=== PATIENT | female | born 1935 ===

== ENCOUNTER 2016-11-03 19:54 | Inpatient (IN) | payer OTHER ==
[2016-11-03 19:55] VITALS: BMI 15.4
[2016-11-03] MEDS ORDERED: Ampicillin/Sulbactam 3 GM in Sodium Chloride 0.9% 100 ML IVPB STA (21:58)
[2016-11-03] MEDS ORDERED: Vancomycin 1gm in NS 250ml 1 GM/250 ML BAG IVPB STA (21:59)
--- NOTE | 2016-11-03 22:41 | ED PDOC ---
Arrival/HPI - General Chief Complaint: Lower Extremity Problem/Injury Time Seen by Provider: 11/03/16 21:52 Historian: Patient - History of Present Illness Narrative History of Present Illness (Text): 11/03/16 21:50 Saniya Valdez is an 81 year old female who presents to the Emergency department for right 3rd toe discoloration and ulcer. Patient recently returned today from a vacation to the [facility] for the last 2 months and notes while there she injured her right 3rd toe 1 month prior. Patient states she went to a doctor there and was given antibiotics, which she took for 1 week and finished yesterday but does not know the name of the medication. Patient came to the Emergency room today because her 3rd right toe is black in appearance and notes a shallow ulcer to the base of the tow. Patient denies any fever, chills, calf pain, chest pain, shortness of breath, headache, dizziness, or any other complaints. As per daughter, patient used to be followed by tariff inspector, Dr. Arevalo. PMD: Dr. Muir Symptom Onset: Gradual Symptom Course: Worsening Activities at Onset: Light Context: Home Past Medical History - Provider Review Nursing Documentation Reviewed: Yes - Travel History If Yes, travel location?: [facility] - Infectious Disease Hx of Infectious Diseases: None - Tetanus Immunization Tetanus Immunization: Unknown - Cardiac Hx Cardiac Disorders: Yes Hx Hypertension: Yes - Pulmonary Hx Respiratory Disorders: Yes Hx Asthma: Yes - Neurological Hx Neurological Disorder: Yes HX Cerebrovascular Accident: Yes (2008) - HEENT Hx HEENT Disorder: Yes Hx Blind: Yes (right eye sx) Hx Cataracts: Yes (left eye sx) - Renal Hx Renal Disorder: No - Endocrine/Metabolic Hx Endocrine Disorders: Yes Hx Diabetes Mellitus Type 2: Yes - Hematological/Oncological Hx Blood Disorders: Yes 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 - Integumentary Hx Cellulitis: Yes - Musculoskeletal/Rheumatological Hx Musculoskeletal Disorders: Yes Hx Falls: Yes - Gastrointestinal Hx Gastrointestinal Disorders: No - Genitourinary/Gynecological Hx Genitourinary Disorders: No - Psychiatric Hx Psychophysiologic Disorder: No Hx Depression: No Hx Emotional Abuse: No Hx Physical Abuse: No Hx Substance Use: No - Past Surgical History Past Surgical History: No Previous - Surgical History Other/Comment: ANGIOGRAM - Anesthesia Hx Anesthesia: Yes - Suicidal Assessment Feels Threatened In Home Enviroment: No Family/Social History - Physician Review Nursing Documentation Reviewed: Yes Family/Social History: Unknown Family HX Smoking Status: Never Smoked Hx Alcohol Use: No Hx Substance Use: No Hx Substance Use Treatment: No Allergies/Home Meds Allergies/Adverse Reactions: Allergies No Known Allergies Allergy (Verified 11/03/16 19:59) Home Medications: Home Meds Medication Instructions Recorded Confirmed Aspirin 81 mg PO DAILY 08/03/12 11/03/16 Glyburide [Micronase] 5 mg PO DAILY 09/03/12 11/03/16 Insulin Detemir [Levemir] 20 unit SC ACB 09/03/12 11/03/16 Carvedilol 6.25 mg PO BID 06/13/13 11/03/16 Sitagliptin Phosphate [Januvia] 50 mg PO DAILY 06/13/13 11/03/16 Lovastatin 20 mg PO DAILY 09/13/13 11/03/16 Vitamin D 50,000 iu PO QWK 09/13/13 11/03/16 Losartan/Hydrochlorothiazide 1 tab PO DAILY 01/25/14 11/03/16 [Losartan-Hctz 50-12.5 mg Tab] Montelukast [Singulair] 10 mg PO DAILY 01/25/14 11/03/16 Review of Systems - Physician Review All systems were reviewed & negative as marked: Yes - Review of Systems Constitutional: Normal. absent: Fevers Eyes: Normal ENT: Normal Respiratory: Normal. absent: SOB, Cough Cardiovascular: Normal. absent: Chest Pain Gastrointestinal: Normal. absent: Abdominal Pain, Diarrhea, Nausea, Vomiting Genitourinary Female: Normal. absent: Dysuria, Frequency, Hematuria, Urine Output Changes Musculoskeletal: Normal. absent: Back Pain, Neck Pain Skin: Ulcer (ulcer to base of right 3rd toe), Other (+black 3rd right toe). absent: Rash Neurological: Normal. absent: Headache, Dizziness Endocrine: Normal Hemo/Lymphatic: Normal Psychiatric: Normal Physical Exam Vital Signs Reviewed: Yes Vital Signs Temp Pulse Resp BP Pulse Ox 11/04/16 03:03 86 16 156/74 H 100 11/03/16 23:55 81 16 177/84 H 99 11/03/16 20:01 99.1 F 69 17 206/71 H 97 Temperature: Afebrile Blood Pressure: Hypertensive Pulse: Regular Respiratory Rate: Normal Appearance: Positive for: Well-Appearing, Non-Toxic, Comfortable Pain Distress: None Mental Status: Positive for: Alert and Oriented X 3 - Systems Exam Head: Present: Atraumatic, Normocephalic Pupils: Present: PERRL Extroacular Muscles: Present: EOMI Conjunctiva: Present: Normal Mouth: Present: Moist Mucous Membranes Neck: Present: Normal Range of Motion Respiratory/Chest: Present: Clear to Auscultation, Good Air Exchange. No: Respiratory Distress, Accessory Muscle Use Cardiovascular: Present: Regular Rate and Rhythm, Normal S1, S2. No: Murmurs Abdomen: Present: Normal Bowel Sounds. No: Tenderness, Distention, Peritoneal Signs Upper Extremity: Present: Normal Inspection. No: Cyanosis, Edema Lower Extremity: Present: NORMAL PULSES (Weak distal pulses in right foot), Normal ROM (Full ROM in all toes), Neurovascularly Intact (Sensation intact), Capillary Refill < 2 s, Other (Right 3rd toe is black in color. Shallow 3x3 cm ulcer to distal 3rd right metatarsal, no discharge, there is surrounding erythema, tender to touch). No: Edema, CALF TENDERNESS Neurological: Present: GCS=15, CN II-XII Intact, Speech Normal Skin: Present: Warm, Dry, Normal Color. No: Rashes Psychiatric: Present: Alert, Oriented x 3, Normal Insight, Normal Concentration Medical Decision Making ED Course and Treatment: 11/03/16 21:50 Impression: 81 year old female complaining of right mid-toe discoloration/pain and ulcer. Plan: -- EKG -- CXR -- Labs, VBG, blood cultures, wound cultures -- XR Right Foot -- Vanco IV -- Unasyn IV -- Reassess and disposition Progress Notes: EKG: NSR at 76 bpm, LVH, (-) acute ST changes, as read by BULMARO. CXR : CM, otherwise NAD, as read by PA XR R foot: no fracture, no dislocation, as read by PA Labs reviewed : wbc is wnl, glucose is 341, lactate 1.1 Patient given regular insulin 6 units SC. On re-evaluation, patient is resting in bed comfortably in no acute distress. Has no additional complaints at this time. Lab and XR findings d/w the patient and with family members. Notified of plan for admission for DM foot ulcer and infection, which the patient and family members agree to. As per family, patient used to follow up with Dr. Arevalo in the past for podiatry. VS: P 81 BP 177/84 99%RA. Case d/w hospitalist Dr. Shay Bartlett, agree with plan for admission. Consult placed for Dr. Arevalo. - Lab Interpretations Microbiology Results: Microbiology Results 11/03/16 22:15 Blood Blood Culture - Preliminary NO GROWTH AFTER 24 HOURS 11/03/16 22:36 Blood Blood Culture - Preliminary NO GROWTH AFTER 24 HOURS Lab Results: 11/03/16 22:36 11/03/16 22:36 Lab Results 11/03/16 22:36: pO2 36, VBG pH 7.34, VBG pCO2 54.0, VBG HCO3 29.1 H, VBG Total CO2 30.8 H, VBG O2 Sat (Calc) 75.4 H, VBG Base Excess 2.5 H, VBG Potassium 4.8, Sodium 135.0, Chloride 103.0, Glucose 339 H, Lactate 1.1, FiO2 21.0, Venous Blood Potassium 4.8 11/03/16 22:36: Sodium 135, Chloride 99, Potassium 5.0, Carbon Dioxide 28, Anion Gap 13, BUN 21, Creatinine 1.1, Est GFR ( Amer) 57, Est GFR (Non- Af Amer) 47, Random Glucose 341 H* D, Calcium 9.4, Total Bilirubin 0.5, AST 25, ALT 21, Alkaline Phosphatase 116, Total Protein 7.3, Albumin 3.6, Globulin 3.7, Albumin/Globulin Ratio 1.0 L 11/03/16 22:36: PT 10.7, INR 0.99, APTT 32.4 H 11/03/16 22:36: WBC 8.8, RBC 4.23, Hgb 11.0 L, Hct 34.0 L, MCV 80.4, MCH 26.0, MCHC 32.4, RDW 14.1, Plt Count 378, MPV 9.8, Gran % 71.9 H, Lymph % (Auto) 16.9 L, [place] % (Auto) 8.9 H, Eos % (Auto) 2.2, Baso % (Auto) 0.1, Gran # 6.32, Lymph # 1.5, [place] # 0.8 H, Eos # 0.2, Baso # 0.01 - RAD Interpretation Narrative RAD Interpretations (Text): 11/05/16 09:32 XR R FOOT: FINDINGS: BONES: No radiographic evidence of acute osteomyelitis. JOINTS: Normal. SOFT TISSUES: Plantar soft tissue swelling. OTHER FINDINGS: None. IMPRESSION: Soft tissue swelling without acute articular or osseous abnormality. There is no radiographic evidence for acute osteomyelitis. Radiology Orders: 11/03/16 21:52 CHEST PORTABLE [RAD] Stat 11/03/16 21:59 FOOT RIGHT 3 VIEWS ROUTINE [RAD] Stat - Medication Orders Current Medication Orders: Acetaminophen (Tylenol 325mg Tab) 650 mg PO Q6H PRN PRN Reason: Fever >100.4 F Last Admin: 11/04/16 20:52 Dose: 650 mg Re-Assess: LESLIE Pain/Vitals Document 11/04/16 21:52 BN (Rec: 11/04/16 22:38 BN [id number]) Vitals Temperature (97.6 F-99.6 F) 99.4 F Temperature Source Oral Aspirin (Aspirin Chewable) 81 mg PO DAILY [facility] Last Admin: 11/04/16 10:42 Dose: 81 mg Atorvastatin Calcium (Lipitor) 10 mg PO DIN [facility] Last Admin: 11/04/16 17:32 Dose: 10 mg Carvedilol (Coreg) 6.25 mg PO BID [facility] Last Admin: 11/04/16 17:32 Dose: 6.25 mg Docusate Sodium (Colace) 100 mg PO BID [facility] Last Admin: 11/04/16 17:32 Dose: 100 mg Ergocalciferol (Drisdol 50,000 Intl Units Cap) 1 cap PO Q7D [facility] Last Admin: 11/04/16 10:44 Dose: 1 cap Hydrochlorothiazide (Microzide) 12.5 mg PO DAILY [facility] Last Admin: 11/04/16 10:43 Dose: 12.5 mg Vancomycin HCl (Vancomycin 1gm) 1 gm in 250 mls @ 167 mls/hr IVPB Q12 VALERIE PRN Reason: Protocol Last Admin: 11/04/16 22:26 Dose: 167 mls/hr Cefepime HCl (Maxipime 1gm) 1 gm in 100 mls @ 100 mls/hr IVPB Q8 VALERIE PRN Reason: Protocol Stop: 11/11/16 14:01 Last Admin: 11/05/16 05:15 Dose: 100 mls/hr Insulin Detemir (Levemir) 20 unit SC DAILY [facility] Last Admin: 11/04/16 14:20 Dose: Insulin Human Regular (Humulin R Med) 0 units SC ACHS VALERIE PRN Reason: Protocol Last Admin: 11/04/16 21:53 Dose: Not Given Non-Admin Reason: Blood Sugar Parameter Losartan Potassium (Cozaar) 50 mg PO DAILY [facility] Last Admin: 11/04/16 10:42 Dose: 50 mg Montelukast Sodium (Singulair) 10 mg PO [facility] Last Admin: 11/04/16 21:14 Dose: 10 mg Oxycodone/Acetaminophen (Percocet 5/325 Mg Tab) 1 tab PO Q4H PRN PRN Reason: Pain, moderate (4-7) Stop: 11/07/16 04:19 Last Admin: 11/04/16 20:48 Dose: 1 tab Re-Assess: LESLIE Pain Assessment Document 11/04/16 21:48 BN (Rec: 11/04/16 22:44 BN [id number]) Pain Reassessment Is this a pain reassessment? Yes Sleep Is patient sleeping during reassessment? Yes Discontinued Medications Hydralazine HCl (Apresoline) 10 mg IVP STAT [facility] Stop: 11/04/16 01:46 Last Admin: 11/04/16 04:32 Dose: 10 mg Ampicillin Sodium/Sulbactam (Sodium 3 gm/ Sodium Chloride) 100 mls @ 100 mls/ hr IVPB STAT STA PRN Reason: Protocol Stop: 11/03/16 22:57 Last Admin: 11/04/16 00:10 Dose: 100 mls/hr Vancomycin HCl (Vancomycin 1gm) 1 gm in 250 mls @ 167 mls/hr IVPB STAT STA PRN Reason: Protocol Stop: 11/03/16 23:28 Last Admin: 11/03/16 22:33 Dose: 167 mls/hr Sodium Chloride (Sodium Chloride 0.9%) 500 mls @ 500 mls/hr IV .Q1H STA Stop: 11/04/16 01:16 Last Admin: 11/04/16 00:55 Dose: 500 mls/hr Insulin Human Regular (Humulin R) 6 units SC STAT ST[facility] Stop: 11/04/16 00:18 Last Admin: 11/04/16 01:08 Dose: 6 units - PA / PARI [employer] / Resident Statement / has reviewed & agrees with the documentation as recorded. Disposition/Present on Arrival - Present on Arrival Any Indicators Present on Arrival: Yes History of DVT/PE: No History of Uncontrolled Diabetes: Yes Urinary Catheter: No History of Decub. Ulcer: No History Surgical Site Infection Following: None - Disposition Have Diagnosis and Disposition been Completed?: Yes Diagnosis: DM foot ulcer Disposition: HOSPITALIZED Disposition Time: 00:00 Patient Plan: Admission Condition: STABLE
[2016-11-03 22:42] LABS: VENOUS BLOOD GAS BASE EXCESS 2.5 mmol/L (0.0-2.0); VENOUS BLOOD PH 7.34 (7.32-7.43)
[2016-11-03 22:47] LABS: BASO # 0.01 K/mm3 (0.0-2.0); BASO % 0.1 % (0.0-3.0); EOS # 0.2 (0.0-0.7); EOS % 2.2 % (1.5-5.0); GRAN # 6.32 (1.4-6.5); GRAN % 71.9 % (50.0-68.0); LYMPH # 1.5 (1.2-3.4); LYMPH % 16.9 % (22.0-35.0); MEAN CELL VOLUME 80.4 fl (80.0-105.0); MEAN CORPUSCULAR HGB CONC 32.4 g/dl (31.0-37.0); MEAN PLATELET VOLUME 9.8 fl (7.0-11.0); MONO # 0.8 (0.1-0.6); MONO % 8.9 % (1.0-6.0); RED CELL DISTRIBUTION WIDTH 14.1 % (11.5-14.5); WHITE BLOOD COUNT 8.8 10^3/ul (4.5-11.0)
[2016-11-03 22:56] LABS: INR 0.99 (0.93-1.08); PARTIAL THROMBOPLASTIN TIME 32.4 Seconds (23.7-30.8)
[2016-11-03 23:13] LABS: BILIRUBIN,TOTAL 0.5 mg/dL (0.2-1.3); CALCIUM 9.4 mg/dL (8.4-10.5); TOTAL PROTEIN 7.3 g/dL (5.8-8.3)
[2016-11-04] MEDS ORDERED: Sodium Chloride 0.9% 500 ML IV STA (00:17)
[2016-11-04] MEDS ORDERED: Insulin Regular 1 UNITS/0.01 ML ML SC STA (00:17)
--- NOTE | 2016-11-04 01:54 | CP.PCM.HP ---
<ROMELIARANI - Last Filed: 11/04/16 01:46> History of Present Illness - History of Present Illness History of Present Illness: Rani Dupont, PGY1, H&P for Dr. Bartlett: CC: R toe discoloration HPI: 81F with PMH IDDM, HTN, HLD, presents for right 3rd toes discoloration. Pt also has a shallow, right distal foot ulcer. It started when pt hit her right foot 1 month ago in [place], had an open wound, painful at times, with worsening about a week ago, with a bullae formation at the ulcer site, which was drained by a doctor in [place] days ago, and was given 4 days of unknown PO antibiotics (pt finished last dose today). Pt had worsening of the ulcer, sharp, painful, with swelling, erythema, warmth at the site, and noticed a "black" right 3rd toe 2 days ago, which made pt come to ED. Denies f/c, n/v, air /crepitations, worsening erythema, calf pain. In ED, pt T 99.1, hypertensive 206 /71, hyperglycemic 341, hgb 11 (baseline 10-11), ptt 32.4, lactate nrml 1.1, received 6 units of regular insulin, 500 ml NS bolus, 1 dose of IV Vanco and Unsayn in ED. Currently, pt denies pain, cp, sob, diaphoresis, abdominal pain, poor appetitie , anorexia, fatigue, urinary symptoms, leg swelling. Steel Hanger: Dr. Arevalo (was recently treated for a left foot ulcer 6 months ago ) PMD: [facility] Prev Hosp: 2014: dehydration and syncope at [facility] PMH: IDDM, HTN, CVA. HLD, Asthma PSH: Denies All : NKA FH: Mom, DM SH: Lives with family. Denies alcohol, drug or tobacco use. Came back to [place] from [facility] yesterday, for a 2 month vacation. Present on Admission - Present on Admission Any Indicators Present on Admission: No History of DVT/PE: No History of Uncontrolled Diabetes: Yes Urinary Catheter: No Decubitus Ulcer Present: No History Surgical Site Infection Following: None Review of Systems - Review of Systems All systems: reviewed and no additional remarkable complaints except Review of Systems: as per hpi Past Patient History - Infectious Disease Hx of Infectious Diseases: None - Tetanus Immunizations Tetanus Immunization: Unknown - Past Medical History & Family History Past Medical History?: Yes - Past Social History Smoking Status: Never Smoked - CARDIAC Hx Cardiac Disorders: Yes Hx Hypertension: Yes - PULMONARY Hx Respiratory Disorders: Yes Hx Asthma: Yes - NEUROLOGICAL Hx Neurological Disorder: Yes HX Cerebrovascular Accident: Yes (2008) - HEENT Hx HEENT Problems: Yes Hx Blind: Yes (right eye sx) Hx Cataracts: Yes (left eye sx) - RENAL Hx Chronic Kidney Disease: No - ENDOCRINE/METABOLIC Hx Endocrine Disorders: Yes Hx Diabetes Mellitus Type 2: Yes - HEMATOLOGICAL/ONCOLOGICAL Hx Blood Disorders: Yes 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 - INTEGUMENTARY Hx Cellulitis: Yes - MUSCULOSKELETAL/RHEUMATOLOGICAL Hx Musculoskeletal Disorders: Yes Hx Falls: Yes - GASTROINTESTINAL Hx Gastrointestinal Disorders: No - GENITOURINARY/GYNECOLOGICAL Hx Genitourinary Disorders: No - PSYCHIATRIC Hx Psychophysiologic Disorder: No Hx Depression: No Hx Emotional Abuse: No Hx Physical Abuse: No Hx Substance Use: No - SURGICAL HISTORY Other/Comment: ANGIOGRAM - ANESTHESIA Hx Anesthesia: Yes Meds Allergies/Adverse Reactions: Allergies Allergy/AdvReac Type Severity Reaction Status Date / Time No Known Allergies Allergy Verified 11/03/16 19:59 Physical Exam - Constitutional Appears: Non-toxic, Unkempt, Older Than Stated Age, Cachectic - Head Exam Head Exam: ATRAUMATIC, NORMOCEPHALIC - Eye Exam Eye Exam: EOMI, Normal appearance. 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 Negative for: Lymphadenopathy, Thyromegaly - Respiratory Exam Respiratory Exam: Clear to Auscultation Bilateral, NORMAL BREATHING PATTERN. absent: Accessory Muscle Use, Rales, Rhonchi, Wheezes - Cardiovascular Exam Cardiovascular Exam: RRR, +S1, +S2. absent: Bradycardia, Tachycardia, Systolic Murmur - GI/Abdominal Exam GI & Abdominal Exam: Normal Bowel Sounds, Soft. absent: Distended, Guarding, Rebound, Tenderness - Extremities Exam Extremities exam: Negative for: calf tenderness Additional comments: pedal pulses 1+ b/l. chronic venous stasis changes noted. R foot distal ulcer noted near R 3rd toe, 3 cmx3.7 cm, red/white in color, R 3rd toes black in color , no purulent discharge or abscess or eschar noted. No crepitations/bullae present. Line of demarcation up to mid foot. - Back Exam Back exam: absent: CVA tenderness (L), CVA tenderness (R), rash noted - Neurological Exam Neurological exam: Alert, Oriented x3 - Psychiatric Exam Psychiatric exam: Normal Mood - Skin Skin Exam: Dry, Warm Results - Vital Signs Recent Vital Signs: Last Vital Signs Temp 99.1 F 11/03/16 20:01 Pulse 81 11/03/16 23:55 Resp 16 11/03/16 23:55 BP 177/84 H 11/03/16 23:55 Pulse Ox 99 11/03/16 23:55 - Labs Result Diagrams: 11/03/16 22:36 11/03/16 22:36 Labs: Laboratory Results - last 24 hr 11/03/16 11/03/16 11/03/16 22:36 22:36 22:36 WBC 8.8 RBC 4.23 Hgb 11.0 L Hct 34.0 L MCV 80.4 MCH 26.0 MCHC 32.4 RDW 14.1 Plt Count 378 MPV 9.8 Gran % 71.9 H Lymph % (Auto) 16.9 L [place] % (Auto) 8.9 H Eos % (Auto) 2.2 Baso % (Auto) 0.1 Gran # 6.32 Lymph # 1.5 [place] # 0.8 H Eos # 0.2 Baso # 0.01 PT 10.7 INR 0.99 APTT 32.4 H pO2 VBG pH VBG pCO2 VBG HCO3 VBG Total CO2 VBG O2 Sat (Calc) VBG Base Excess VBG Potassium Sodium 135 Chloride 99 Glucose Lactate FiO2 Potassium 5.0 Carbon Dioxide 28 Anion Gap 13 BUN 21 Creatinine 1.1 Est GFR ( Amer) 57 Est GFR (Non-Af Amer) 47 Random Glucose 341 H* D Calcium 9.4 Total Bilirubin 0.5 AST 25 ALT 21 Alkaline Phosphatase 116 Total Protein 7.3 Albumin 3.6 Globulin 3.7 Albumin/Globulin Ratio 1.0 L Venous Blood Potassium 11/03/16 22:36 WBC RBC Hgb Hct MCV MCH MCHC RDW Plt Count MPV Gran % Lymph % (Auto) [place] % (Auto) Eos % (Auto) Baso % (Auto) Gran # Lymph # [place] # Eos # Baso # PT INR APTT pO2 36 VBG pH 7.34 VBG pCO2 54.0 VBG HCO3 29.1 H VBG Total CO2 30.8 H VBG O2 Sat (Calc) 75.4 H VBG Base Excess 2.5 H VBG Potassium 4.8 Sodium 135.0 Chloride 103.0 Glucose 339 H Lactate 1.1 FiO2 21.0 Potassium Carbon Dioxide Anion Gap BUN Creatinine Est GFR ( Amer) Est GFR (Non-Af Amer) Random Glucose Calcium Total Bilirubin AST ALT Alkaline Phosphatase Total Protein Albumin Globulin Albumin/Globulin Ratio Venous Blood Potassium 4.8 Assessment & Plan - Assessment and Plan (Free Text) Assessment: 81F with PMH IDDM, HTN, HLD, CVA, presents for right 3rd toe discoloration, right distal foot ulcer, uncontrolled HTN, hyperglycemia. Plan: Right distal foot ulcer near right 3rd toe/necrotic R 3rd toe: - likely cellulitis vs osteomyelitis vs less likely necrotizing fascitis vs necrosis of toe - T 99.1, received 4 days of PO outpatient antibiotic therapy (finished last dose today) - unknown antibiotic. - F/u blood and wound cultures - Received Vanco 1 gm IVx1, and Unasyn 3 gm IV x1, in ED - Will start on Vanco (for MRSA) and Ceftriaxone (for Gr neg coverage), since pt is diabetic - F.u Podiatry consult, recs. Consider MRI to r/o osteomyelitis. May do CT if concern nec fascitis. f/u CRP, ESR - maintain tight glycemic control Hypertension: - BP 206/71 in ED, will give hydralazine 10 mg iV - C/w home meds carvedilol and losartan/hctz IDDM: - BS 341 in ED, received 6 units of SQ regular insulin. - hold home oral antidiabetics - c.w home levemir and on ISS Hx of HLD: - f/u lipid panel - c/w lovastatin Hx of asthma: singulair DVT ppx: SCDs GI ppx: protonix Discussed with Dr Dhruv Dupont, PGY1 - Date & Time Date: 11/04/16 Time: 02:03 <Martir Bartlett - Last Filed: 11/12/16 06:54> Results - Vital Signs Recent Vital Signs: Last Vital Signs Temp 100.9 F H 11/12/16 05:48 Pulse 71 11/11/16 19:50 Resp 18 11/11/16 17:50 BP 161/84 H 11/11/16 19:50 Pulse Ox 100 11/11/16 17:50 - Labs Result Diagrams: 11/11/16 08:35 11/11/16 08:35 Labs: Laboratory Results - last 24 hr 11/11/16 11/11/16 11/11/16 08:35 08:35 11:26 WBC 10.7 RBC 3.07 L Hgb 8.0 L Hct 24.6 L MCV 80.1 MCH 26.1 MCHC 32.5 RDW 14.3 Plt Count 274 MPV 9.4 Gran % 68.1 H Lymph % (Auto) 13.8 L [place] % (Auto) 14.2 H Eos % (Auto) 3.7 Baso % (Auto) 0.2 Gran # 7.27 H Lymph # 1.5 [place] # 1.5 H Eos # 0.4 Baso # 0.02 Sodium 132 Potassium 4.1 Chloride 100 Carbon Dioxide 25 Anion Gap 11 BUN 25 H Creatinine 1.2 Est GFR ( Amer) 52 Est GFR (Non-Af Amer) 43 POC Glucose (mg/dL) 148 H Random Glucose 124 H Calcium 8.6 Total Bilirubin 0.5 AST 37 H ALT 45 Alkaline Phosphatase 87 Total Protein 5.7 L Albumin 2.6 L Globulin 3.2 Albumin/Globulin Ratio 0.8 L 11/11/16 11/11/16 15:59 16:01 WBC RBC Hgb Hct MCV MCH MCHC RDW Plt Count MPV Gran % Lymph % (Auto) [place] % (Auto) Eos % (Auto) Baso % (Auto) Gran # Lymph # [place] # Eos # Baso # Sodium Potassium Chloride Carbon Dioxide Anion Gap BUN Creatinine Est GFR ( Amer) Est GFR (Non-Af Amer) POC Glucose (mg/dL) 131 H 181 H Random Glucose Calcium Total Bilirubin AST ALT Alkaline Phosphatase Total Protein Albumin Globulin Albumin/Globulin Ratio
[2016-11-04] MEDS: Oxycodone/Acetaminophen 5/325 mg Tab PO PRN ×2 (04:32→20:48)
[2016-11-04 07:28] LABS: IRON 15 ug/dL (45-180)
[2016-11-04 07:32] LABS: CHOLESTEROL 136 mg/dL (130-200)
[2016-11-04] MEDS: Insulin Reg-MEDIUM-Coverage SC SCH ×4 (08:08→21:53)
--- NOTE | 2016-11-04 08:26 | RAD ---
HISTORY: for admission DM foot ulcer COMPARISON: 01/25/2014 FINDINGS: LUNGS: Retrocardiac haziness possibly left lower lobe atelectasis. PLEURA: No significant pleural effusion identified, no pneumothorax apparent. CARDIOVASCULAR: No radiographic findings to suggest acute or significant cardiovascular disease. OSSEOUS STRUCTURES: No significant abnormalities. VISUALIZED UPPER ABDOMEN: Normal. OTHER FINDINGS: None. IMPRESSION: Left lower lobe infiltrate/atelectasis. The left hemidiaphragm is obscured. These are new findings compared to the prior study.
[2016-11-04] MEDS ORDERED: Non Formulary Medication (Losartan/Hydrochlorothiazide [Losartan-Hctz 50-12.5 Mg Tab] 1 TA PO SCH (10:00)
[2016-11-04] MEDS ORDERED: Insulin Detemir 100 units/ml Vial (Levemir) SC SCH (10:00)
--- NOTE | 2016-11-04 10:30 | RAD ---
PROCEDURE: Right Foot Radiographs. HISTORY: DM foot ulcer COMPARISON: None. FINDINGS: BONES: No radiographic evidence of acute osteomyelitis. JOINTS: Normal. SOFT TISSUES: Plantar soft tissue swelling. OTHER FINDINGS: None. IMPRESSION: Soft tissue swelling without acute articular or osseous abnormality. There is no radiographic evidence for acute osteomyelitis.
[2016-11-04] MEDS: Vancomycin 1gm in NS 250ml 1 GM/250 ML BAG IVPB SCH ×2 (10:42→22:26)
[2016-11-04] MEDS: Ergocalciferol 50,000 Intl Units Cap PO SCH (10:44)
[2016-11-04 11:21] LABS: HEMATOCRIT 33.4 % (36.0-48.0); MEAN CELL VOLUME 80.7 fl (80.0-105.0); MEAN CORPUSCULAR HEMOGLOBIN 25.8 pg (25.0-35.0); MEAN PLATELET VOLUME 9.6 fl (7.0-11.0); RED CELL DISTRIBUTION WIDTH 14.1 % (11.5-14.5); WHITE BLOOD COUNT 15.9 10^3/ul (4.5-11.0)
[2016-11-04 11:35] LABS: BLOOD UREA NITROGEN 20 mg/dL (7-21); CALCIUM 9.3 mg/dL (8.4-10.5); CARBON DIOXIDE 27 mmol/L (21-33); CHLORIDE 102 mmol/L (98-107); GFR AFRICAN-AMERICAN > 60; GLUCOSE,RANDOM 251 mg/dL (70-110); SODIUM 137 mmol/L (132-148)
[2016-11-04 13:20] LABS: FOLATE 10.2 ng/mL
[2016-11-04] MEDS: Cefepime 1gm in NS 100ml 1 GM/100 ML BAG IVPB SCH ×2 (14:20→21:14)
--- NOTE | 2016-11-04 19:46 | CP.PCM.CON ---
History of Present Illness - History of Present Illness History of Present Illness: 81 year old female with PMH of HTN, dyslipidemia, DM, history of CVA, asthma, history of left foot ulcer and infection was brought in to [facility] because of worsening right foot ulcer which started about a month ago when she tripped on a rock while in the [facility] [place]. She also noted that the surrounding foot area got worse over the last 3 days and became warm, red and painful. She was apparently seen in the [facility] [place] by a physician and also noted her 3rd toe to have blackish discoloration. She denies fever or chills, no nausea or vomiting, no headache or dizziness, no chest pain, no SOB, no cough or colds, no abdominal pain, no diarrhea, no dysuria. She denies soaking her feet in water, denies specific animal contacts. Infectious Diseases consult is requested to further evaluate and manage. Review of Systems - Review of Systems All systems: reviewed and no additional remarkable complaints except (as per HPI ) Past Patient History - Infectious Disease Hx of Infectious Diseases: None - Tetanus Immunizations Tetanus Immunization: Unknown - Past Medical History & Family History Past Medical History?: Yes - Past Social History Smoking Status: Never Smoked - CARDIAC Hx Cardiac Disorders: Yes Hx Hypertension: Yes - PULMONARY Hx Respiratory Disorders: Yes Hx Asthma: Yes - NEUROLOGICAL Hx Neurological Disorder: Yes HX Cerebrovascular Accident: Yes (2008) - HEENT Hx HEENT Problems: Yes Hx Blind: Yes (right eye sx) Hx Cataracts: Yes (left eye sx) - RENAL Hx Chronic Kidney Disease: No - ENDOCRINE/METABOLIC Hx Endocrine Disorders: Yes Hx Diabetes Mellitus Type 2: Yes - HEMATOLOGICAL/ONCOLOGICAL Hx Blood Disorders: Yes 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 - INTEGUMENTARY Hx Cellulitis: Yes - MUSCULOSKELETAL/RHEUMATOLOGICAL Hx Musculoskeletal Disorders: Yes Hx Falls: Yes - GASTROINTESTINAL Hx Gastrointestinal Disorders: No - GENITOURINARY/GYNECOLOGICAL Hx Genitourinary Disorders: No - PSYCHIATRIC Hx Psychophysiologic Disorder: No Hx Depression: No Hx Emotional Abuse: No Hx Physical Abuse: No Hx Substance Use: No - SURGICAL HISTORY Other/Comment: ANGIOGRAM - ANESTHESIA Hx Anesthesia: Yes Meds Allergies/Adverse Reactions: Allergies Allergy/AdvReac Type Severity Reaction Status Date / Time No Known Allergies Allergy Verified 11/03/16 19:59 - Medications Medications: Current Medications Acetaminophen (Tylenol 325mg Tab) 650 mg PO Q6H PRN PRN Reason: Fever >100.4 F Aspirin (Aspirin Chewable) 81 mg PO DAILY [facility] Last Admin: 11/04/16 10:42 Dose: 81 mg Atorvastatin Calcium (Lipitor) 10 mg PO DIN [facility] Last Admin: 11/04/16 17:32 Dose: 10 mg Carvedilol (Coreg) 6.25 mg PO BID [facility] Last Admin: 11/04/16 17:32 Dose: 6.25 mg Docusate Sodium (Colace) 100 mg PO BID [facility] Last Admin: 11/04/16 17:32 Dose: 100 mg Ergocalciferol (Drisdol 50,000 Intl Units Cap) 1 cap PO Q7D [facility] Last Admin: 11/04/16 10:44 Dose: 1 cap Hydrochlorothiazide (Microzide) 12.5 mg PO DAILY [facility] Last Admin: 11/04/16 10:43 Dose: 12.5 mg Vancomycin HCl (Vancomycin 1gm) 1 gm in 250 mls @ 167 mls/hr IVPB Q12 [facility] PRN Reason: Protocol Last Admin: 11/04/16 10:42 Dose: 167 mls/hr Cefepime HCl (Maxipime 1gm) 1 gm in 100 mls @ 100 mls/hr IVPB Q8 [facility] PRN Reason: Protocol Stop: 11/11/16 14:01 Last Admin: 11/04/16 14:20 Dose: 100 mls/hr Insulin Detemir (Levemir) 20 unit SC DAILY [facility] Last Admin: 11/04/16 14:20 Dose: Not Given Insulin Human Regular (Humulin R Med) 0 units SC ACHS [facility] PRN Reason: Protocol Last Admin: 11/04/16 17:33 Dose: Not Given Losartan Potassium (Cozaar) 50 mg PO DAILY [facility] Last Admin: 11/04/16 10:42 Dose: 50 mg Montelukast Sodium (Singulair) 10 mg PO HS [facility] Oxycodone/Acetaminophen (Percocet 5/325 Mg Tab) 1 tab PO Q4H PRN PRN Reason: Pain, moderate (4-7) Stop: 11/07/16 04:19 Last Admin: 11/04/16 04:32 Dose: 1 tab Physical Exam - Constitutional Appears: Non-toxic, No Acute Distress - Head Exam Head Exam: NORMAL INSPECTION - ENT Exam ENT Exam: Mucous Membranes Moist - Neck Exam Neck exam: Negative for: Lymphadenopathy, Meningismus - Respiratory Exam Respiratory Exam: Decreased Breath Sounds - Cardiovascular Exam Cardiovascular Exam: +S1, +S2 - GI/Abdominal Exam GI & Abdominal Exam: Soft. absent: Tenderness - Extremities Exam Additional comments: right foot with dressings in place Results - Vital Signs Recent Vital Signs: Last Vital Signs Temp 99.7 F H 11/04/16 16:00 Pulse 80 11/04/16 17:32 Resp 20 11/04/16 16:00 BP 163/76 H 11/04/16 17:32 Pulse Ox 98 11/04/16 16:00 - Labs Result Diagrams: 11/04/16 11:00 11/04/16 11:00 Labs: Laboratory Results - last 24 hr 11/04/16 11/04/16 11/04/16 02:53 05:46 06:15 WBC RBC Hgb Hct MCV MCH MCHC RDW Plt Count MPV ESR Sodium Potassium Chloride Carbon Dioxide Anion Gap BUN Creatinine Est GFR ( Amer) Est GFR (Non-Af Amer) POC Glucose (mg/dL) 208 H Random Glucose Calcium Iron 15 L TIBC 251 L % Saturation 6 L Ferritin Total Creatine Kinase 62 C-React Prot High Sens Triglycerides Cholesterol LDL Cholesterol Direct HDL Cholesterol Vitamin B12 Folate Procalcitonin 11/04/16 11/04/16 11/04/16 06:15 06:15 06:15 WBC RBC Hgb Hct MCV MCH MCHC RDW Plt Count MPV ESR 70 H Sodium Potassium Chloride Carbon Dioxide Anion Gap BUN Creatinine Est GFR ( Amer) Est GFR (Non-Af Amer) POC Glucose (mg/dL) Random Glucose Calcium Iron TIBC % Saturation Ferritin 98.7 Total Creatine Kinase C-React Prot High Sens > 15.00 H Triglycerides 101 Cholesterol 136 LDL Cholesterol Direct 68 HDL Cholesterol 39 Vitamin B12 > 1000 H Folate 10.2 Procalcitonin 11/04/16 11/04/16 11/04/16 07:06 07:39 08:47 WBC RBC Hgb Hct MCV MCH MCHC RDW Plt Count MPV ESR Sodium Potassium Chloride Carbon Dioxide Anion Gap BUN Creatinine Est GFR ( Amer) Est GFR (Non-Af Amer) POC Glucose (mg/dL) 35 L* 68 176 H Random Glucose Calcium Iron TIBC % Saturation Ferritin Total Creatine Kinase C-React Prot High Sens Triglycerides Cholesterol LDL Cholesterol Direct HDL Cholesterol Vitamin B12 Folate Procalcitonin 11/04/16 11/04/16 11/04/16 10:58 11:00 11:00 WBC 15.9 H D RBC 4.14 Hgb 10.7 L Hct 33.4 L MCV 80.7 MCH 25.8 MCHC 32.0 RDW 14.1 Plt Count 399 MPV 9.6 ESR Sodium 137 Potassium 5.0 Chloride 102 Carbon Dioxide 27 Anion Gap 13 BUN 20 Creatinine 1.0 Est GFR ( Amer) > 60 Est GFR (Non-Af Amer) 53 POC Glucose (mg/dL) 283 H Random Glucose 251 H Calcium 9.3 Iron TIBC % Saturation Ferritin Total Creatine Kinase C-React Prot High Sens Triglycerides Cholesterol LDL Cholesterol Direct HDL Cholesterol Vitamin B12 Folate Procalcitonin 11/04/16 11/04/16 11:10 16:30 WBC RBC Hgb Hct MCV MCH MCHC RDW Plt Count MPV ESR Sodium Potassium Chloride Carbon Dioxide Anion Gap BUN Creatinine Est GFR ( Amer) Est GFR (Non-Af Amer) POC Glucose (mg/dL) 311 H Random Glucose Calcium Iron TIBC % Saturation Ferritin Total Creatine Kinase C-React Prot High Sens Triglycerides Cholesterol LDL Cholesterol Direct HDL Cholesterol Vitamin B12 Folate Procalcitonin 0.13 L Assessment & Plan - Assessment and Plan (Free Text) Plan: Assessment Consider infected right foot ulcer with cellulitis, R/O peripheral arterial disease R/O osteomyelitis HTN dyslipidemia DM history of CVA asthma history of left foot ulcer and infection Plan Started patient on Vancomycin and Cefepime pending blood and wound cx; ESR and CRP are both elevated foot xray does not show osteomyelitis - may need MRI but will wait for Podiatry evaluation will also get doppler U/S to rule out peripheral vascular disease
--- NOTE | 2016-11-04 20:57 | CARD ---
APPROVED REPORT EKG Measurement Heart [id number] <Conclusion> Normal sinus rhythm Possible Left atrial enlargement Left ventricular hypertrophy Cannot rule out Septal infarct, age undetermined Abnormal ECG
[2016-11-05] MEDS: Cefepime 1gm in NS 100ml 1 GM/100 ML BAG IVPB SCH ×3 (05:15→21:17)
[2016-11-05 06:57] LABS: HEMATOCRIT 24.6 % (36.0-48.0); MEAN CELL VOLUME 80.1 fl (80.0-105.0); MEAN CORPUSCULAR HEMOGLOBIN 26.1 pg (25.0-35.0); MEAN CORPUSCULAR HGB CONC 32.5 g/dl (31.0-37.0); MEAN PLATELET VOLUME 9.3 fl (7.0-11.0); RED CELL DISTRIBUTION WIDTH 14.4 % (11.5-14.5); WHITE BLOOD COUNT 7.7 10^3/ul (4.5-11.0)
[2016-11-05 07:20] LABS: ALB/GLOB RATIO 0.8 (1.1-1.8); ALKALINE PHOSPHATASE 72 U/L (38-126); ALT/SGPT 25 U/L (7-56); AST/SGOT 23 U/L (14-36); BILIRUBIN,TOTAL 0.5 mg/dL (0.2-1.3); BLOOD UREA NITROGEN 22 mg/dL (7-21); CALCIUM 8.3 mg/dL (8.4-10.5); CARBON DIOXIDE 26 mmol/L (21-33); CHLORIDE 103 mmol/L (98-107); GFR AFRICAN-AMERICAN > 60; GLUCOSE,RANDOM 215 mg/dL (70-110); POTASSIUM 4.3 mmol/L (3.6-5.0); SODIUM 133 mmol/L (132-148); TOTAL PROTEIN 5.4 g/dL (5.8-8.3)
[2016-11-05 09:30] LABS: HEMATOCRIT 26.8 % (36.0-48.0)
[2016-11-05] MEDS: Insulin Reg-MEDIUM-Coverage SC SCH ×4 (09:59→22:11)
[2016-11-05] MEDS: Vancomycin 1gm in NS 250ml 1 GM/250 ML BAG IVPB SCH ×2 (10:01→22:30)
--- NOTE | 2016-11-05 10:49 | US ---
HISTORY: Leg pain and swelling. Evaluate for DVT PHYSICIAN(S): Cj Martinez MD. TECHNIQUE: Duplex sonography and color-flow Doppler with graded compression were used to evaluate the deep venous systems of both lower extremities. FINDINGS: The visualized deep venous systems of both lower extremities are sonographically normal and compressible. Normal wave forms and augmentation are seen. There is no sonographic evidence for deep venous thrombosis in the visualized segments of both lower extremities. IMPRESSION: No sonographic evidence for deep venous thrombosis in the visualized segments of both lower extremities.
--- NOTE | 2016-11-05 10:56 | CP.PCM.PN ---
<Adalid Lew - Last Filed: 11/05/16 11:06> Subjective - Date & Time of Evaluation Date of Evaluation: 11/05/16 Time of Evaluation: 09:15 - Subjective Subjective: Patient was seen and examined at bedside. Patient continues to report pain in her right foot. The patient denies any chest pain, shortness of breath, nausea , vomiting, lightheadedness, dizziness, changes in vision, changes in appetite or any other complaints. Objective - Vital Signs/Intake and Output Vital Signs (last 24 hours): Temp Pulse Resp BP Pulse Ox 98.4 F 61 20 124/60 96 11/05/16 07:33 11/05/16 07:33 11/05/16 07:33 11/05/16 09:58 11/05/16 07:33 Intake and Output: 11/05/16 11/05/16 06:59 18:59 Intake Total 480 Balance 480 - Medications Medications: Current Medications Acetaminophen (Tylenol 325mg Tab) 650 mg PO Q6H PRN PRN Reason: Fever >100.4 F Last Admin: 11/04/16 20:52 Dose: 650 mg Aspirin (Aspirin Chewable) 81 mg PO DAILY [facility] Last Admin: 11/05/16 09:58 Dose: 81 mg Atorvastatin Calcium (Lipitor) 10 mg PO DIN [facility] Last Admin: 11/04/16 17:32 Dose: 10 mg Carvedilol (Coreg) 6.25 mg PO BID [facility] Last Admin: 11/05/16 09:58 Dose: 6.25 mg Docusate Sodium (Colace) 100 mg PO BID [facility] Last Admin: 11/05/16 09:58 Dose: 100 mg Ergocalciferol (Drisdol 50,000 Intl Units Cap) 1 cap PO Q7D [facility] Last Admin: 11/04/16 10:44 Dose: 1 cap Hydrochlorothiazide (Microzide) 12.5 mg PO DAILY [facility] Last Admin: 11/05/16 09:59 Dose: 12.5 mg Vancomycin HCl (Vancomycin 1gm) 1 gm in 250 mls @ 167 mls/hr IVPB Q12 [facility] PRN Reason: Protocol Last Admin: 11/05/16 10:01 Dose: 167 mls/hr Cefepime HCl (Maxipime 1gm) 1 gm in 100 mls @ 100 mls/hr IVPB Q8 [facility] PRN Reason: Protocol Stop: 11/11/16 14:01 Last Admin: 11/05/16 05:15 Dose: 100 mls/hr Insulin Detemir (Levemir) 10 unit SC DAILY [facility] Insulin Human Regular (Humulin R Med) 0 units SC ACHS [facility] PRN Reason: Protocol Last Admin: 11/05/16 09:59 Dose: 5 units Losartan Potassium (Cozaar) 50 mg PO DAILY [facility] Last Admin: 11/05/16 09:57 Dose: 50 mg Montelukast Sodium (Singulair) 10 mg PO HS [facility] Last Admin: 11/04/16 21:14 Dose: 10 mg Oxycodone/Acetaminophen (Percocet 5/325 Mg Tab) 1 tab PO Q4H PRN PRN Reason: Pain, moderate (4-7) Stop: 11/07/16 04:19 Last Admin: 11/04/16 20:48 Dose: 1 tab - Labs Labs: 11/05/16 09:24 11/05/16 06:30 PT 10.7 Seconds (9.9-11.8) 11/03/16 22:36 INR 0.99 (0.93-1.08) 11/03/16 22:36 APTT 32.4 Seconds (23.7-30.8) H 11/03/16 22:36 - Head Exam Head Exam: ATRAUMATIC, NORMAL INSPECTION, NORMOCEPHALIC - Eye Exam Eye Exam: EOMI, Normal appearance, PERRL Pupil Exam: NORMAL ACCOMODATION, PERRL. absent: Irregular - ENT Exam ENT Exam: Mucous Membranes Moist, Normal Exam - Neck Exam Neck Exam: Normal Inspection. absent: Thyromegaly - Respiratory Exam Respiratory Exam: Clear to Ausculation Bilateral, NORMAL BREATHING PATTERN. absent: Rales, Rhonchi - Cardiovascular Exam Cardiovascular Exam: REGULAR RHYTHM, RRR, +S1, +S2. absent: Bradycardia, Tachycardia, Diastolic murmur, Rubs - GI/Abdominal Exam GI & Abdominal Exam: Soft, Normal Bowel Sounds - Extremities Exam Additional comments: Right foot ulcer noted. Blackening of third toe appreciated. - Back Exam Back Exam: NORMAL INSPECTION. absent: paraspinal tenderness - Psychiatric Exam Psychiatric exam: Normal Affect, Normal Mood - Skin Skin Exam: Dry Assessment and Plan - Assessment and Plan (Free Text) Assessment: 81F with PMH IDDM, HTN, HLD, CVA, presents for right 3rd toe discoloration, right distal foot ulcer, uncontrolled HTN, hyperglycemia. Plan: Right distal foot ulcer near right 3rd toe/necrotic R 3rd toe: -Foot Xray: Showed soft tissue swelling w/o acute articular/osseous abnormality , and no signs of osteomyelitis. - Podiatry recs appreciated. - Blood and wound cultures final results pending. - Received Vanco 1 gm IVx1, and Unasyn 3 gm IV x1, in ED - Continue Vacomycin and Cefepime -Consider MRI to r/o osteomyelitis. May do CT if concern nec fascitis. f/u CRP, ESR - Patient had an episode of hypoglycemia after receiving her insulin. Administered 10 Units this morning. Will continue to monitor glucose levels. Hypertension: - C/w home meds carvedilol and losartan/hctz IDDM: - Patient had an episode of hypoglycemia after receiving her insulin. Administered 10 Units this morning. Will continue to monitor glucose levels. - BS 341 in ED, received 6 units of SQ regular insulin. - hold home oral antidiabetics - c.w home levemir and on ISS. Hx of HLD: - c/w lovastatin Hx of asthma: -singulair DVT ppx: SCDs GI ppx: protonix <Yara CAMACHO,[employer] - Last Filed: 11/07/16 18:18> Objective - Vital Signs/Intake and Output Vital Signs (last 24 hours): Temp Pulse Resp BP Pulse Ox 98.1 F 60 18 143/70 94 L 11/07/16 16:00 11/07/16 17:32 11/07/16 16:00 11/07/16 17:32 11/07/16 16:00 Intake and Output: 11/07/16 11/07/16 06:59 18:59 Intake Total 660 420 Output Total 200 Balance 460 420 - Medications Medications: Current Medications Acetaminophen (Tylenol 325mg Tab) 650 mg PO Q6H PRN PRN Reason: Fever >100.4 F Last Admin: 11/07/16 07:04 Dose: 650 mg Aspirin (Aspirin Chewable) 81 mg PO DAILY [facility] Last Admin: 11/07/16 10:44 Dose: 81 mg Atorvastatin Calcium (Lipitor) 10 mg PO DIN [facility] Last Admin: 11/07/16 17:31 Dose: 10 mg Carvedilol (Coreg) 6.25 mg PO BID [facility] Last Admin: 11/07/16 17:32 Dose: 6.25 mg Docusate Sodium (Colace) 100 mg PO BID [facility] Last Admin: 11/07/16 17:32 Dose: 100 mg Ergocalciferol (Drisdol 50,000 Intl Units Cap) 1 cap PO Q7D [facility] Last Admin: 11/04/16 10:44 Dose: 1 cap Hydrochlorothiazide (Microzide) 12.5 mg PO DAILY [facility] Last Admin: 11/07/16 10:46 Dose: 12.5 mg Cefepime HCl (Maxipime 2gm) 2 gm in 100 mls @ 100 mls/hr IVPB Q8 [facility] PRN Reason: Protocol Stop: 11/12/16 14:01 Last Admin: 11/07/16 13:38 Dose: 100 mls/hr Insulin Detemir (Levemir) 10 unit SC DAILY [facility] Last Admin: 11/07/16 11:00 Dose: Not Given Insulin Human Regular (Humulin R Med) 0 units SC ACHS [facility] PRN Reason: Protocol Last Admin: 11/07/16 16:40 Dose: Not Given Losartan Potassium (Cozaar) 50 mg PO DAILY [facility] Last Admin: 11/07/16 10:44 Dose: 50 mg Montelukast Sodium (Singulair) 10 mg PO HS [facility] Last Admin: 11/06/16 22:54 Dose: 10 mg Oxycodone/Acetaminophen (Percocet 5/325 Mg Tab) 1 tab PO Q4H PRN PRN Reason: Pain, severe (8-10) Stop: 11/10/16 09:02 Last Admin: 11/07/16 09:37 Dose: 1 tab Pantoprazole Sodium (Protonix Ec Tab) 40 mg PO 0600 [facility] - Labs Labs: 11/07/16 06:15 11/07/16 06:15 PT 10.7 Seconds (9.9-11.8) 11/03/16 22:36 INR 0.99 (0.93-1.08) 11/03/16 22:36 APTT 32.4 Seconds (23.7-30.8) H 11/03/16 22:36 Attending/Attestation - Attestation I have personally seen and examined this patient.: Yes I have fully participated in the care of the patient.: Yes I have reviewed all pertinent clinical information, including history, physical exam and plan: Yes Notes (Text): 11/07/16 18:17 Patient was seen and examined with manager medical device. Agreed with resident assessment and plan. Management plan was discussed in detail with patient Education was provided.
[2016-11-05] MEDS: Insulin Detemir 100 units/ml Vial (Levemir) SC SCH (12:35)
--- NOTE | 2016-11-05 12:48 | CON ---
DATE: HISTORY OF PRESENT ILLNESS: An 81-year-old female seen at bedside for consultation, evaluation and management of diabetic ulceration on the right foot with gangrene of the right third toe. The patient states she injured herself while in the [place] approximately 1 month ago and developed a blister formation, which became an infection. The [facility] doctor drained the blister and put her on p.o. antibiotics; however, she did not get better and she returned home for medical treatment. 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 PAST SURGICAL HISTORY: The patient denies any past surgical history. ALLERGIES: THE PATIENT HAS NO KNOWN DRUG ALLERGIES. SOCIAL HISTORY: The patient never smoked. Denies illicit drug use. Denies tobacco use. She lives with family. FAMILY HISTORY: Remarkable for diabetes on the mother side. MEDICATIONS: All medications are noted in MAR. OBJECTIVE: EXTREMITIES: Nonpalpable pedal pulses noted bilaterally. The patient is unable to detect 5.07 g monofilament wire testing bilaterally. Capillary filling time is delayed x9 and nonexistent on right third digit at this point. There is a full thickness ulceration on the dorsal aspect of the right foot at the third metatarsophalangeal joint region. Ulceration measures approximately 2.5 x 3.5 x 0.2 cm. The base of the ulcer is a mixture of primarily fibrotic with some granulation tissue. There is noted to be no active bleeding. There is no purulence to suggest underlying abscess formation. There is no problem to bone. The right third digit presents with gangrenous changes with impending gangrene present. There is pain upon palpation. VITAL SIGNS: Presented temperature of 98.4, pulse rate of 61, blood pressure 124/60, and respiratory rate of 20. LABORATORY DATA: Findings reveal white count of 7.7, down from 15.9 yesterday. Hemoglobin 8, hematocrit 24.6, platelet count of 266. ESR is elevated at 70. Most recent culture taken on the right foot ulceration which was yesterday reveals gram negative rods and no polymorphonuclear white blood cells. X-ray findings reveal no radiographic evidence of osteomyelitis at the right third digit. 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 X-rays have been inconclusive for osteomyelitis. PLAN: The patient was examined. The patient is in need of vascular consult to ascertain lower extremity perfusion. We will order arterial and venous Dopplers for Dr. Martinez to evaluate on Monday. We will order MRI to rule out osteomyelitis of the right third digit. The wound was cleansed with normal sterile saline. We will place Silvadene and a dry sterile dressing. I spoke with patient's certified nurse aide and told her that we will need the order vascular studies before any amputation can be performed and she was informed that in all likelihood the right third toe will have to be amputated as it is nonviable at this point. She was told that it is important to have vascular evaluation as vascular intervention may be needed, pending arterial studies. Dr. Carlos's note was read and appreciated. We will continue with vancomycin and cefepime IV. She will be seen in follow up daily with plans for amputation sometimes early next week pending vascular clearance. Marquez Garrido DPM
[2016-11-05] MEDS: Oxycodone/Acetaminophen 5/325 mg Tab PO PRN ×2 (13:58→21:22)
--- NOTE | 2016-11-05 18:13 | CP.PCM.PN ---
Subjective - Date & Time of Evaluation Date of Evaluation: 11/05/16 Time of Evaluation: 12:25 - Subjective Subjective: Comfortable in bed, not in distress, afebrile, less pain in the foot. Objective - Vital Signs/Intake and Output Vital Signs (last 24 hours): Temp Pulse Resp BP Pulse Ox 99.7 F H 80 20 163/76 H 98 11/04/16 16:00 11/04/16 17:32 11/04/16 16:00 11/04/16 17:32 11/04/16 16:00 Intake and Output: 11/04/16 11/05/16 18:59 06:59 Intake Total 480 Balance 480 - Medications Medications: Current Medications Acetaminophen (Tylenol 325mg Tab) 650 mg PO Q6H PRN PRN Reason: Fever >100.4 F Aspirin (Aspirin Chewable) 81 mg PO DAILY [facility] Last Admin: 11/04/16 10:42 Dose: 81 mg Atorvastatin Calcium (Lipitor) 10 mg PO DIN [facility] Last Admin: 11/04/16 17:32 Dose: 10 mg Carvedilol (Coreg) 6.25 mg PO BID [facility] Last Admin: 11/04/16 17:32 Dose: 6.25 mg Docusate Sodium (Colace) 100 mg PO BID [facility] Last Admin: 11/04/16 17:32 Dose: 100 mg Ergocalciferol (Drisdol 50,000 Intl Units Cap) 1 cap PO Q7D [facility] Last Admin: 11/04/16 10:44 Dose: 1 cap Hydrochlorothiazide (Microzide) 12.5 mg PO DAILY [facility] Last Admin: 11/04/16 10:43 Dose: 12.5 mg Vancomycin HCl (Vancomycin 1gm) 1 gm in 250 mls @ 167 mls/hr IVPB Q12 [facility] PRN Reason: Protocol Last Admin: 11/04/16 10:42 Dose: 167 mls/hr Cefepime HCl (Maxipime 1gm) 1 gm in 100 mls @ 100 mls/hr IVPB Q8 [facility] PRN Reason: Protocol Stop: 11/11/16 14:01 Last Admin: 11/04/16 14:20 Dose: 100 mls/hr Insulin Detemir (Levemir) 20 unit SC DAILY [facility] Last Admin: 11/04/16 14:20 Dose: Not Given Insulin Human Regular (Humulin R Med) 0 units SC [facility] PRN Reason: Protocol Last Admin: 11/04/16 17:33 Dose: Not Given Losartan Potassium (Cozaar) 50 mg PO DAILY [facility] Last Admin: 11/04/16 10:42 Dose: 50 mg Montelukast Sodium (Singulair) 10 mg PO HS [facility] Oxycodone/Acetaminophen (Percocet 5/325 Mg Tab) 1 tab PO Q4H [facility]N PRN Reason: Pain, moderate (4-7) Stop: 11/07/16 04:19 Last Admin: 11/04/16 04:32 Dose: 1 tab - Labs Labs: 11/04/16 11:00 11/04/16 11:00 PT 10.7 Seconds (9.9-11.8) 11/03/16 22:36 INR 0.99 (0.93-1.08) 11/03/16 22:36 APTT 32.4 Seconds (23.7-30.8) H 11/03/16 22:36 - Constitutional Appears: Non-toxic, No Acute Distress - Head Exam Head Exam: NORMAL INSPECTION - Neck Exam Neck Exam: absent: Meningismus - Respiratory Exam Respiratory Exam: Decreased Breath Sounds - Cardiovascular Exam Cardiovascular Exam: +S1, +S2 - GI/Abdominal Exam GI & Abdominal Exam: Soft. absent: Tenderness - Extremities Exam Additional comments: right foot with dressings in place Assessment and Plan - Assessment and Plan (Free Text) Plan: Assessment Consider infected right foot ulcer with cellulitis with gram negative bacilli, R /O peripheral arterial disease R/O osteomyelitis HTN dyslipidemia DM history of CVA asthma history of left foot ulcer and infection Plan continue Vancomycin and Cefepime day 2 pending identification and sensitivities of the gram negative bacilli in the wound cx; ESR and CRP are both elevated foot xray does not show osteomyelitis - follow up MRI results follow up doppler U/S to rule out peripheral vascular disease
[2016-11-06] MEDS: Cefepime 1gm in NS 100ml 1 GM/100 ML BAG IVPB SCH ×3 (06:14→22:54)
[2016-11-06 07:00] LABS: HEMATOCRIT 29.6 % (36.0-48.0); MEAN CELL VOLUME 81.5 fl (80.0-105.0); MEAN CORPUSCULAR HEMOGLOBIN 25.9 pg (25.0-35.0); MEAN CORPUSCULAR HGB CONC 31.8 g/dl (31.0-37.0); MEAN PLATELET VOLUME 9.6 fl (7.0-11.0); RED CELL DISTRIBUTION WIDTH 14.1 % (11.5-14.5); WHITE BLOOD COUNT 8.7 10^3/ul (4.5-11.0)
[2016-11-06 07:05] LABS: ALB/GLOB RATIO 0.9 (1.1-1.8); ALKALINE PHOSPHATASE 87 U/L (38-126); ALT/SGPT 29 U/L (7-56); AST/SGOT 27 U/L (14-36); BILIRUBIN,TOTAL 0.4 mg/dL (0.2-1.3); BLOOD UREA NITROGEN 23 mg/dL (7-21); CALCIUM 9.2 mg/dL (8.4-10.5); CARBON DIOXIDE 26 mmol/L (21-33); CHLORIDE 105 mmol/L (98-107); GFR AFRICAN-AMERICAN > 60; GLUCOSE,RANDOM 68 mg/dL (70-110); POTASSIUM 3.7 mmol/L (3.6-5.0); SODIUM 139 mmol/L (132-148); TOTAL PROTEIN 6.5 g/dL (5.8-8.3)
[2016-11-06] MEDS: Insulin Reg-MEDIUM-Coverage SC SCH ×4 (08:13→23:39)
[2016-11-06] MEDS: Insulin Detemir 100 units/ml Vial (Levemir) SC SCH (09:27)
[2016-11-06] MEDS: Vancomycin 1gm in NS 250ml 1 GM/250 ML BAG IVPB SCH (09:30)
--- NOTE | 2016-11-06 12:54 | MRI ---
PROCEDURE: MRI of the right foot without contrast HISTORY: diabetic foot ucler with gangrene of 3rd toe COMPARISON: TECHNIQUE: The study was extremely limited due to inability of the patient to cooperate. Only sagittal fat-suppressed T2 images were obtained. There is motion artifact. FINDINGS: There is increased signal intensity in the bone marrow of the toes which is probably artifactual. There is no metatarsal marrow edema. IMPRESSION: Nondiagnostic study
--- NOTE | 2016-11-06 13:07 | CP.PCM.PN ---
<Kimberly Patterson - Last Filed: 11/06/16 13:00> Subjective - Date & Time of Evaluation Date of Evaluation: 11/06/16 Time of Evaluation: 13:00 - Subjective Subjective: Podiatry Progress note for Dr. Arevalo 81 y/o female seen at bedside with her son-in law for 3rd gangrenous digit and a dailey grade 1 ulcer on the dorsum of the right foot. Patient is AAOx3 and is in NAD. Patient denies of any acute overnight events. Patient denies of any pain in her right foot. Patient denies of any F/N/V/C/SOB/CP today. Patient denies of any other pedal complains at this time. Objective - Vital Signs/Intake and Output Vital Signs (last 24 hours): Temp Pulse Resp BP Pulse Ox 97.9 F 71 20 160/85 H 100 11/06/16 07:35 11/06/16 09:29 11/06/16 07:35 11/06/16 09:29 11/06/16 07:35 Intake and Output: 11/06/16 11/06/16 06:59 18:59 Intake Total 480 Balance 480 - Medications Medications: Current Medications Acetaminophen (Tylenol 325mg Tab) 650 mg PO Q6H PRN PRN Reason: Fever >100.4 F Last Admin: 11/04/16 20:52 Dose: 650 mg Aspirin (Aspirin Chewable) 81 mg PO DAILY [facility] Last Admin: 11/06/16 09:29 Dose: 81 mg Atorvastatin Calcium (Lipitor) 10 mg PO DIN [facility] Last Admin: 11/05/16 17:54 Dose: 10 mg Carvedilol (Coreg) 6.25 mg PO BID [facility] Last Admin: 11/06/16 09:29 Dose: 6.25 mg Docusate Sodium (Colace) 100 mg PO BID [facility] Last Admin: 11/06/16 09:27 Dose: 100 mg Ergocalciferol (Drisdol 50,000 Intl Units Cap) 1 cap PO Q7D [facility] Last Admin: 11/04/16 10:44 Dose: 1 cap Hydrochlorothiazide (Microzide) 12.5 mg PO DAILY [facility] Last Admin: 11/06/16 09:30 Dose: 12.5 mg Vancomycin HCl (Vancomycin 1gm) 1 gm in 250 mls @ 167 mls/hr IVPB Q12 [facility] PRN Reason: Protocol Last Admin: 11/06/16 09:30 Dose: 167 mls/hr Cefepime HCl (Maxipime 1gm) 1 gm in 100 mls @ 100 mls/hr IVPB Q8 [facility] PRN Reason: Protocol Stop: 11/11/16 14:01 Last Admin: 11/06/16 06:14 Dose: 100 mls/hr Insulin Detemir (Levemir) 10 unit SC DAILY [facility] Last Admin: 11/06/16 09:27 Dose: Not Given Insulin Human Regular (Humulin R Med) 0 units SC ACHS [facility] PRN Reason: Protocol Last Admin: 11/06/16 12:00 Dose: 7 units Losartan Potassium (Cozaar) 50 mg PO DAILY [facility] Last Admin: 11/06/16 09:29 Dose: 50 mg Montelukast Sodium (Singulair) 10 mg PO HS [facility] Last Admin: 11/05/16 21:17 Dose: 10 mg Oxycodone/Acetaminophen (Percocet 5/325 Mg Tab) 1 tab PO Q4H PRN PRN Reason: Pain, moderate (4-7) Stop: 11/07/16 04:19 Last Admin: 11/05/16 21:22 Dose: 1 tab - Labs Labs: 11/06/16 06:40 11/06/16 06:40 PT 10.7 Seconds (9.9-11.8) 11/03/16 22:36 INR 0.99 (0.93-1.08) 11/03/16 22:36 APTT 32.4 Seconds (23.7-30.8) H 11/03/16 22:36 - Constitutional Appears: Well, Non-toxic, No Acute Distress - Extremities Exam Additional comments: Bilateral LE exam: VASC: DP/PT pulses are non-palpable bilaterally, [employer]: > 3 sec to all digits, Temp gradient: cool to cool from proximal to distal, no pitting or non-pitting edema noted bilaterally DERM: hyperpigmented and necrotic 3rd digit with dorsum of the right forefoot wound, wound bed appears to have approximately 75% fibrosis and 25% granular base, no periwound erythema, no purulent drainage or active bleeding, no probe to bone, no ascending cellulitis, no undermining or tunneling, no clinical suspicion of active infection NEURO: Protective sensation grossly diminished ORTHO: no pain on palpation of the 3rd digit on the right foot - Neurological Exam Neurological Exam: Alert, Awake, Oriented x3 - Psychiatric Exam Psychiatric exam: Normal Affect, Normal Mood Assessment and Plan - Assessment and Plan (Free Text) Assessment: 81 y/o female seen at bedside for 1). gangrenous 3rd digit on the right foot 2) . open wound dailey grade 1 Plan: Patient evaluated and charts reviewed Labs and vitals reviewed (afebrile; WBC @ 8.7 today) Dressing changed using tefla, DSD Vascular consult placed by Dr. Garrido MRI ordered by Dr. Garrido Patient to remain on IV abx Podiatry to follow patient while patient is in house <Clementine Arevalo - Last Filed: 11/11/16 16:24> Objective - Vital Signs/Intake and Output Vital Signs (last 24 hours): Temp Pulse Resp BP Pulse Ox 97.1 F L 66 18 117/86 100 11/11/16 07:00 11/11/16 11:08 11/11/16 07:00 11/11/16 11:08 11/11/16 07:00 Intake and Output: 11/11/16 11/11/16 06:59 18:59 Intake Total 240 Output Total 600 Balance -360 - Medications Medications: Current Medications Acetaminophen (Tylenol 325mg Tab) 650 mg PO Q6H PRN PRN Reason: Fever >100.4 F Last Admin: 11/11/16 07:05 Dose: 650 mg Aspirin (Aspirin Chewable) 81 mg PO DAILY [facility] Last Admin: 11/11/16 11:07 Dose: 81 mg Atorvastatin Calcium (Lipitor) 10 mg PO DIN [facility] Last Admin: 11/10/16 17:01 Dose: Not Given Carvedilol (Coreg) 6.25 mg PO BID [facility] Last Admin: 11/11/16 11:08 Dose: 6.25 mg Docusate Sodium (Colace) 100 mg PO BID [facility] Last Admin: 11/11/16 11:07 Dose: 100 mg Ergocalciferol (Drisdol 50,000 Intl Units Cap) 1 cap PO Q7D [facility] Last Admin: 11/11/16 11:10 Dose: 1 cap Hydrochlorothiazide (Microzide) 12.5 mg PO DAILY [facility] Last Admin: 11/11/16 11:08 Dose: 12.5 mg Cefepime HCl (Maxipime 2gm) 2 gm in 100 mls @ 100 mls/hr IVPB Q8 [facility] PRN Reason: Protocol Stop: 11/12/16 14:01 Last Admin: 11/11/16 13:03 Dose: 100 mls/hr Insulin Detemir (Levemir) 10 unit SC DAILY [facility] Last Admin: 11/11/16 11:11 Dose: Not Given Insulin Human Regular (Humulin R Med) 0 units SC ACHS [facility] PRN Reason: Protocol Last Admin: 11/11/16 12:03 Dose: Not Given Losartan Potassium (Cozaar) 50 mg PO DAILY [facility] Last Admin: 11/11/16 11:07 Dose: 50 mg Montelukast Sodium (Singulair) 10 mg PO HS [facility] Last Admin: 11/10/16 22:12 Dose: 10 mg Pantoprazole Sodium (Protonix Ec Tab) 40 mg PO 0600 [facility] Last Admin: 11/11/16 06:57 Dose: 40 mg - Labs Labs: 11/11/16 08:35 11/11/16 08:35 PT 10.7 Seconds (9.9-11.8) 11/03/16 22:36 INR 0.99 (0.93-1.08) 11/03/16 22:36 APTT 32.4 Seconds (23.7-30.8) H 11/03/16 22:36 Attending/Attestation - Attestation I have personally seen and examined this patient.: Yes I have fully participated in the care of the patient.: Yes I have reviewed all pertinent clinical information, including history, physical exam and plan: Yes
--- NOTE | 2016-11-06 13:47 | CP.PCM.PN ---
<Adalid Lew - Last Filed: 11/06/16 13:59> Subjective - Date & Time of Evaluation Date of Evaluation: 11/06/16 Time of Evaluation: 11:11 - Subjective Subjective: Patient was seen and examined at bedside. No acute events occurred overnight. The patient reports feeling better with less foot pain. The patient denies any chest pain, shortness of breath, nausea, vomiting, lightheadedness, dizziness, dysuria, or any other complaints. Objective - Vital Signs/Intake and Output Vital Signs (last 24 hours): Temp Pulse Resp BP Pulse Ox 97.9 F 71 20 160/85 H 100 11/06/16 07:35 11/06/16 09:29 11/06/16 07:35 11/06/16 09:29 11/06/16 07:35 Intake and Output: 11/06/16 11/06/16 06:59 18:59 Intake Total 480 Balance 480 - Medications Medications: Current Medications Acetaminophen (Tylenol 325mg Tab) 650 mg PO Q6H PRN PRN Reason: Fever >100.4 F Last Admin: 11/04/16 20:52 Dose: 650 mg Aspirin (Aspirin Chewable) 81 mg PO DAILY [facility] Last Admin: 11/06/16 09:29 Dose: 81 mg Atorvastatin Calcium (Lipitor) 10 mg PO DIN [facility] Last Admin: 11/05/16 17:54 Dose: 10 mg Carvedilol (Coreg) 6.25 mg PO BID [facility] Last Admin: 11/06/16 09:29 Dose: 6.25 mg Docusate Sodium (Colace) 100 mg PO BID [facility] Last Admin: 11/06/16 09:27 Dose: 100 mg Ergocalciferol (Drisdol 50,000 Intl Units Cap) 1 cap PO Q7D [facility] Last Admin: 11/04/16 10:44 Dose: 1 cap Hydrochlorothiazide (Microzide) 12.5 mg PO DAILY [facility] Last Admin: 11/06/16 09:30 Dose: 12.5 mg Vancomycin HCl (Vancomycin 1gm) 1 gm in 250 mls @ 167 mls/hr IVPB Q12 [facility] PRN Reason: Protocol Last Admin: 11/06/16 09:30 Dose: 167 mls/hr Cefepime HCl (Maxipime 1gm) 1 gm in 100 mls @ 100 mls/hr IVPB Q8 [facility] PRN Reason: Protocol Stop: 11/11/16 14:01 Last Admin: 11/06/16 13:39 Dose: 100 mls/hr Insulin Detemir (Levemir) 10 unit SC DAILY [facility] Last Admin: 11/06/16 09:27 Dose: Not Given Insulin Human Regular (Humulin R Med) 0 units SC ACHS [facility] PRN Reason: Protocol Last Admin: 11/06/16 12:00 Dose: 7 units Losartan Potassium (Cozaar) 50 mg PO DAILY [facility] Last Admin: 11/06/16 09:29 Dose: 50 mg Montelukast Sodium (Singulair) 10 mg PO HS [facility] Last Admin: 11/05/16 21:17 Dose: 10 mg Oxycodone/Acetaminophen (Percocet 5/325 Mg Tab) 1 tab PO Q4H PRN PRN Reason: Pain, moderate (4-7) Stop: 11/07/16 04:19 Last Admin: 11/05/16 21:22 Dose: 1 tab - Labs Labs: 11/06/16 06:40 11/06/16 06:40 PT 10.7 Seconds (9.9-11.8) 11/03/16 22:36 INR 0.99 (0.93-1.08) 11/03/16 22:36 APTT 32.4 Seconds (23.7-30.8) H 11/03/16 22:36 - Head Exam Head Exam: ATRAUMATIC, NORMAL INSPECTION, NORMOCEPHALIC - Eye Exam Eye Exam: EOMI, Normal appearance, PERRL Pupil Exam: NORMAL ACCOMODATION, PERRL. absent: Irregular, Miosis - ENT Exam ENT Exam: Mucous Membranes Moist - Neck Exam Neck Exam: Full ROM, Normal Inspection - Respiratory Exam Respiratory Exam: Clear to Ausculation Bilateral, NORMAL BREATHING PATTERN. absent: Decreased Breath Sounds, Rales, Rhonchi - Cardiovascular Exam Cardiovascular Exam: REGULAR RHYTHM, RRR, +S1, +S2. absent: Gallop, Rubs - GI/Abdominal Exam GI & Abdominal Exam: Soft, Normal Bowel Sounds. absent: Rigid, Tenderness - Extremities Exam Additional comments: right dosrum foot ulcer and 3rd toe that is gangrenous - Back Exam Back Exam: NORMAL INSPECTION. absent: paraspinal tenderness - Neurological Exam Neurological Exam: Alert, Awake, CN II-XII Intact, Oriented x3 - Psychiatric Exam Psychiatric exam: Normal Affect, Normal Mood - Skin Skin Exam: Dry Additional comments: Ulcers on the feet Assessment and Plan - Assessment and Plan (Free Text) Assessment: 81F with PMH IDDM, HTN, HLD, CVA, presents for right 3rd toe discoloration, right distal foot ulcer, uncontrolled HTN, hyperglycemia. Plan: Right distal foot ulcer near right 3rd toe/necrotic R 3rd toe: -Foot Xray: Showed soft tissue swelling w/o acute articular/osseous abnormality , and no signs of osteomyelitis. - Received Vanco 1 gm IVx1, and Unasyn 3 gm IV x1, in ED -Vacular consult ordered (Dr. Garrido) - Podiatry recs appreciated. - MRI ordered and pending. - Blood final results pending. Wound culture grew gram negative Bacilli. - Continue Vacomycin and Cefepime Hypertension: - C/w home meds carvedilol and losartan/hctz IDDM: - BS 341 in ED, received 6 units of SQ regular insulin. - hold home oral antidiabetics -Blood sugar 346 today. - c.w home levemir and on ISS. Hx of HLD: - c/w lovastatin Hx of asthma: -c/w singulair DVT ppx: SCDs GI ppx: protonix <Rangasamy,Ajantha - Last Filed: 11/07/16 15:08> Objective - Vital Signs/Intake and Output Vital Signs (last 24 hours): Temp Pulse Resp BP Pulse Ox 98.5 F 68 18 153/67 H 97 11/07/16 07:30 11/07/16 10:45 11/07/16 07:30 11/07/16 10:45 11/07/16 07:30 Intake and Output: 11/07/16 11/07/16 06:59 18:59 Intake Total 660 420 Output Total 200 Balance 460 420 - Medications Medications: Current Medications Acetaminophen (Tylenol 325mg Tab) 650 mg PO Q6H PRN PRN Reason: Fever >100.4 F Last Admin: 11/07/16 07:04 Dose: 650 mg Aspirin (Aspirin Chewable) 81 mg PO DAILY [facility] Last Admin: 11/07/16 10:44 Dose: 81 mg Atorvastatin Calcium (Lipitor) 10 mg PO DIN [facility] Last Admin: 11/06/16 16:55 Dose: 10 mg Carvedilol (Coreg) 6.25 mg PO BID [facility] Last Admin: 11/07/16 10:45 Dose: 6.25 mg Docusate Sodium (Colace) 100 mg PO BID [facility] Last Admin: 11/07/16 10:46 Dose: 100 mg Ergocalciferol (Drisdol 50,000 Intl Units Cap) 1 cap PO Q7D [facility] Last Admin: 11/04/16 10:44 Dose: 1 cap Hydrochlorothiazide (Microzide) 12.5 mg PO DAILY [facility] Last Admin: 11/07/16 10:46 Dose: 12.5 mg Cefepime HCl (Maxipime 2gm) 2 gm in 100 mls @ 100 mls/hr IVPB Q8 [facility] PRN Reason: Protocol Stop: 11/12/16 14:01 Last Admin: 11/07/16 13:38 Dose: 100 mls/hr Insulin Detemir (Levemir) 10 unit SC DAILY [facility] Last Admin: 11/07/16 11:00 Dose: Not Given Insulin Human Regular (Humulin R Med) 0 units SC ACHS [facility] PRN Reason: Protocol Last Admin: 11/07/16 11:45 Dose: Not Given Losartan Potassium (Cozaar) 50 mg PO DAILY [facility] Last Admin: 11/07/16 10:44 Dose: 50 mg Montelukast Sodium (Singulair) 10 mg PO HS [facility] Last Admin: 11/06/16 22:54 Dose: 10 mg Oxycodone/Acetaminophen (Percocet 5/325 Mg Tab) 1 tab PO Q4H PRN PRN Reason: Pain, severe (8-10) Stop: 11/10/16 09:02 Last Admin: 11/07/16 09:37 Dose: 1 tab - Labs Labs: 11/07/16 06:15 11/07/16 06:15 PT 10.7 Seconds (9.9-11.8) 11/03/16 22:36 INR 0.99 (0.93-1.08) 11/03/16 22:36 APTT 32.4 Seconds (23.7-30.8) H 11/03/16 22:36 Attending/Attestation - Attestation I have personally seen and examined this patient.: Yes I have fully participated in the care of the patient.: Yes I have reviewed all pertinent clinical information, including history, physical exam and plan: Yes Notes (Text): 11/07/16 14:58 Attending note; Patient seen and examined with resident. Patient is a 81 year old Female with PMH; IDDM, HTN, HLD, CVA, presents for right 3rd toe discoloration, right distal foot ulcer, uncontrolled HTN, hyperglycemia. Continue local wound care by podiatry. Venous Doppler is negative for DVT. Arterial Doppler done. Results pending. We will get vascular surgery evaluation. Wound culture is positive for Pseudomonas .Continue IV cefepime. ID evaluation requested. Lower extremity MRI was inconclusive. Will discuss with podiatry. Anemia; chronic. Monitor hemoglobin. Diabetes; continue Levemir. Hypertension; continue Coreg and Cozaar. Upon discharge the patient will follow-up with PMD Dr. Rossi.
[2016-11-06] MEDS: Oxycodone/Acetaminophen 5/325 mg Tab PO PRN (19:03)
[2016-11-06] MEDS ORDERED: Dextrose 50% SYRINGE Inj (50 ml) IVP ONE (20:21)
[2016-11-07] MEDS: Vancomycin 1gm in NS 250ml 1 GM/250 ML BAG IVPB SCH ×2 (00:02→10:37)
[2016-11-07] MEDS ORDERED: Albuterol-Ipratrop 3 mg / 0.5 (3 ml) UD IH ONE (00:20)
[2016-11-07] MEDS: Cefepime 1gm in NS 100ml 1 GM/100 ML BAG IVPB SCH (05:38)
[2016-11-07 07:08] LABS: HEMATOCRIT 26.1 % (36.0-48.0); MEAN CELL VOLUME 81.1 fl (80.0-105.0); MEAN CORPUSCULAR HEMOGLOBIN 25.8 pg (25.0-35.0); MEAN CORPUSCULAR HGB CONC 31.8 g/dl (31.0-37.0); MEAN PLATELET VOLUME 9.6 fl (7.0-11.0); WHITE BLOOD COUNT 8.7 10^3/ul (4.5-11.0)
[2016-11-07 07:25] LABS: ALB/GLOB RATIO 0.8 (1.1-1.8); BILIRUBIN,TOTAL 0.3 mg/dL (0.2-1.3); CALCIUM 8.6 mg/dL (8.4-10.5); POTASSIUM 4.8 mmol/L (3.6-5.0); TOTAL PROTEIN 5.7 g/dL (5.8-8.3)
[2016-11-07] MEDS: Insulin Reg-MEDIUM-Coverage SC SCH ×5 (08:10→22:23)
[2016-11-07] MEDS: Oxycodone/Acetaminophen 5/325 mg Tab PO PRN (09:37)
--- NOTE | 2016-11-07 09:56 | US ---
PROCEDURE: Lower extremity JUNG exam HISTORY: Peripheral vascular disease with pain and claudication. Diabetes PHYSICIAN(S): Cj Martinez MD. FINDINGS: The right resting ABIs severely abnormal, 0.47. Eft resting JUNG is borderline normal, 0.91 The brachial systolic pressures are symmetric. The high thigh pressures are noncompressible. The right high thigh PVR waveform is moderately blunted. The left high thigh PVR waveform is normal. This likely represents right iliac occlusive disease. The left calf PVR waveform is normal and augments normally. The right calf PVR waveform does not augment. This could represent subtle right SFA occlusive disease. The ankle and metatarsal waveforms are moderately to severely blunted on the right. The left ankle PVR waveform is mildly blunted. IMPRESSION: 1. Severely abnormal right JUNG at rest. 2. Right iliac occlusive disease. 3. Bilateral tibial disease. 4. If clinically indicated, further evaluation can be obtained with a CTA runoff, MRA runoff, or conventional arteriogram.
[2016-11-07] MEDS: Insulin Detemir 100 units/ml Vial (Levemir) SC SCH (11:00)
[2016-11-07] MEDS: Cefepime IV 2 gm in NS 2 GM/100 ML BAG IVPB SCH ×2 (13:38→21:41)
--- NOTE | 2016-11-07 14:09 | CP.PCM.PN ---
Subjective - Date & Time of Evaluation Date of Evaluation: 11/07/16 Time of Evaluation: 12:05 - Subjective Subjective: Comfortable, not in distress, afebrile, occasional pain in the right foot. Objective - Vital Signs/Intake and Output Vital Signs (last 24 hours): Temp Pulse Resp BP Pulse Ox 98.5 F 68 18 153/67 H 97 11/07/16 07:30 11/07/16 10:45 11/07/16 07:30 11/07/16 10:45 11/07/16 07:30 Intake and Output: 11/07/16 11/07/16 06:59 18:59 Intake Total 660 180 Output Total 200 Balance 460 180 - Medications Medications: Current Medications Acetaminophen (Tylenol 325mg Tab) 650 mg PO Q6H PRN PRN Reason: Fever >100.4 F Last Admin: 11/07/16 07:04 Dose: 650 mg Aspirin (Aspirin Chewable) 81 mg PO DAILY [facility] Last Admin: 11/07/16 10:44 Dose: 81 mg Atorvastatin Calcium (Lipitor) 10 mg PO DIN [facility] Last Admin: 11/06/16 16:55 Dose: 10 mg Carvedilol (Coreg) 6.25 mg PO BID [facility] Last Admin: 11/07/16 10:45 Dose: 6.25 mg Docusate Sodium (Colace) 100 mg PO BID [facility] Last Admin: 11/07/16 10:46 Dose: 100 mg Ergocalciferol (Drisdol 50,000 Intl Units Cap) 1 cap PO Q7D [facility] Last Admin: 11/04/16 10:44 Dose: 1 cap Hydrochlorothiazide (Microzide) 12.5 mg PO DAILY [facility] Last Admin: 11/07/16 10:46 Dose: 12.5 mg Cefepime HCl (Maxipime 2gm) 2 gm in 100 mls @ 100 mls/hr IVPB Q8 [facility] PRN Reason: Protocol Stop: 11/12/16 14:01 Insulin Detemir (Levemir) 10 unit SC DAILY [facility] Last Admin: 11/06/16 09:27 Dose: Not Given Insulin Human Regular (Humulin R Med) 0 units SC ACHS [facility] PRN Reason: Protocol Last Admin: 11/07/16 08:20 Dose: Not Given Losartan Potassium (Cozaar) 50 mg PO DAILY [facility] Last Admin: 11/07/16 10:44 Dose: 50 mg Montelukast Sodium (Singulair) 10 mg PO HS [facility] Last Admin: 11/06/16 22:54 Dose: 10 mg Oxycodone/Acetaminophen (Percocet 5/325 Mg Tab) 1 tab PO Q4H PRN PRN Reason: Pain, severe (8-10) Stop: 11/10/16 09:02 Last Admin: 11/07/16 09:37 Dose: 1 tab - Labs Labs: 11/07/16 06:15 11/07/16 06:15 PT 10.7 Seconds (9.9-11.8) 11/03/16 22:36 INR 0.99 (0.93-1.08) 11/03/16 22:36 APTT 32.4 Seconds (23.7-30.8) H 11/03/16 22:36 - Constitutional Appears: Non-toxic, No Acute Distress - Head Exam Head Exam: NORMAL INSPECTION - ENT Exam ENT Exam: Mucous Membranes Moist - Neck Exam Neck Exam: absent: Lymphadenopathy, Meningismus - Respiratory Exam Respiratory Exam: Decreased Breath Sounds - Cardiovascular Exam Cardiovascular Exam: +S1, +S2 - GI/Abdominal Exam GI & Abdominal Exam: Soft. absent: Tenderness - Extremities Exam Additional comments: right foot with dressings in place Assessment and Plan - Assessment and Plan (Free Text) Plan: Assessment infected right foot ulcer with cellulitis with Pseudomonas with severe peripheral arterial disease; osteomyelitis could not be ruled out with MRI since patient was moving HTN dyslipidemia DM history of CVA asthma history of left foot ulcer and infection Plan continue Cefepime day 4; ESR and CRP are both elevated since MRI was not very helpful, should consider bone scan discussed with Dr. Asif - will call Dr. Martinez to see if revascularization can be done for the right leg
--- NOTE | 2016-11-07 16:28 | CP.PCM.PN ---
<Aldair Krishnamurthy - Last Filed: 11/08/16 10:01> Subjective - Date & Time of Evaluation Date of Evaluation: 11/07/16 Time of Evaluation: 15:00 - Subjective Subjective: Podiatry Progress Note - Dr. Arevalo 81 y/o female seen at bedside with attending Dr. Arevalo for 3rd gangrenous digit and a dailey grade 1 ulcer on the dorsum of the right foot. Patient is AAOx3 and is in NAD. Patient denies of any acute overnight events. Patient denies of any pain in her right foot. Patient denies of any F/N/V/C/SOB/CP today. No other pedal complaints at this time. Objective - Vital Signs/Intake and Output Vital Signs (last 24 hours): Temp Pulse Resp BP Pulse Ox 98.5 F 68 18 153/67 H 97 11/07/16 07:30 11/07/16 10:45 11/07/16 07:30 11/07/16 10:45 11/07/16 07:30 Intake and Output: 11/07/16 11/07/16 06:59 18:59 Intake Total 660 420 Output Total 200 Balance 460 420 - Medications Medications: Current Medications Acetaminophen (Tylenol 325mg Tab) 650 mg PO Q6H PRN PRN Reason: Fever >100.4 F Last Admin: 11/07/16 07:04 Dose: 650 mg Aspirin (Aspirin Chewable) [address] [facility] Last Admin: 11/07/16 10:44 Dose: 81 mg Atorvastatin Calcium (Lipitor) [address] [facility] Last Admin: 11/06/16 16:55 Dose: 10 mg Carvedilol (Coreg) 6.[address] [facility] Last Admin: 11/07/16 10:45 Dose: 6.25 mg Docusate Sodium (Colace) [address] [facility] Last Admin: 11/07/16 10:46 Dose: 100 mg Ergocalciferol (Drisdol 50,000 Intl Units Cap) [address] [facility] Last Admin: 11/04/16 10:44 Dose: 1 cap Hydrochlorothiazide (Microzide) 12.[address] [facility] Last Admin: 11/07/16 10:46 Dose: 12.5 mg Cefepime HCl (Maxipime 2gm) 2 gm in 100 mls @ 100 mls/hr IVPB Q8 [facility] PRN Reason: Protocol Stop: 11/12/16 14:01 Last Admin: 11/07/16 13:38 Dose: 100 mls/hr Iron Sucrose 200 mg/ Sodium (Chloride) 110 mls @ 110 mls/hr IVPB ONCE ONE Stop: 11/07/16 16:46 Insulin Detemir (Levemir) [address] [facility] Last Admin: 11/07/16 11:00 Dose: Not Given Insulin Human Regular (Humulin R Med) [address] [facility] PRN Reason: Protocol Last Admin: 11/07/16 11:45 Dose: Not Given Losartan Potassium (Cozaar) [address] [facility] Last Admin: 11/07/16 10:44 Dose: 50 mg Montelukast Sodium (Singulair) [address] [facility] Last Admin: 11/06/16 22:54 Dose: 10 mg Oxycodone/Acetaminophen (Percocet 5/325 Mg Tab) 1 tab PO Q4H PRN PRN Reason: Pain, severe (8-10) Stop: 11/10/16 09:02 Last Admin: 11/07/16 09:37 Dose: 1 tab Pantoprazole Sodium (Protonix Ec Tab) [address] [facility] - Labs Labs: 11/07/16 06:15 11/07/16 06:15 PT 10.7 Seconds (9.9-11.8) 11/03/16 22:36 INR 0.99 (0.93-1.08) 11/03/16 22:36 APTT 32.4 Seconds (23.7-30.8) H 11/03/16 22:36 - Constitutional Appears: Well, Non-toxic, No Acute Distress - Extremities Exam Additional comments: VASC: DP/PT pulses are non-palpable bilaterally, [employer]: > 3 sec to all digits, Temp gradient: cool to cool from proximal to distal, no pitting or non-pitting edema noted bilaterally DERM: hyperpigmented and necrotic 3rd digit with dorsum of the right forefoot wound, wound bed appears to have approximately 75% fibrosis and 25% granular base, no periwound erythema, minimal serosanguinous drainage, no active bleeding , no probe to bone, no ascending cellulitis, no undermining or tunneling, no clinical suspicion of active infection NEURO: Protective sensation grossly diminished ORTHO: no pain on palpation of the 3rd digit on the right foot - Neurological Exam Neurological Exam: Alert, Awake, Oriented x3 - Psychiatric Exam Psychiatric exam: Normal Affect, Normal Mood Assessment and Plan - Assessment and Plan (Free Text) Assessment: 81 y/o female seen at bedside for 1). gangrenous 3rd digit on the right foot 2) . open wound dailey grade 1 Plan: Patient seen and evaluated with attending, Dr. Arevalo Labs and vitals reviewed Dressing changed using tefla, DSD f/u Vascular consult f/u MRI results Patient to remain on IV abx Podiatry to follow patient while patient is in house <Clementine Arevalo - Last Filed: 11/11/16 16:28> Objective - Vital Signs/Intake and Output Vital Signs (last 24 hours): Temp Pulse Resp BP Pulse Ox 97.1 F L 66 18 117/86 100 11/11/16 07:00 11/11/16 11:08 11/11/16 07:00 11/11/16 11:08 11/11/16 07:00 Intake and Output: 11/11/16 11/11/16 06:59 18:59 Intake Total 240 Output Total 600 Balance -360 - Medications Medications: Current Medications Acetaminophen (Tylenol 325mg Tab) 650 mg PO Q6H PRN PRN Reason: Fever >100.4 F Last Admin: 11/11/16 07:05 Dose: 650 mg Aspirin (Aspirin Chewable) [address] [facility] Last Admin: 11/11/16 11:07 Dose: 81 mg Atorvastatin Calcium (Lipitor) [address] [facility] Last Admin: 11/10/16 17:01 Dose: Not Given Carvedilol (Coreg) 6.[address] [facility] Last Admin: 11/11/16 11:08 Dose: 6.25 mg Docusate Sodium (Colace) [address] [facility] Last Admin: 11/11/16 11:07 Dose: 100 mg Ergocalciferol (Drisdol 50,000 Intl Units Cap) [address] [facility] Last Admin: 11/11/16 11:10 Dose: 1 cap Hydrochlorothiazide (Microzide) 12.[address] [facility] Last Admin: 11/11/16 11:08 Dose: 12.5 mg Cefepime HCl (Maxipime 2gm) 2 gm in 100 mls @ 100 mls/hr IVPB Q8 [facility] PRN Reason: Protocol Stop: 11/12/16 14:01 Last Admin: 11/11/16 13:03 Dose: 100 mls/hr Insulin Detemir (Levemir) [address] [facility] Last Admin: 11/11/16 11:11 Dose: Not Given Insulin Human Regular (Humulin R Med) 0 units SC ACHS [facility] PRN Reason: Protocol Last Admin: 11/11/16 12:03 Dose: Not Given Losartan Potassium (Cozaar) [address] [facility] Last Admin: 11/11/16 11:07 Dose: 50 mg Montelukast Sodium (Singulair) [address] [facility] Last Admin: 11/10/16 22:12 Dose: 10 mg Pantoprazole Sodium (Protonix Ec Tab) [address] [facility] Last Admin: 11/11/16 06:57 Dose: 40 mg - Labs Labs: 11/11/16 08:35 11/11/16 08:35 PT 10.7 Seconds (9.9-11.8) 11/03/16 22:36 INR 0.99 (0.93-1.08) 11/03/16 22:36 APTT 32.4 Seconds (23.7-30.8) H 11/03/16 22:36 Attending/Attestation - Attestation I have personally seen and examined this patient.: Yes I have fully participated in the care of the patient.: Yes I have reviewed all pertinent clinical information, including history, physical exam and plan: Yes
--- NOTE | 2016-11-07 20:18 | CON ---
DATE: 11/07/2016 CHIEF COMPLAINT/HISTORY OF PRESENT ILLNESS: This is an 81-year-old female, who presents with gangrene of her right third digit. This began approximately one month ago with minor trauma and has become an open wound with pain and pete gangrene of the right third toe. She was treated briefly with oral antibiotics without improvement. I know Ms. Valdez from an arteriogram and intervention on the left lower extremity in 2013. She is a diabetic with hypertension and dyslipidemia. Her arteriogram in 2013 demonstrated significant tibial and infrainguinal disease. Her iliac arteries were patent at that time. Her current JUNG/PVR exam suggests right iliac disease. Certainly, there is also SFA and tibial disease on the right. I will obtain an MR angiogram to assess the right iliac system. We will tentatively schedule her for an arteriogram with an intervention on the right lower extremity if possible on . I discussed the situation to a industrial tech instructor with the patient and she understands. Cj Martinez MD MTDD
--- NOTE | 2016-11-07 21:34 | CP.PCM.PN ---
Addendum entered and electronically signed by Goyo Lepe DO 11/07/16 21:55: Plan: Iron Def. Anemia -Iron studies ordered Showed low Iron, TIBC, % Sat, and normal Ferritin Original Note: <Goyo Lepe - Last Filed: 11/07/16 21:43> Subjective - Date & Time of Evaluation Date of Evaluation: 11/07/16 Time of Evaluation: 08:00 - Subjective Subjective: Patient was seen and examined at bedside. No reported events overnight. The patient reports that her pain is manageable. Patient denies any chest pain, shortness of breath, nausea, vomiting, lightheadedness, dizziness, or any urinary symptoms. Objective - Vital Signs/Intake and Output Vital Signs (last 24 hours): Temp Pulse Resp BP Pulse Ox 98.1 F 60 18 143/70 94 L 11/07/16 16:00 11/07/16 17:32 11/07/16 16:00 11/07/16 17:32 11/07/16 16:00 Intake and Output: 11/07/16 11/08/16 18:59 06:59 Intake Total 420 Balance 420 - Medications Medications: Current Medications Acetaminophen (Tylenol 325mg Tab) 650 mg PO Q6H PRN PRN Reason: Fever >100.4 F Last Admin: 11/07/16 07:04 Dose: 650 mg Aspirin (Aspirin Chewable) 81 mg PO DAILY [facility] Last Admin: 11/07/16 10:44 Dose: 81 mg Atorvastatin Calcium (Lipitor) 10 mg PO DIN [facility] Last Admin: 11/07/16 17:31 Dose: 10 mg Carvedilol (Coreg) 6.25 mg PO BID [facility] Last Admin: 11/07/16 17:32 Dose: 6.25 mg Docusate Sodium (Colace) 100 mg PO BID [facility] Last Admin: 11/07/16 17:32 Dose: 100 mg Ergocalciferol (Drisdol 50,000 Intl Units Cap) 1 cap PO Q7D [facility] Last Admin: 11/04/16 10:44 Dose: 1 cap Hydrochlorothiazide (Microzide) 12.5 mg PO DAILY [facility] Last Admin: 11/07/16 10:46 Dose: 12.5 mg Cefepime HCl (Maxipime 2gm) 2 gm in 100 mls @ 100 mls/hr IVPB Q8 [facility] PRN Reason: Protocol Stop: 11/12/16 14:01 Last Admin: 11/07/16 13:38 Dose: 100 mls/hr Sodium Chloride (Sodium Chloride 0.45%) 1,000 mls @ 80 mls/hr IV .[id number] [facility] Stop: 11/11/16 12:00 Insulin Detemir (Levemir) 10 unit SC DAILY [facility] Last Admin: 11/07/16 11:00 Dose: Not Given Insulin Human Regular (Humulin R Med) 0 units SC ACHS [facility] PRN Reason: Protocol Last Admin: 11/07/16 16:40 Dose: Not Given Losartan Potassium (Cozaar) 50 mg PO DAILY [facility] Last Admin: 11/07/16 10:44 Dose: 50 mg Montelukast Sodium (Singulair) 10 mg PO HS [facility] Last Admin: 11/06/16 22:54 Dose: 10 mg Oxycodone/Acetaminophen (Percocet 5/325 Mg Tab) 1 tab PO Q4H PRN PRN Reason: Pain, severe (8-10) Stop: 11/10/16 09:02 Last Admin: 11/07/16 09:37 Dose: 1 tab Pantoprazole Sodium (Protonix Ec Tab) 40 mg PO 0600 [facility] - Labs Labs: 11/07/16 06:15 11/07/16 06:15 PT 10.7 Seconds (9.9-11.8) 11/03/16 22:36 INR 0.99 (0.93-1.08) 11/03/16 22:36 APTT 32.4 Seconds (23.7-30.8) H 11/03/16 22:36 - Constitutional Appears: Well, Non-toxic, No Acute Distress - Head Exam Head Exam: ATRAUMATIC, NORMAL INSPECTION, NORMOCEPHALIC - Eye Exam Eye Exam: Normal appearance - ENT Exam ENT Exam: Mucous Membranes Moist - Respiratory Exam Respiratory Exam: Clear to Ausculation Bilateral, NORMAL BREATHING PATTERN. absent: Rales, Rhonchi, Wheezes, Stridor - Cardiovascular Exam Cardiovascular Exam: RRR, +S1, +S2 - GI/Abdominal Exam GI & Abdominal Exam: Soft. absent: Tenderness - Extremities Exam Additional comments: Right distal foot ulcer proximal to right 3rd toe/necrotic R 3rd toe: - Neurological Exam Neurological Exam: Alert, Awake, Oriented x3 - Psychiatric Exam Psychiatric exam: Normal Affect, Normal Mood Assessment and Plan - Assessment and Plan (Free Text) Assessment: 81F with PMH IDDM, HTN, HLD, CVA, presents for right 3rd toe discoloration, right distal foot ulcer, uncontrolled HTN, hyperglycemia Plan: Right distal foot ulcer near right 3rd toe/necrotic R 3rd toe: -Foot Xray: Showed soft tissue swelling w/o acute articular/osseous abnormality , and no signs of osteomyelitis. - Received Vanco 1 gm IVx1, and Unasyn 3 gm IV x1, in ED -Vacular consult ordered - recs appreciated. - Podiatry recs appreciated. - MRI shows increased signal density in Bone marrow but likely artifact - Consider Bone Scan - Per Vascular (Dr. Martinez) MRA, tentative schedule for arteriogram w/ intervention on . -Blood culture shows no growth after 48 hours. Wound cultures show Pseudomonas A. - Continue Cefepime. Vanco Stopped. Hypertension: - C/w home meds carvedilol and losartan/hctz IDDM: - hold home oral antidiabetics - c.w home levemir and on ISS. -hold insulin for sugars > 400 Hx of HLD: - c/w lovastatin Hx of asthma: -c/w singulair DVT ppx: SCDs GI ppx: protonix Patient seen, reviewed, and discussed with Attending Goyo Lepe - PGY-1 <Hazel Asif - Last Filed: 11/08/16 14:23> Objective - Vital Signs/Intake and Output Vital Signs (last 24 hours): Temp Pulse Resp BP Pulse Ox 97.3 F L 66 18 159/67 H 96 11/08/16 07:17 11/08/16 09:37 11/08/16 07:17 11/08/16 09:37 11/08/16 07:17 Intake and Output: 11/08/16 11/08/16 06:59 18:59 Intake Total 580 440 Output Total 300 Balance 280 440 - Medications Medications: Current Medications Acetaminophen (Tylenol 325mg Tab) 650 mg PO Q6H PRN PRN Reason: Fever >100.4 F Last Admin: 11/07/16 07:04 Dose: 650 mg Aspirin (Aspirin Chewable) 81 mg PO DAILY [facility] Last Admin: 11/08/16 09:37 Dose: 81 mg Atorvastatin Calcium (Lipitor) 10 mg PO DIN [facility] Last Admin: 11/07/16 17:31 Dose: 10 mg Carvedilol (Coreg) 6.25 mg PO BID [facility] Last Admin: 11/08/16 09:37 Dose: 6.25 mg Docusate Sodium (Colace) 100 mg PO BID [facility] Last Admin: 11/08/16 09:36 Dose: 100 mg Ergocalciferol (Drisdol 50,000 Intl Units Cap) 1 cap PO Q7D [facility] Last Admin: 11/04/16 10:44 Dose: 1 cap Hydrochlorothiazide (Microzide) 12.5 mg PO DAILY [facility] Last Admin: 11/08/16 09:37 Dose: 12.5 mg Cefepime HCl (Maxipime 2gm) 2 gm in 100 mls @ 100 mls/hr IVPB Q8 [facility] PRN Reason: Protocol Stop: 11/12/16 14:01 Last Admin: 11/08/16 05:49 Dose: 100 mls/hr Sodium Chloride (Sodium Chloride 0.45%) 1,000 mls @ 80 mls/hr IV .[id number] [facility] Stop: 11/11/16 12:00 Iron Sucrose 200 mg/ Sodium (Chloride) 110 mls @ 110 mls/hr IVPB ONCE ONE Stop: 11/08/16 15:20 Insulin Detemir (Levemir) 10 unit SC DAILY [facility] Last Admin: 11/08/16 11:30 Dose: Not Given Insulin Human Regular (Humulin R Med) 0 units SC ACHS [facility] PRN Reason: Protocol Last Admin: 11/08/16 11:38 Dose: Not Given Losartan Potassium (Cozaar) 50 mg PO DAILY [facility] Last Admin: 11/08/16 09:35 Dose: 50 mg Montelukast Sodium (Singulair) 10 mg PO HS [facility] Last Admin: 11/07/16 22:23 Dose: 10 mg Oxycodone/Acetaminophen (Percocet 5/325 Mg Tab) 1 tab PO Q4H PRN PRN Reason: Pain, severe (8-10) Stop: 11/10/16 09:02 Last Admin: 11/08/16 00:02 Dose: 1 tab Pantoprazole Sodium (Protonix Ec Tab) 40 mg PO 0600 [facility] Last Admin: 11/08/16 05:49 Dose: 40 mg - Labs Labs: 11/07/16 06:15 11/07/16 06:15 PT 10.7 Seconds (9.9-11.8) 11/03/16 22:36 INR 0.99 (0.93-1.08) 11/03/16 22:36 APTT 32.4 Seconds (23.7-30.8) H 11/03/16 22:36 Attending/Attestation - Attestation I have personally seen and examined this patient.: Yes I have fully participated in the care of the patient.: Yes I have reviewed all pertinent clinical information, including history, physical exam and plan: Yes Notes (Text): 11/08/16 14:21 Attending note; Patient seen and examined with resident. Patient is a 81 year old Female with PMH; IDDM, HTN, HLD, CVA, presents for right 3rd toe discoloration, right distal foot ulcer, uncontrolled HTN, hyperglycemia. Continue local wound care by podiatry. Venous Doppler is negative for DVT. Arterial Doppler showed significant right iliac disease. Case discussed with vascular surgery Dr. Cj Martinez in detail. Wound culture is positive for Pseudomonas .Continue IV cefepime. ID evaluation Appreciated. Lower extremity MRI was inconclusive. bone scan ordered, Anemia; chronic. Monitor hemoglobin. iron deficiency anemia. Started on IV iron. stool for occult blood ordered. Diabetes; adjust Levemir. Hypertension; continue Coreg and Cozaar. Upon discharge the patient will follow-up with PMD Dr. Rossi. Will discuss with podiatry and vascular surgery for further plan.
[2016-11-08] MEDS: Oxycodone/Acetaminophen 5/325 mg Tab PO PRN ×2 (00:02→17:44)
[2016-11-08] MEDS: Pantoprazole 40 mg EC Tab PO SCH (05:49)
[2016-11-08] MEDS: Cefepime IV 2 gm in NS 2 GM/100 ML BAG IVPB SCH ×3 (05:49→22:52)
[2016-11-08] MEDS: Insulin Reg-MEDIUM-Coverage SC SCH ×4 (08:03→22:50)
[2016-11-08] MEDS: Insulin Detemir 100 units/ml Vial (Levemir) SC SCH (11:30)
[2016-11-08] MEDS ORDERED: Sodium Chloride 0.45% 1,000 ML IV SCH (12:00)
[2016-11-08] MEDS ORDERED: Gadodiamide 287 MG/ML VIAL (20ML) IV ONE (13:25)
--- NOTE | 2016-11-08 14:05 | CP.PCM.PN ---
<Goyo Lepe - Last Filed: 11/08/16 20:44> Subjective - Date & Time of Evaluation Date of Evaluation: 11/08/16 Time of Evaluation: 14:02 - Subjective Subjective: Patient has been seen and examined. No events reported overnight. She denies any CP, SOB, Palpitations, Fever, Chills, Abdominal pain, N/V/D, constipation. Objective - Vital Signs/Intake and Output Vital Signs (last 24 hours): Temp Pulse Resp BP Pulse Ox 97.3 F L 66 18 159/67 H 96 11/08/16 07:17 11/08/16 09:37 11/08/16 07:17 11/08/16 09:37 11/08/16 07:17 Intake and Output: 11/08/16 11/08/16 06:59 18:59 Intake Total 580 440 Output Total 300 Balance 280 440 - Medications Medications: Current Medications Acetaminophen (Tylenol 325mg Tab) 650 mg PO Q6H PRN PRN Reason: Fever >100.4 F Last Admin: 11/07/16 07:04 Dose: 650 mg Aspirin (Aspirin Chewable) 81 mg PO DAILY [facility] Last Admin: 11/08/16 09:37 Dose: 81 mg Atorvastatin Calcium (Lipitor) 10 mg PO DIN [facility] Last Admin: 11/07/16 17:31 Dose: 10 mg Carvedilol (Coreg) 6.25 mg PO BID [facility] Last Admin: 11/08/16 09:37 Dose: 6.25 mg Docusate Sodium (Colace) 100 mg PO BID [facility] Last Admin: 11/08/16 09:36 Dose: 100 mg Ergocalciferol (Drisdol 50,000 Intl Units Cap) 1 cap PO Q7D [facility] Last Admin: 11/04/16 10:44 Dose: 1 cap Hydrochlorothiazide (Microzide) 12.5 mg PO DAILY [facility] Last Admin: 11/08/16 09:37 Dose: 12.5 mg Cefepime HCl (Maxipime 2gm) 2 gm in 100 mls @ 100 mls/hr IVPB Q8 [facility] PRN Reason: Protocol Stop: 11/12/16 14:01 Last Admin: 11/08/16 05:49 Dose: 100 mls/hr Sodium Chloride (Sodium Chloride 0.45%) 1,000 mls @ 80 mls/hr IV .[id number] [facility] Stop: 11/11/16 12:00 Insulin Detemir (Levemir) 10 unit SC DAILY [facility] Last Admin: 11/08/16 11:30 Dose: Not Given Insulin Human Regular (Humulin R Med) 0 units SC ACHS [facility] PRN Reason: Protocol Last Admin: 11/08/16 11:38 Dose: Not Given Losartan Potassium (Cozaar) 50 mg PO DAILY [facility] Last Admin: 11/08/16 09:35 Dose: 50 mg Montelukast Sodium (Singulair) 10 mg PO HS [facility] Last Admin: 11/07/16 22:23 Dose: 10 mg Oxycodone/Acetaminophen (Percocet 5/325 Mg Tab) 1 tab PO Q4H PRN PRN Reason: Pain, severe (8-10) Stop: 11/10/16 09:02 Last Admin: 11/08/16 00:02 Dose: 1 tab Pantoprazole Sodium (Protonix Ec Tab) 40 mg PO 0600 [facility] Last Admin: 11/08/16 05:49 Dose: 40 mg - Labs Labs: 11/07/16 06:15 11/07/16 06:15 PT 10.7 Seconds (9.9-11.8) 11/03/16 22:36 INR 0.99 (0.93-1.08) 11/03/16 22:36 APTT 32.4 Seconds (23.7-30.8) H 11/03/16 22:36 - Constitutional Appears: Well, Non-toxic, No Acute Distress - Head Exam Head Exam: ATRAUMATIC, NORMAL INSPECTION, NORMOCEPHALIC - Eye Exam Eye Exam: Normal appearance - Respiratory Exam Respiratory Exam: Clear to Ausculation Bilateral, Wheezes. absent: Rales, Rhonchi - Cardiovascular Exam Cardiovascular Exam: +S1, +S2. absent: Murmur - GI/Abdominal Exam GI & Abdominal Exam: Soft, Tenderness, Normal Bowel Sounds - Psychiatric Exam Psychiatric exam: Normal Affect, Normal Mood - Skin Additional comments: Hyperpigmented and necrotic 3rd digit with dorsum of the right forefoot wounded. Assessment and Plan - Assessment and Plan (Free Text) Assessment: 81F with PMH IDDM, HTN, HLD, CVA, presents for right 3rd toe discoloration, right distal foot ulcer, uncontrolled HTN, hyperglycemia Plan: Right distal foot ulcer near right 3rd toe/necrotic R 3rd toe: -Foot Xray: Showed soft tissue swelling w/o acute articular/osseous abnormality , and no signs of osteomyelitis. -Vacular consult ordered (Dr. Martinez) - recs appreciated. - Podiatry recs appreciated. - MRI shows increased signal density in Bone marrow but likely artifact - Bone scan reads positive three way bone scan - MRA read No evidence of iliac stenosis or occlusion. Focal stenosis in right proximal and distal SFA. Occluded anterior tibial. Single vessel runoff to left ankle via the peroneal. Anterior and posterior tibial arteries are occluded -tentative schedule for arteriogram w/ intervention on . -Blood culture shows no growth after 4 days. Wound cultures show Pseudomonas A. - Continue Cefepime. Anemia of Chronic Disease -Consider Iron Supplementation -Monitor HgB. Transfuse if Hgb < 7 Hypertension: - C/w home meds carvedilol and losartan/hctz IDDM: - hold home oral antidiabetics - c.w home levemir and on ISS. -hold insulin for sugars > 400 Hx of HLD: - c/w lovastatin Hx of asthma: -c/w singulair DVT ppx: SCDs GI ppx: protonix Patient seen, reviewed, and discussed with attending Goyo Lepe - PGY-1 <Hazel Asif - Last Filed: 11/09/16 18:07> Objective - Vital Signs/Intake and Output Vital Signs (last 24 hours): Temp Pulse Resp BP Pulse Ox 98.3 F 72 20 203/87 H 95 11/09/16 07:30 11/09/16 17:25 11/09/16 07:30 11/09/16 17:25 11/09/16 07:30 Intake and Output: 11/09/16 11/09/16 06:59 18:59 Intake Total 120 240 Balance 120 240 - Medications Medications: Current Medications Acetaminophen (Tylenol 325mg Tab) 650 mg PO Q6H PRN PRN Reason: Fever >100.4 F Last Admin: 11/07/16 07:04 Dose: 650 mg Aspirin (Aspirin Chewable) 81 mg PO DAILY [facility] Last Admin: 11/09/16 10:56 Dose: 81 mg Atorvastatin Calcium (Lipitor) 10 mg PO DIN [facility] Last Admin: 09/13/17 17:25 Dose: 10 mg Carvedilol (Coreg) 6.25 mg PO BID [facility] Last Admin: 11/09/16 17:25 Dose: 6.25 mg Docusate Sodium (Colace) 100 mg PO BID [facility] Last Admin: 11/09/16 17:25 Dose: 100 mg Ergocalciferol (Drisdol 50,000 Intl Units Cap) 1 cap PO Q7D [facility] Last Admin: 11/04/16 10:44 Dose: 1 cap Hydrochlorothiazide (Microzide) 12.5 mg PO DAILY [facility] Last Admin: 11/09/16 10:56 Dose: 12.5 mg Cefepime HCl (Maxipime 2gm) 2 gm in 100 mls @ 100 mls/hr IVPB Q8 [facility] PRN Reason: Protocol Stop: 11/12/16 14:01 Last Admin: 11/09/16 14:06 Dose: 100 mls/hr Sodium Chloride (Sodium Chloride 0.45%) 1,000 mls @ 80 mls/hr IV .[id number] [facility] Stop: 11/11/16 12:00 Last Admin: 11/09/16 13:54 Dose: 80 mls/hr Insulin Detemir (Levemir) 10 unit SC DAILY [facility] Last Admin: 11/09/16 10:58 Dose: Not Given Insulin Human Regular (Humulin R Med) 0 units SC ACHS [facility] PRN Reason: Protocol Last Admin: 11/09/16 17:28 Dose: Not Given Losartan Potassium (Cozaar) 50 mg PO DAILY [facility] Last Admin: 11/09/16 10:54 Dose: 50 mg Montelukast Sodium (Singulair) 10 mg PO HS [facility] Last Admin: 11/08/16 22:53 Dose: 10 mg Oxycodone/Acetaminophen (Percocet 5/325 Mg Tab) 1 tab PO Q4H PRN PRN Reason: Pain, severe (8-10) Stop: 11/10/16 09:02 Last Admin: 11/09/16 06:28 Dose: 1 tab Pantoprazole Sodium (Protonix Ec Tab) 40 mg PO 0600 [facility] Last Admin: 11/09/16 06:06 Dose: 40 mg - Labs Labs: 11/09/16 07:00 11/09/16 07:00 PT 10.7 Seconds (9.9-11.8) 11/03/16 22:36 INR 0.99 (0.93-1.08) 11/03/16 22:36 APTT 32.4 Seconds (23.7-30.8) H 11/03/16 22:36 Attending/Attestation - Attestation I have personally seen and examined this patient.: Yes I have fully participated in the care of the patient.: Yes I have reviewed all pertinent clinical information, including history, physical exam and plan: Yes Notes (Text): 11/09/16 18:01 Attending note; Patient seen and examined with resident. Patient is a 81 year old Female with PMH; IDDM, HTN, HLD, CVA, presents for right 3rd toe discoloration, right distal foot ulcer, uncontrolled HTN, hyperglycemia. R foot ulcer; Continue local wound care by podiatry. Venous Doppler is negative for DVT. MRA ordered .case discussed with vascular surgery Dr. Cj Martinez in detail. Wound culture is positive for Pseudomonas .Continue IV cefepime. ID evaluation appreciated. Lower extremity MRI was inconclusive for osteomyelitis. Bone scan is positive for distal third metatarsal. Case discussed with podiatry in detail. Anemia; chronic. Monitor hemoglobin. Diabetes; continue Levemir. Hypertension; continue Coreg and Cozaar. The diagnosis and treatment plan discussed with patient's daughter and son in law in detail. Upon discharge the patient will follow-up with PMD Dr. Rossi.
--- NOTE | 2016-11-08 14:55 | PN ---
DATE: 11/08/2016 SUBJECTIVE: The patient is seen early this morning in room #560, bed 1. No fevers or chills. No chest pain on exam. PHYSICAL EXAMINATION VITAL SIGNS: Temperature 97, blood pressure is 140/60, respiratory rate of 18, heart rate of 64. HEENT: Unremarkable. NECK: Supple. LUNGS: Decreased breath sounds. HEART: Normal S1 and S2. ABDOMEN: Soft. LABORATORY EXAMINATION: Reveals a white count of 8.7, hemoglobin of 8, platelets of 301. Chemistries are noted. Cultures are pseudomonas from the right foot with Cefepime sensitive, pseudomonas and meropenem sensitive. Blood cultures in no growth. ASSESSMENT AND PLAN: An 81-year-old female with a right foot ulcer and cellulitis with pseudomonas with severe peripheral artery disease and currently with hypertension, dyslipidemia, diabetes and on day #5 of Cefepime, most probably underlying osteomyelitis. Bone scan is ordered, awaiting for that to help us differentiate underlying osteomyelitis. Tre Boss MD
--- NOTE | 2016-11-08 15:01 | MRI ---
PROCEDURE: MR angiography of the abdominal aorta and lower extremities with and without contrast HISTORY: PVD. Gangrene rt 3rd toe. ? rt iliac disease COMPARISON: TECHNIQUE: MR angiography was performed with and without IV contrast. 20 cc of Omniscan were injected. FINDINGS: There is no significant stenosis in the aorta. The celiac SMA and renal arteries are patent. Common, internal and external iliac arteries are widely patent. There is a focal short segment stenosis in the proximal right SFA. Several short segment stenoses are seen in the distal right SFA and popliteal. The left SFA is patent with no focal stenosis. Below the knee on the right side the tibioperoneal trunk is patent. The peroneal and posterior tibial extent to the ankle. On the left side there is single vessel runoff to the ankle via the peroneal. IMPRESSION: No evidence of iliac stenosis or occlusion. Focal stenoses in the right proximal and distal SFA. Occluded anterior tibial. Single vessel runoff to left ankle via the peroneal. Anterior and posterior tibial arteries are occluded
--- NOTE | 2016-11-08 15:36 | CP.PCM.PN ---
<Debo Alonso - Last Filed: 11/08/16 15:31> Subjective - Date & Time of Evaluation Date of Evaluation: 11/08/16 Time of Evaluation: 15:31 - Subjective Subjective: Podiatry Progress Note - Dr. Garrido 81 y/o female seen at bedside with attending Dr. Garrido for 3rd gangrenous digit and a dailey grade 1 ulcer on the dorsum of the right foot. Patient is accompanied by her family and just had an MRA performed. Patient is AAOx3 and is in NAD. Patient denies of any acute overnight events. Patient denies of any pain in her right foot. Patient denies of any F/N/V/C/SOB/CP today. No other pedal complaints at this time. Objective - Vital Signs/Intake and Output Vital Signs (last 24 hours): Temp Pulse Resp BP Pulse Ox 97.3 F L 66 18 159/67 H 96 11/08/16 07:17 11/08/16 09:37 11/08/16 07:17 11/08/16 09:37 11/08/16 07:17 Intake and Output: 11/08/16 11/08/16 06:59 18:59 Intake Total 580 440 Output Total 300 Balance 280 440 - Medications Medications: Current Medications Acetaminophen (Tylenol 325mg Tab) 650 mg PO Q6H PRN PRN Reason: Fever >100.4 F Last Admin: 11/07/16 07:04 Dose: 650 mg Aspirin (Aspirin Chewable) 81 mg PO DAILY [facility] Last Admin: 11/08/16 09:37 Dose: 81 mg Atorvastatin Calcium (Lipitor) 10 mg PO DIN [facility] Last Admin: 11/07/16 17:31 Dose: 10 mg Carvedilol (Coreg) 6.25 mg PO BID [facility] Last Admin: 11/08/16 09:37 Dose: 6.25 mg Docusate Sodium (Colace) 100 mg PO BID [facility] Last Admin: 11/08/16 09:36 Dose: 100 mg Ergocalciferol (Drisdol 50,000 Intl Units Cap) 1 cap PO Q7D [facility] Last Admin: 11/04/16 10:44 Dose: 1 cap Hydrochlorothiazide (Microzide) 12.5 mg PO DAILY [facility] Last Admin: 11/08/16 09:37 Dose: 12.5 mg Cefepime HCl (Maxipime 2gm) 2 gm in 100 mls @ 100 mls/hr IVPB Q8 [facility] PRN Reason: Protocol Stop: 11/12/16 14:01 Last Admin: 11/08/16 05:49 Dose: 100 mls/hr Sodium Chloride (Sodium Chloride 0.45%) 1,000 mls @ 80 mls/hr IV .[id number] [facility] Stop: 11/11/16 12:00 Insulin Detemir (Levemir) 10 unit SC DAILY [facility] Last Admin: 11/08/16 11:30 Dose: Not Given Insulin Human Regular (Humulin R Med) 0 units SC ACHS [facility] PRN Reason: Protocol Last Admin: 11/08/16 11:38 Dose: Not Given Losartan Potassium (Cozaar) 50 mg PO DAILY [facility] Last Admin: 11/08/16 09:35 Dose: 50 mg Montelukast Sodium (Singulair) 10 mg PO HS [facility] Last Admin: 11/07/16 22:23 Dose: 10 mg Oxycodone/Acetaminophen (Percocet 5/325 Mg Tab) 1 tab PO Q4H PRN PRN Reason: Pain, severe (8-10) Stop: 11/10/16 09:02 Last Admin: 11/08/16 00:02 Dose: 1 tab Pantoprazole Sodium (Protonix Ec Tab) 40 mg PO 0600 [facility] Last Admin: 11/08/16 05:49 Dose: 40 mg - Labs Labs: 11/07/16 06:15 11/07/16 06:15 PT 10.7 Seconds (9.9-11.8) 11/03/16 22:36 INR 0.99 (0.93-1.08) 11/03/16 22:36 APTT 32.4 Seconds (23.7-30.8) H 11/03/16 22:36 - Constitutional Appears: Well, Non-toxic, No Acute Distress - Extremities Exam Additional comments: VASC: DP/PT pulses are non-palpable bilaterally, [employer]: > 3 sec to all digits, Temp gradient: cool to cool from proximal to distal, no pitting or non-pitting edema noted bilaterally DERM: hyperpigmented and necrotic 3rd digit with dorsum of the right forefoot wound, wound bed appears to have approximately 75% fibrosis and 25% granular base, no periwound erythema, minimal serosanguinous drainage, no active bleeding , no probe to bone, no ascending cellulitis, no undermining or tunneling, no clinical suspicion of active infection NEURO: Protective sensation grossly diminished ORTHO: no pain on palpation of the 3rd digit on the right foot - Neurological Exam Neurological Exam: Alert, Awake, Oriented x3 Assessment and Plan - Assessment and Plan (Free Text) Assessment: 81 y/o female seen at bedside for 1). gangrenous 3rd digit on the right foot 2) . open wound dailey grade 1 Plan: Patient seen and evaluated with attending, Dr. Garrido Labs and vitals reviewed ; afebrile Dressing changed using tefla, DSD to right foot MRA shows right leg anterior tibial occlusion, SFA stenosis MRI exam inconclusive - shows artifacts Patient to go for tentative arteriogram w/ vascular surgeon Dr. Martinez on discussed possible surgical options with family if there is sufficient blood flow after revasc. Patient to remain on IV abx Podiatry to follow patient while patient is in house <Marquez Garrido - Last Filed: 11/11/16 10:26> Objective - Vital Signs/Intake and Output Vital Signs (last 24 hours): Temp Pulse Resp BP Pulse Ox 97.1 F L 61 18 169/75 H 100 11/11/16 07:00 11/11/16 07:00 11/11/16 07:00 11/11/16 07:00 11/11/16 07:00 - Medications Medications: Current Medications Acetaminophen (Tylenol 325mg Tab) 650 mg PO Q6H PRN PRN Reason: Fever >100.4 F Last Admin: 11/11/16 07:05 Dose: 650 mg Aspirin (Aspirin Chewable) 81 mg PO DAILY [facility] Last Admin: 11/10/16 10:19 Dose: 81 mg Atorvastatin Calcium (Lipitor) 10 mg PO DIN [facility] Last Admin: 11/10/16 17:01 Dose: Not Given Carvedilol (Coreg) 6.25 mg PO BID [facility] Last Admin: 11/10/16 18:00 Dose: Not Given Docusate Sodium (Colace) 100 mg PO BID [facility] Last Admin: 11/10/16 18:00 Dose: Not Given Ergocalciferol (Drisdol 50,000 Intl Units Cap) 1 cap PO Q7D [facility] Last Admin: 11/04/16 10:44 Dose: 1 cap Hydrochlorothiazide (Microzide) 12.5 mg PO DAILY [facility] Last Admin: 11/10/16 10:24 Dose: Not Given Cefepime HCl (Maxipime 2gm) 2 gm in 100 mls @ 100 mls/hr IVPB Q8 [facility] PRN Reason: Protocol Stop: 11/12/16 14:01 Last Admin: 11/11/16 06:57 Dose: 100 mls/hr Sodium Chloride (Sodium Chloride 0.45%) 1,000 mls @ 80 mls/hr IV .[id number] [facility] Stop: 11/11/16 12:00 Last Admin: 11/11/16 03:15 Dose: 80 mls/hr Insulin Detemir (Levemir) 10 unit SC DAILY [facility] Last Admin: 11/10/16 10:22 Dose: Not Given Insulin Human Regular (Humulin R Med) 0 units SC ACHS [facility] PRN Reason: Protocol Last Admin: 11/10/16 21:56 Dose: Not Given Losartan Potassium (Cozaar) 50 mg PO DAILY [facility] Last Admin: 11/10/16 10:21 Dose: Not Given Montelukast Sodium (Singulair) 10 mg PO HS [facility] Last Admin: 11/10/16 22:12 Dose: 10 mg Pantoprazole Sodium (Protonix Ec Tab) 40 mg PO 0600 [facility] Last Admin: 11/11/16 06:57 Dose: 40 mg - Labs Labs: 11/11/16 08:35 11/11/16 08:35 PT 10.7 Seconds (9.9-11.8) 11/03/16 22:36 INR 0.99 (0.93-1.08) 11/03/16 22:36 APTT 32.4 Seconds (23.7-30.8) H 11/03/16 22:36 Attending/Attestation - Attestation I have personally seen and examined this patient.: Yes I have fully participated in the care of the patient.: Yes I have reviewed all pertinent clinical information, including history, physical exam and plan: Yes
--- NOTE | 2016-11-08 15:41 | NM ---
PROCEDURE: Whole Body Bone Scan HISTORY: r/o r foot osteomyelitis COMPARISON: 11/13/2016 right foot radiographs TECHNIQUE: Following administration of 25.2 miCu of Tc MDP multiplanar whole body images were obtained. FINDINGS: Flow component: Increased flow to the right foot with focal activity at the level of the 3rd metatarsal. Blood pool component: Accumulation of radionuclide right foot best seen on anterior and plantar views at the level of 3rd metatarsal phalangeal junction. Delayed images at 3:00: Retention of radionuclide corresponding to the distal 3rd phalanx. Other findings: None. IMPRESSION: Positive three-phase bone scan. Anatomic area affected is the distal 3rd metatarsal.
[2016-11-09] MEDS: Cefepime IV 2 gm in NS 2 GM/100 ML BAG IVPB SCH ×3 (06:06→22:31)
[2016-11-09] MEDS: Pantoprazole 40 mg EC Tab PO SCH (06:06)
[2016-11-09] MEDS: Oxycodone/Acetaminophen 5/325 mg Tab PO PRN (06:28)
[2016-11-09 07:13] LABS: BASO # 0.04 K/mm3 (0.0-2.0); BASO % 0.4 % (0.0-3.0); EOS # 0.3 (0.0-0.7); EOS % 3.3 % (1.5-5.0); GRAN # 6.52 (1.4-6.5); GRAN % 69.5 % (50.0-68.0); LYMPH # 1.3 (1.2-3.4); LYMPH % 13.9 % (22.0-35.0); MEAN CELL VOLUME 80.6 fl (80.0-105.0); MEAN CORPUSCULAR HEMOGLOBIN 25.8 pg (25.0-35.0); MEAN PLATELET VOLUME 9.4 fl (7.0-11.0); MONO # 1.2 (0.1-0.6); MONO % 12.9 % (1.0-6.0); RED CELL DISTRIBUTION WIDTH 14.2 % (11.5-14.5); WHITE BLOOD COUNT 9.4 10^3/ul (4.5-11.0)
[2016-11-09 07:29] LABS: ALB/GLOB RATIO 0.9 (1.1-1.8); ALKALINE PHOSPHATASE 81 U/L (38-126); ALT/SGPT 28 U/L (7-56); AST/SGOT 35 U/L (14-36); BILIRUBIN,TOTAL 0.5 mg/dL (0.2-1.3); BLOOD UREA NITROGEN 23 mg/dL (7-21); CARBON DIOXIDE 26 mmol/L (21-33); CHLORIDE 104 mmol/L (98-107); GFR AFRICAN-AMERICAN > 60; GLUCOSE,RANDOM 180 mg/dL (70-110); POTASSIUM 4.4 mmol/L (3.6-5.0); SODIUM 136 mmol/L (132-148); TOTAL PROTEIN 5.8 g/dL (5.8-8.3)
[2016-11-09] MEDS: Insulin Reg-MEDIUM-Coverage SC SCH ×4 (08:27→22:37)
--- NOTE | 2016-11-09 10:09 | CARD ---
APPROVED REPORT EKG Measurement Heart [id number] <Conclusion> Normal sinus rhythm Nonspecific T wave abnormality Poor R Progression V1-V4.
[2016-11-09] MEDS: Insulin Detemir 100 units/ml Vial (Levemir) SC SCH (10:58)
--- NOTE | 2016-11-09 11:37 | CON ---
DATE OF CONSULTATION: 11/09/2016 HISTORY OF PRESENT ILLNESS: The patient is an 81-year-old woman who presents with right lower extremity ischemia and gangrene in the right lower extremity digits. PAST MEDICAL HISTORY: The patient's past medical history includes history of hypertension, hypercholesterolemia, as well as diabetes mellitus. She denies previous cardiac history in the past other than In 2013, an echocardiogram reveals mild aortic stenosis. She denies shortness of breath. SOCIAL HISTORY: Negative smoker. REVIEW OF SYSTEMS: Include pain in the right lower extremity. No angina. No dyspnea. PHYSICAL EXAMINATION: VITAL SIGNS: Blood pressure is 162/72, the heart rate in the 70s. NECK: Negative JVD. LUNGS: Without rales. HEART: S1 and S2. EXTREMITIES: Gangrene in the right lower extremity digits. EKG shows normal sinus rhythm with diffuse ST-T changes. LABORATORY DATA: Her hemoglobin is 8.3. Chemistries, glucose is 298 with a creatinine of 1.1. IMPRESSION: 1. Ischemic right lower extremity. 2. Documented peripheral vascular disease on magnetic resonance angiogram. 3. Diabetes mellitus. 4. Hypertension. 5. Hypercholesterolemia. 6. Diabetes mellitus. 7. High probability for coronary artery disease. 8. History of mild aortic stenosis. Given these findings, the patient is currently asymptomatic from a cardiac perspective. However, we will need to obtain an echocardiogram to evaluate her LV function and status of her aortic valve. Echocardiogram has been ordered. Cj May MD
[2016-11-09] MEDS: Sodium Chloride 0.45% 1,000 ML IV SCH (13:54)
--- NOTE | 2016-11-09 16:03 | CP.PCM.PN ---
<StarbonnieTommyfeli - Last Filed: 11/09/16 16:08> Subjective - Date & Time of Evaluation Date of Evaluation: 11/09/16 Time of Evaluation: 10:30 - Subjective Subjective: Patient has been seen and examined. No events reported overnight. She denies any CP, SOB, Palpitations, Fever, Chills, Abdominal pain, N/V/D, constipation. Objective - Vital Signs/Intake and Output Vital Signs (last 24 hours): Temp Pulse Resp BP Pulse Ox 98.3 F 65 20 198/86 H 95 11/09/16 07:30 11/09/16 10:56 11/09/16 07:30 11/09/16 10:56 11/09/16 07:30 Intake and Output: 11/09/16 11/09/16 06:59 18:59 Intake Total 120 240 Balance 120 240 - Medications Medications: Current Medications Acetaminophen (Tylenol 325mg Tab) 650 mg PO Q6H PRN PRN Reason: Fever >100.4 F Last Admin: 11/07/16 07:04 Dose: 650 mg Aspirin (Aspirin Chewable) 81 mg PO DAILY [facility] Last Admin: 11/09/16 10:56 Dose: 81 mg Atorvastatin Calcium (Lipitor) 10 mg PO DIN [facility] Last Admin: 11/08/16 17:06 Dose: 10 mg Carvedilol (Coreg) 6.25 mg PO BID [facility] Last Admin: 11/09/16 10:56 Dose: 6.25 mg Docusate Sodium (Colace) 100 mg PO BID [facility] Last Admin: 11/09/16 10:55 Dose: 100 mg Ergocalciferol (Drisdol 50,000 Intl Units Cap) 1 cap PO Q7D [facility] Last Admin: 11/04/16 10:44 Dose: 1 cap Hydrochlorothiazide (Microzide) 12.5 mg PO DAILY [facility] Last Admin: 11/09/16 10:56 Dose: 12.5 mg Cefepime HCl (Maxipime 2gm) 2 gm in 100 mls @ 100 mls/hr IVPB Q8 [facility] PRN Reason: Protocol Stop: 11/12/16 14:01 Last Admin: 11/09/16 14:06 Dose: 100 mls/hr Sodium Chloride (Sodium Chloride 0.45%) 1,000 mls @ 80 mls/hr IV .[id number] [facility] Stop: 11/11/16 12:00 Last Admin: 11/09/16 13:54 Dose: 80 mls/hr Insulin Detemir (Levemir) 10 unit SC DAILY [facility] Last Admin: 11/09/16 10:58 Dose: Not Given Insulin Human Regular (Humulin R Med) 0 units SC ACHS [facility] PRN Reason: Protocol Last Admin: 11/09/16 13:37 Dose: Not Given Losartan Potassium (Cozaar) 50 mg PO DAILY [facility] Last Admin: 11/09/16 10:54 Dose: 50 mg Montelukast Sodium (Singulair) 10 mg PO HS [facility] Last Admin: 11/08/16 22:53 Dose: 10 mg Oxycodone/Acetaminophen (Percocet 5/325 Mg Tab) 1 tab PO Q4H PRN PRN Reason: Pain, severe (8-10) Stop: 11/10/16 09:02 Last Admin: 11/09/16 06:28 Dose: 1 tab Pantoprazole Sodium (Protonix Ec Tab) 40 mg PO 0600 [facility] Last Admin: 11/09/16 06:06 Dose: 40 mg - Labs Labs: 11/09/16 07:00 11/09/16 07:00 PT 10.7 Seconds (9.9-11.8) 11/03/16 22:36 INR 0.99 (0.93-1.08) 11/03/16 22:36 APTT 32.4 Seconds (23.7-30.8) H 11/03/16 22:36 - Constitutional Appears: Non-toxic, No Acute Distress - Head Exam Head Exam: ATRAUMATIC, NORMAL INSPECTION, NORMOCEPHALIC - 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 - Respiratory Exam Respiratory Exam: Clear to Ausculation Bilateral. absent: Rales, Rhonchi, Wheezes, Stridor - Cardiovascular Exam Cardiovascular Exam: RRR, +S1, +S2 - GI/Abdominal Exam GI & Abdominal Exam: Soft, Normal Bowel Sounds. absent: Tenderness, Organomegaly - Extremities Exam Extremities Exam: absent: Normal Capillary Refill, Pedal Edema Additional comments: necrotic R 3rd toe w/ proximal ulcer. - Neurological Exam Neurological Exam: Alert, Awake, Oriented x3 - Psychiatric Exam Psychiatric exam: Normal Affect, Normal Mood Assessment and Plan - Assessment and Plan (Free Text) Assessment: 81F with PMH IDDM, HTN, HLD, CVA, presents for right 3rd toe discoloration, right distal foot ulcer, uncontrolled HTN, hyperglycemia Plan: Right distal foot ulcer near right 3rd toe/necrotic R 3rd toe: -Foot Xray: Showed soft tissue swelling w/o acute articular/osseous abnormality , and no signs of osteomyelitis. -Vascular consult ordered (Dr. Martinez) - recs appreciated. - Podiatry recs appreciated. - MRI shows increased signal density in Bone marrow but likely artifact - Bone scan reads positive three way bone scan - MRA read No evidence of iliac stenosis or occlusion. Focal stenosis in right proximal and distal SFA. Occluded anterior tibial. Single vessel runoff to left ankle via the peroneal. Anterior and posterior tibial arteries are occluded -scheduled for arteriogram w/ intervention on . -Blood culture shows no growth after 4 days. Wound cultures show Pseudomonas A. - Continue Cefepime. Anemia of Chronic Disease -Hgb 8 today. - Iron Supplementation -Monitor HgB. Transfuse if Hgb < 7 Hypertension: - C/w home meds carvedilol and losartan/hctz IDDM: - hold home oral antidiabetics - c.w home levemir and on ISS. -hold insulin for sugars > 400 Hx of HLD: - c/w lovastatin Hx of asthma: -c/w singulair DVT ppx: SCDs GI ppx: protonix Patient seen, reviewed, and discussed with attending Goyo Lepe - PGY- <Hazel Asif - Last Filed: 11/09/16 18:10> Objective - Vital Signs/Intake and Output Vital Signs (last 24 hours): Temp Pulse Resp BP Pulse Ox 98.3 F 72 20 203/87 H 95 11/09/16 07:30 11/09/16 17:25 11/09/16 07:30 11/09/16 17:25 11/09/16 07:30 Intake and Output: 11/09/16 11/09/16 06:59 18:59 Intake Total 120 240 Balance 120 240 - Medications Medications: Current Medications Acetaminophen (Tylenol 325mg Tab) 650 mg PO Q6H PRN PRN Reason: Fever >100.4 F Last Admin: 11/07/16 07:04 Dose: 650 mg Aspirin (Aspirin Chewable) 81 mg PO DAILY [facility] Last Admin: 11/09/16 10:56 Dose: 81 mg Atorvastatin Calcium (Lipitor) 10 mg PO DIN [facility] Last Admin: 11/09/16 17:25 Dose: 10 mg Carvedilol (Coreg) 6.25 mg PO BID [facility] Last Admin: 11/09/16 17:25 Dose: 6.25 mg Docusate Sodium (Colace) 100 mg PO BID [facility] Last Admin: 11/09/16 17:25 Dose: 100 mg Ergocalciferol (Drisdol 50,000 Intl Units Cap) 1 cap PO Q7D [facility] Last Admin: 11/04/16 10:44 Dose: 1 cap Hydrochlorothiazide (Microzide) 12.5 mg PO DAILY [facility] Last Admin: 11/09/16 10:56 Dose: 12.5 mg Cefepime HCl (Maxipime 2gm) 2 gm in 100 mls @ 100 mls/hr IVPB Q8 [facility] PRN Reason: Protocol Stop: 11/12/16 14:01 Last Admin: 11/09/16 14:06 Dose: 100 mls/hr Sodium Chloride (Sodium Chloride 0.45%) 1,000 mls @ 80 mls/hr IV .[id number] [facility] Stop: 11/11/16 12:00 Last Admin: 11/09/16 13:54 Dose: 80 mls/hr Insulin Detemir (Levemir) 10 unit SC DAILY [facility] Last Admin: 11/09/16 10:58 Dose: Not Given Insulin Human Regular (Humulin R Med) 0 units SC ACHS [facility] PRN Reason: Protocol Last Admin: 11/09/16 17:28 Dose: Not Given Losartan Potassium (Cozaar) 50 mg PO DAILY [facility] Last Admin: 11/09/16 10:54 Dose: 50 mg Montelukast Sodium (Singulair) 10 mg PO HS [facility] Last Admin: 11/08/16 22:53 Dose: 10 mg Oxycodone/Acetaminophen (Percocet 5/325 Mg Tab) 1 tab PO Q4H PRN PRN Reason: Pain, severe (8-10) Stop: 11/10/16 09:02 Last Admin: 11/09/16 06:28 Dose: 1 tab Pantoprazole Sodium (Protonix Ec Tab) 40 mg PO 0600 [facility] Last Admin: 11/09/16 06:06 Dose: 40 mg - Labs Labs: 11/09/16 07:00 11/09/16 07:00 PT 10.7 Seconds (9.9-11.8) 11/03/16 22:36 INR 0.99 (0.93-1.08) 11/03/16 22:36 APTT 32.4 Seconds (23.7-30.8) H 11/03/16 22:36 Attending/Attestation - Attestation I have personally seen and examined this patient.: Yes I have fully participated in the care of the patient.: Yes I have reviewed all pertinent clinical information, including history, physical exam and plan: Yes Notes (Text): 11/09/16 18:08 Attending note; Patient seen and examined with resident. Patient is a 81 year old Female with PMH; IDDM, HTN, HLD, CVA, presents for right 3rd toe discoloration, right distal foot ulcer, uncontrolled HTN, hyperglycemia. R foot ulcer and osteomyelitis ; Continue local wound care by podiatry. Venous Doppler is negative for DVT. MRA showed right superficial femoral arterial disease .case discussed with vascular surgery Dr. Cj Martinez in detail. Plan for angiogram tomorrow. Started on normal saline. Wound culture is positive for Pseudomonas .Continue IV cefepime. ID evaluation appreciated. Lower extremity MRI was inconclusive for osteomyelitis. Bone scan is positive for distal third metatarsal. Case discussed with podiatry in detail. Anemia; chronic. Type and screen done. Diabetes; continue Levemir. Hypertension; continue Coreg and Cozaar. Cardiology evaluation with Dr. May appreciated. Echocardiogram showed normal ejection fraction. The diagnosis and treatment plan discussed with patient's daughter in detail. Upon discharge the patient will follow-up with PMD Dr. Rossi. 11/09/16 18:08 11/09/16 18:09
--- NOTE | 2016-11-09 16:18 | CARD ---
APPROVED REPORT EXAM: Two-dimensional and M-mode echocardiogram with Doppler and color Doppler. INDICATION Cardiac Disease: CAD 2D DIMENSIONS Left Atrium (2D)4.2 (1.6-4.0cm)IVSd1.5 (0.7-1.1cm) LVDd4.2 (3.9-5.9cm)PWd1.2 (0.7-1.1cm) LVDs2.8 (2.5-4.0cm)FS (%) 34.1 % LVEF (%)63.4 (>50%) M-Mode DIMENSIONS Aortic Root2.80 (2.2-3.7cm)Aortic Cusp Exc.1.50 (1.5-2.0cm) Aortic Valve AoV Peak Ipaujgod385.0cm/Jovanny Peak GR.11mmHgAI P 1/2 [id number] Mitral Valve MV E Nqhxhwhh06.3cm/sMV A Nstjammv58.2cm/sE/A ratio0.9 TDI Lateral E' Peak V6.04cm/sMedial E' Peak V4.83cm/sE/Lateral E'15.0 E/Medial E'18.7 Pulmonary Valve PV Peak Zfwediko65.1cm/sPV Peak Grad.2mmHg Tricuspid Valve TR Peak Brhwugur945lo/sRAP [id number] Peak Gr.42mmHg [id number] LEFT VENTRICLE The left ventricle is normal size. There is mild concentric left ventricular hypertrophy. The left ventricular function is normal. The left ventricular ejection fraction is within the normal range. There is normal LV segmental wall motion. Transmitral Doppler flow pattern is Grade I-abnormal relaxation pattern. RIGHT VENTRICLE The right ventricle is normal size. There is normal right ventricular wall thickness. The right ventricular systolic function is normal. ATRIA The left atrium is borderline dilated. The right atrium is borderline dilated. AORTIC VALVE The aortic valve is moderately thickened. There is moderate aortic regurgitation. MITRAL VALVE The mitral valve is moderately thickened. Mitral regurgitation is mild. TRICUSPID VALVE There is mild to moderate pulmonary hypertension. GREAT VESSELS The aortic root is normal in size. The IVC is normal in size and collapses >50% with inspiration. PERICARDIAL EFFUSION There is a small-moderate circumferential pericardial effusion.No Tamponade <Conclusion> The left ventricle is normal size. There is mild concentric left ventricular hypertrophy. The left ventricular function is normal. The left ventricular ejection fraction is within the normal range. There is normal LV segmental wall motion. Transmitral Doppler flow pattern is Grade I-abnormal relaxation pattern. There is moderate aortic regurgitation. Mitral regurgitation is mild. There is mild to moderate pulmonary hypertension. There is a small-moderate circumferential pericardial effusion.No Tamponade
--- NOTE | 2016-11-09 19:18 | CP.PCM.PN ---
Subjective - Date & Time of Evaluation Date of Evaluation: 11/09/16 Time of Evaluation: 18:35 - Subjective Subjective: Comfortable, no fevers, no new complaints. Objective - Vital Signs/Intake and Output Vital Signs (last 24 hours): Temp Pulse Resp BP Pulse Ox 98.3 F 65 20 198/86 H 95 11/09/16 07:30 11/09/16 10:56 11/09/16 07:30 11/09/16 10:56 11/09/16 07:30 Intake and Output: 11/09/16 11/09/16 06:59 18:59 Intake Total 120 Balance 120 - Medications Medications: Current Medications Acetaminophen (Tylenol 325mg Tab) 650 mg PO Q6H PRN PRN Reason: Fever >100.4 F Last Admin: 11/07/16 07:04 Dose: 650 mg Aspirin (Aspirin Chewable) 81 mg PO DAILY [facility] Last Admin: 11/09/16 10:56 Dose: 81 mg Atorvastatin Calcium (Lipitor) 10 mg PO DIN [facility] Last Admin: 11/08/16 17:06 Dose: 10 mg Carvedilol (Coreg) 6.25 mg PO BID [facility] Last Admin: 11/09/16 10:56 Dose: 6.25 mg Docusate Sodium (Colace) 100 mg PO BID [facility] Last Admin: 11/09/16 10:55 Dose: 100 mg Ergocalciferol (Drisdol 50,000 Intl Units Cap) 1 cap PO Q7D [facility] Last Admin: 11/04/16 10:44 Dose: 1 cap Hydrochlorothiazide (Microzide) 12.5 mg PO DAILY [facility] Last Admin: 11/09/16 10:56 Dose: 12.5 mg Cefepime HCl (Maxipime 2gm) 2 gm in 100 mls @ 100 mls/hr IVPB Q8 [facility] PRN Reason: Protocol Stop: 11/12/16 14:01 Last Admin: 11/09/16 06:06 Dose: 100 mls/hr Sodium Chloride (Sodium Chloride 0.45%) 1,000 mls @ 80 mls/hr IV .[id number] [facility] Stop: 11/11/16 12:00 Last Admin: 11/09/16 13:54 Dose: 80 mls/hr Insulin Detemir (Levemir) 10 unit SC DAILY [facility] Last Admin: 11/09/16 10:58 Dose: Not Given Insulin Human Regular (Humulin R Med) 0 units SC ACHS [facility] PRN Reason: Protocol Last Admin: 11/09/16 13:37 Dose: Not Given Losartan Potassium (Cozaar) 50 mg PO DAILY [facility] Last Admin: 11/09/16 10:54 Dose: 50 mg Montelukast Sodium (Singulair) 10 mg PO HS [facility] Last Admin: 11/08/16 22:53 Dose: 10 mg Oxycodone/Acetaminophen (Percocet 5/325 Mg Tab) 1 tab PO Q4H PRN PRN Reason: Pain, severe (8-10) Stop: 11/10/16 09:02 Last Admin: 11/09/16 06:28 Dose: 1 tab Pantoprazole Sodium (Protonix Ec Tab) 40 mg PO 0600 [facility] Last Admin: 11/09/16 06:06 Dose: 40 mg - Labs Labs: 11/09/16 07:00 11/09/16 07:00 PT 10.7 Seconds (9.9-11.8) 11/03/16 22:36 INR 0.99 (0.93-1.08) 11/03/16 22:36 APTT 32.4 Seconds (23.7-30.8) H 11/03/16 22:36 - Constitutional Appears: Non-toxic, No Acute Distress - Head Exam Head Exam: NORMAL INSPECTION - Neck Exam Neck Exam: absent: Meningismus - Respiratory Exam Respiratory Exam: Decreased Breath Sounds - Cardiovascular Exam Cardiovascular Exam: +S1, +S2 - GI/Abdominal Exam GI & Abdominal Exam: Soft. absent: Tenderness - Extremities Exam Additional comments: right foot with dressings in place Assessment and Plan - Assessment and Plan (Free Text) Plan: Assessment infected right foot ulcer with cellulitis with Pseudomonas with severe peripheral arterial disease; osteomyelitis could not be ruled out with MRI but bone scan is positive HTN dyslipidemia DM history of CVA asthma history of left foot ulcer and infection Plan continue Cefepime day 6; ESR and CRP are both elevated Dr. Martinez for possible revascularization on the right leg tomorrow, then Podiatry to see next steps after revascularization is done
[2016-11-10] MEDS: Sodium Chloride 0.45% 1,000 ML IV SCH (00:35)
[2016-11-10] MEDS: Pantoprazole 40 mg EC Tab PO SCH (05:54)
[2016-11-10] MEDS: Cefepime IV 2 gm in NS 2 GM/100 ML BAG IVPB SCH ×3 (05:56→22:11)
[2016-11-10] MEDS: Insulin Reg-MEDIUM-Coverage SC SCH ×4 (08:16→21:56)
[2016-11-10] MEDS: Insulin Detemir 100 units/ml Vial (Levemir) SC SCH (10:22)
--- NOTE | 2016-11-10 10:32 | CP.PCM.PN ---
<Debo Alonso - Last Filed: 11/10/16 10:30> Subjective - Date & Time of Evaluation Date of Evaluation: 11/10/16 Time of Evaluation: 10:30 - Subjective Subjective: Podiatry Progress Note - Dr. Arevalo 81 y/o female seen at bedside with attending Dr. Arevalo for 3rd gangrenous digit and a dailey grade 1 ulcer on the dorsum of the right foot. Patient is accompanied by her family and just had an MRA performed. Patient is AAOx3 and is in NAD. Patient denies of any acute overnight events. Patient denies of any pain in her right foot. Patient denies of any F/N/V/C/SOB/CP today. No other pedal complaints at this time. Objective - Vital Signs/Intake and Output Vital Signs (last 24 hours): Temp Pulse Resp BP Pulse Ox 100 F H 66 18 99/69 L 98 11/10/16 08:15 11/10/16 10:21 11/10/16 08:15 11/10/16 10:21 11/10/16 08:15 Intake and Output: 11/10/16 11/10/16 06:59 18:59 Intake Total 600 Balance 600 - Medications Medications: Current Medications Acetaminophen (Tylenol 325mg Tab) 650 mg PO Q6H PRN PRN Reason: Fever >100.4 F Last Admin: 11/10/16 05:54 Dose: 650 mg Aspirin (Aspirin Chewable) 81 mg PO DAILY [facility] Last Admin: 11/10/16 10:19 Dose: 81 mg Atorvastatin Calcium (Lipitor) 10 mg PO DIN [facility] Last Admin: 11/09/16 17:25 Dose: 10 mg Carvedilol (Coreg) 6.25 mg PO BID [facility] Last Admin: 11/10/16 10:21 Dose: Not Given Docusate Sodium (Colace) 100 mg PO BID [facility] Last Admin: 11/10/16 10:20 Dose: 100 mg Ergocalciferol (Drisdol 50,000 Intl Units Cap) 1 cap PO Q7D [facility] Last Admin: 11/04/16 10:44 Dose: 1 cap Hydrochlorothiazide (Microzide) 12.5 mg PO DAILY [facility] Last Admin: 11/10/16 10:24 Dose: Not Given Cefepime HCl (Maxipime 2gm) 2 gm in 100 mls @ 100 mls/hr IVPB Q8 [facility] PRN Reason: Protocol Stop: 11/12/16 14:01 Last Admin: 11/10/16 05:56 Dose: 100 mls/hr Sodium Chloride (Sodium Chloride 0.45%) 1,000 mls @ 80 mls/hr IV .[id number] [facility] Stop: 11/11/16 12:00 Last Admin: 11/10/16 00:35 Dose: Not Given Insulin Detemir (Levemir) 10 unit SC DAILY [facility] Last Admin: 11/10/16 10:22 Dose: Not Given Insulin Human Regular (Humulin R Med) 0 units SC ACHS [facility] PRN Reason: Protocol Last Admin: 11/10/16 08:16 Dose: Not Given Losartan Potassium (Cozaar) 50 mg PO DAILY [facility] Last Admin: 11/10/16 10:21 Dose: Not Given Montelukast Sodium (Singulair) 10 mg PO HS [facility] Last Admin: 11/09/16 22:04 Dose: 10 mg Pantoprazole Sodium (Protonix Ec Tab) 40 mg PO 0600 [facility] Last Admin: 11/10/16 05:54 Dose: 40 mg - Labs Labs: 11/09/16 07:00 11/09/16 07:00 PT 10.7 Seconds (9.9-11.8) 11/03/16 22:36 INR 0.99 (0.93-1.08) 11/03/16 22:36 APTT 32.4 Seconds (23.7-30.8) H 11/03/16 22:36 - Constitutional Appears: Well, Non-toxic, No Acute Distress - Extremities Exam Additional comments: VASC: DP/PT pulses are non-palpable bilaterally, KETTLE HAND: > 3 sec to all digits, Temp gradient: cool to cool from proximal to distal, no pitting or non-pitting edema noted bilaterally DERM: hyperpigmented and necrotic 3rd digit with dorsum of the right forefoot wound, wound bed appears to have approximately 75% fibrosis and 25% granular base, no periwound erythema, minimal serosanguinous drainage, no active bleeding , no probe to bone, no ascending cellulitis, no undermining or tunneling, no clinical suspicion of active infection NEURO: Protective sensation grossly diminished ORTHO: no pain on palpation of the 3rd digit on the right foot - Neurological Exam Neurological Exam: Alert, Awake, Oriented x3 - Psychiatric Exam Psychiatric exam: Normal Affect, Normal Mood Assessment and Plan - Assessment and Plan (Free Text) Assessment: 81 y/o female seen at bedside for 1). gangrenous 3rd digit on the right foot 2) . open wound dailey grade 1 Plan: Patient seen and evaluated with attending, Dr. Arevalo Labs and vitals reviewed ; afebrile, WBC 9.4 Dressing changed using telfa, DSD to right foot MRA shows right leg anterior tibial occlusion, SFA stenosis MRI exam inconclusive - shows artifacts bone scan positive at 3rd digit right foot Patient to go for tentative arteriogram w/ vascular surgeon Dr. Martinez today discussed possible surgical options with family if there is sufficient blood flow after revasc. Patient to remain on IV abx Podiatry to follow patient while patient is in house <Clementine Arevalo - Last Filed: 11/11/16 16:32> Objective - Vital Signs/Intake and Output Vital Signs (last 24 hours): Temp Pulse Resp BP Pulse Ox 97.1 F L 66 18 117/86 100 11/11/16 07:00 11/11/16 11:08 11/11/16 07:00 11/11/16 11:08 11/11/16 07:00 Intake and Output: 11/11/16 11/11/16 06:59 18:59 Intake Total 240 Output Total 600 Balance -360 - Medications Medications: Current Medications Acetaminophen (Tylenol 325mg Tab) 650 mg PO Q6H PRN PRN Reason: Fever >100.4 F Last Admin: 11/11/16 07:05 Dose: 650 mg Aspirin (Aspirin Chewable) 81 mg PO DAILY [facility] Last Admin: 11/11/16 11:07 Dose: 81 mg Atorvastatin Calcium (Lipitor) 10 mg PO DIN [facility] Last Admin: 11/10/16 17:01 Dose: Not Given Carvedilol (Coreg) 6.25 mg PO BID [facility] Last Admin: 11/11/16 11:08 Dose: 6.25 mg Docusate Sodium (Colace) 100 mg PO BID [facility] Last Admin: 11/11/16 11:07 Dose: 100 mg Ergocalciferol (Drisdol 50,000 Intl Units Cap) 1 cap PO Q7D [facility] Last Admin: 11/11/16 11:10 Dose: 1 cap Hydrochlorothiazide (Microzide) 12.5 mg PO DAILY [facility] Last Admin: 11/11/16 11:08 Dose: 12.5 mg Cefepime HCl (Maxipime 2gm) 2 gm in 100 mls @ 100 mls/hr IVPB Q8 [facility] PRN Reason: Protocol Stop: 11/12/16 14:01 Last Admin: 11/11/16 13:03 Dose: 100 mls/hr Insulin Detemir (Levemir) 10 unit SC DAILY [facility] Last Admin: 11/11/16 11:11 Dose: Not Given Insulin Human Regular (Humulin R Med) 0 units SC ACHS [facility] PRN Reason: Protocol Last Admin: 11/11/16 12:03 Dose: Not Given Losartan Potassium (Cozaar) 50 mg PO DAILY [facility] Last Admin: 11/11/16 11:07 Dose: 50 mg Montelukast Sodium (Singulair) 10 mg PO HS [facility] Last Admin: 11/10/16 22:12 Dose: 10 mg Pantoprazole Sodium (Protonix Ec Tab) 40 mg PO 0600 [facility] Last Admin: 11/11/16 06:57 Dose: 40 mg - Labs Labs: 11/11/16 08:35 11/11/16 08:35 PT 10.7 Seconds (9.9-11.8) 11/03/16 22:36 INR 0.99 (0.93-1.08) 11/03/16 22:36 APTT 32.4 Seconds (23.7-30.8) H 11/03/16 22:36 Attending/Attestation - Attestation I have personally seen and examined this patient.: Yes I have fully participated in the care of the patient.: Yes I have reviewed all pertinent clinical information, including history, physical exam and plan: Yes
--- NOTE | 2016-11-10 14:17 | US ---
PROCEDURE: Right upper extremity venous US CLINICAL HISTORY: Arm pain and swelling Evaluate for deep venous thrombosis. PHYSICIAN(S): Cj Martinez M.D FINDINGS: The visualized rightinternal jugular vein is sonographically normal and compressible. No evidence of obstruction or thrombus is seen. The visualized segments of the right subclavian vein are patent with normal waveforms. No sonographic evidence of obstruction or thrombosis is seen. The visualized deep venous system of the proximal right upper extremity is sonographically normal and compressible. There is acute superficial thrombophlebitis in a segment of the right basilic vein just above the elbow. Is could be related to a recent vena puncture. IMPRESSION: 1. No sonographic evidence for deep venous thrombosis in the visualized segments of the right upper extremity. 2. Localized superficial thrombophlebitis in the right basilic vein above the elbow
--- NOTE | 2016-11-10 15:09 | PN ---
DATE: 11/10/2016 SUBJECTIVE: The patient is seen in bed, in no acute distress, seen early this morning. PHYSICAL EXAMINATION: VITAL SIGNS: Temperature is 100, blood pressure is 160/70, respiratory rate 18, and heart rate of 74. HEENT: Unremarkable. NECK: Supple. LUNGS: Decrease breath sounds. HEART: Normal S1 and S2. ABDOMEN: Soft and nontender. LABORATORY DATA: Reveals a white count of 9.4 and hemoglobin of 8. Coagulation is noted. Chemistry reveals BUN of 23 and creatinine of 0.9. Microbiology reveals right foot positive for Pseudomonas aeruginosa relatively sensitive organism, although it is resistant to Cipro. Review of orders reveals the patient to be on cefepime. ASSESSMENT AND PLAN: This is an 81-year-old with Pseudomonas right foot cellulitis and severe peripheral artery disease, osteomyelitis cannot be ruled out and bone scan is positive with a sed rate of 70 and C-reactive protein greater than 15, we will treat with prolonged antibiotics osteomyelitis. Dr. Alonso's note is reviewed and appreciated. MRI from the is reviewed and it is a limited study; however, the bone scan was positive. Tre Boss MD
--- NOTE | 2016-11-10 15:29 | CP.PCM.PN ---
<Goyo Lepe - Last Filed: 11/10/16 15:26> Subjective - Date & Time of Evaluation Date of Evaluation: 11/10/16 Time of Evaluation: 15:26 - Subjective Subjective: Patient has been seen and examined. ROS not obtained due to patients somnolence. Patient was hypertensive overnight at 189/82; was given hydralazine 10. Blood draws refused by patient's son. Objective - Vital Signs/Intake and Output Vital Signs (last 24 hours): Temp Pulse Resp BP Pulse Ox 100 F H 66 18 99/69 L 98 11/10/16 08:15 11/10/16 10:21 11/10/16 08:15 11/10/16 10:21 11/10/16 08:15 Intake and Output: 11/10/16 11/10/16 06:59 18:59 Intake Total 600 Balance 600 - Medications Medications: Current Medications Acetaminophen (Tylenol 325mg Tab) 650 mg PO Q6H PRN PRN Reason: Fever >100.4 F Last Admin: 11/10/16 05:54 Dose: 650 mg Aspirin (Aspirin Chewable) 81 mg PO DAILY [facility] Last Admin: 11/10/16 10:19 Dose: 81 mg Atorvastatin Calcium (Lipitor) 10 mg PO DIN [facility] Last Admin: 11/09/16 17:25 Dose: 10 mg Carvedilol (Coreg) 6.25 mg PO BID [facility] Last Admin: 11/10/16 10:21 Dose: Not Given Docusate Sodium (Colace) 100 mg PO BID [facility] Last Admin: 11/10/16 10:20 Dose: 100 mg Ergocalciferol (Drisdol 50,000 Intl Units Cap) 1 cap PO Q7D [facility] Last Admin: 11/04/16 10:44 Dose: 1 cap Hydrochlorothiazide (Microzide) 12.5 mg PO DAILY [facility] Last Admin: 11/10/16 10:24 Dose: Not Given Cefepime HCl (Maxipime 2gm) 2 gm in 100 mls @ 100 mls/hr IVPB Q8 [facility] PRN Reason: Protocol Stop: 11/12/16 14:01 Last Admin: 11/10/16 05:56 Dose: 100 mls/hr Sodium Chloride (Sodium Chloride 0.45%) 1,000 mls @ 80 mls/hr IV .[id number] [facility] Stop: 11/11/16 12:00 Last Admin: 11/10/16 00:35 Dose: Not Given Insulin Detemir (Levemir) 10 unit SC DAILY [facility] Last Admin: 11/10/16 10:22 Dose: Not Given Insulin Human Regular (Humulin R Med) 0 units SC ACHS [facility] PRN Reason: Protocol Last Admin: 11/10/16 08:16 Dose: Not Given Losartan Potassium (Cozaar) 50 mg PO DAILY [facility] Last Admin: 11/10/16 10:21 Dose: Not Given Montelukast Sodium (Singulair) 10 mg PO HS [facility] Last Admin: 11/09/16 22:04 Dose: 10 mg Pantoprazole Sodium (Protonix Ec Tab) 40 mg PO 0600 [facility] Last Admin: 11/10/16 05:54 Dose: 40 mg - Labs Labs: 11/09/16 07:00 11/09/16 07:00 PT 10.7 Seconds (9.9-11.8) 11/03/16 22:36 INR 0.99 (0.93-1.08) 11/03/16 22:36 APTT 32.4 Seconds (23.7-30.8) H 11/03/16 22:36 - Constitutional Appears: No Acute Distress, Cachectic - Head Exam Head Exam: ATRAUMATIC, NORMAL INSPECTION, NORMOCEPHALIC - Eye Exam Eye Exam: Normal appearance - ENT Exam ENT Exam: Mucous Membranes Moist - Respiratory Exam Respiratory Exam: Clear to Ausculation Bilateral - Cardiovascular Exam Cardiovascular Exam: RRR, +S1, +S2 - GI/Abdominal Exam GI & Abdominal Exam: Soft, Normal Bowel Sounds. absent: Tenderness, Organomegaly - Extremities Exam Extremities Exam: absent: Pedal Edema - Skin Additional comments: ": hyperpigmented and necrotic 3rd digit with dorsum of the right forefoot wound , wound bed appears to have approximately 75% fibrosis and 25% granular base, no periwound erythema, minimal serosanguinous drainage, no active bleeding, no probe to bone, no ascending cellulitis, no undermining or tunneling, no clinical suspicion of active infection" - Additional Findings Additional findings: Sleeping during exam Assessment and Plan - Assessment and Plan (Free Text) Assessment: 81F with PMH IDDM, HTN, HLD, CVA, presents for right 3rd toe discoloration, right distal foot ulcer, uncontrolled HTN, hyperglycemia Plan: Right distal foot ulcer near right 3rd toe/necrotic R 3rd toe: -Foot Xray: Showed soft tissue swelling w/o acute articular/osseous abnormality , and no signs of osteomyelitis. -Vacular consult ordered (Dr. Martinez) - recs appreciated. - Podiatry recs appreciated. - MRI shows increased signal density in Bone marrow but likely artifact - Bone scan reads positive three way bone scan - MRA read No evidence of iliac stenosis or occlusion. Focal stenosis in right proximal and distal SFA. Occluded anterior tibial. Single vessel runoff to left ankle via the peroneal. Anterior and posterior tibial arteries are occluded -schedule for arteriogram today. -Blood culture shows no growth after 4 days. Wound cultures show Pseudomonas A. - Continue Cefepime. Anemia of Chronic Disease -Consider Iron Supplementation -Monitor HgB. Transfuse if Hgb < 7 Hypertension: - C/w home meds carvedilol and losartan/hctz IDDM: - hold home oral antidiabetics - c.w home levemir and on ISS. -hold insulin for sugars > 400 Hx of HLD: - c/w lovastatin Hx of asthma: -c/w singulair DVT ppx: SCDs <Yara CAMACHO,[facility] - Last Filed: 11/11/16 18:24> Objective - Vital Signs/Intake and Output Vital Signs (last 24 hours): Temp Pulse Resp BP Pulse Ox 98.5 F 71 18 161/84 H 100 11/11/16 17:50 11/11/16 17:50 11/11/16 17:50 11/11/16 17:50 11/11/16 17:50 Intake and Output: 11/11/16 11/11/16 06:59 18:59 Intake Total 240 Output Total 600 Balance -360 - Medications Medications: Current Medications Acetaminophen (Tylenol 325mg Tab) 650 mg PO Q6H PRN PRN Reason: Fever >100.4 F Last Admin: 11/11/16 07:05 Dose: 650 mg Aspirin (Aspirin Chewable) 81 mg PO DAILY [facility] Last Admin: 11/11/16 11:07 Dose: 81 mg Atorvastatin Calcium (Lipitor) 10 mg PO DIN [facility] Last Admin: 11/10/16 17:01 Dose: Not Given Carvedilol (Coreg) 6.25 mg PO BID [facility] Last Admin: 11/11/16 11:08 Dose: 6.25 mg Docusate Sodium (Colace) 100 mg PO BID [facility] Last Admin: 11/11/16 11:07 Dose: 100 mg Ergocalciferol (Drisdol 50,000 Intl Units Cap) 1 cap PO Q7D [facility] Last Admin: 11/11/16 11:10 Dose: 1 cap Hydrochlorothiazide (Microzide) 12.5 mg PO DAILY [facility] Last Admin: 11/11/16 11:08 Dose: 12.5 mg Cefepime HCl (Maxipime 2gm) 2 gm in 100 mls @ 100 mls/hr IVPB Q8 [facility] PRN Reason: Protocol Stop: 11/12/16 14:01 Last Admin: 11/11/16 13:03 Dose: 100 mls/hr Insulin Detemir (Levemir) 10 unit SC DAILY [facility] Last Admin: 11/11/16 11:11 Dose: Not Given Insulin Human Regular (Humulin R Med) 0 units SC ACHS [facility] PRN Reason: Protocol Last Admin: 11/11/16 12:03 Dose: Not Given Losartan Potassium (Cozaar) 50 mg PO DAILY [facility] Last Admin: 11/11/16 11:07 Dose: 50 mg Montelukast Sodium (Singulair) 10 mg PO HS [facility] Last Admin: 11/10/16 22:12 Dose: 10 mg Pantoprazole Sodium (Protonix Ec Tab) 40 mg PO 0600 [facility] Last Admin: 11/11/16 06:57 Dose: 40 mg - Labs Labs: 11/11/16 08:35 11/11/16 08:35 PT 10.7 Seconds (9.9-11.8) 11/03/16 22:36 INR 0.99 (0.93-1.08) 11/03/16 22:36 APTT 32.4 Seconds (23.7-30.8) H 11/03/16 22:36 Attending/Attestation - Attestation I have personally seen and examined this patient.: Yes I have fully participated in the care of the patient.: Yes I have reviewed all pertinent clinical information, including history, physical exam and plan: Yes Notes (Text): 11/11/16 18:19 Patient seen and examined with resident. Agreed with resident assessment and plan. Patient is a 81 year old Female with PMH; IDDM, HTN, HLD, CVA, presents for right 3rd toe discoloration, right distal foot ulcer,Wound culture is positive for Pseudomonas.Lower extremity MRI was inconclusive for osteomyelitis. Bone scan is positive for distal third metatarsal.Venous Doppler is negative for DVT.MRA showed right superficial femoral arterial disease .Patient is for angiography today. Continue IV cefepime. ID follow up is appreciated. Management plan was discussed in detail with patient Education was provided.
[2016-11-10] MEDS ORDERED: Lidocaine 2% Inj (20ml) ONE (16:14)
[2016-11-10] MEDS ORDERED: Iodixanol 320 MG/ML 100 ML BOTTLE IV ONE (16:15)
[2016-11-10] MEDS ORDERED: Iodixanol 320 MG/ML 200 ML BOTTLE IV ONE (16:15)
[2016-11-10] MEDS ORDERED: Nitroglycerin 50mg in D5W 50 MG/250 ML BOTTLE IV ONE (16:15)
[2016-11-10] MEDS ORDERED: Midazolam 2 MG/2 ML VIAL ONE ×2 (16:15→17:22)
[2016-11-10] MEDS ORDERED: Labetalol 5 mg/ml Inj 20ML ONE (17:43)
[2016-11-10] MEDS ORDERED: Morphine 4 mg/ml ISec IM STA (19:37)
[2016-11-10] MEDS ORDERED: Morphine 2 mg/ml ISec ONE (19:40)
[2016-11-10] MEDS ORDERED: Morphine 4 mg/ml ISec IVP ONE (19:43)
[2016-11-11] MEDS: Sodium Chloride 0.45% 1,000 ML IV SCH ×2 (03:15→19:53)
[2016-11-11] MEDS: Cefepime IV 2 gm in NS 2 GM/100 ML BAG IVPB SCH ×3 (06:57→21:44)
[2016-11-11] MEDS: Pantoprazole 40 mg EC Tab PO SCH (06:57)
[2016-11-11] MEDS: Insulin Reg-MEDIUM-Coverage SC SCH ×4 (08:10→22:31)
[2016-11-11 08:39] LABS: BASO # 0.02 K/mm3 (0.0-2.0); BASO % 0.2 % (0.0-3.0); EOS # 0.4 (0.0-0.7); EOS % 3.7 % (1.5-5.0); GRAN # 7.27 (1.4-6.5); GRAN % 68.1 % (50.0-68.0); HEMATOCRIT 24.6 % (36.0-48.0); LYMPH # 1.5 (1.2-3.4); LYMPH % 13.8 % (22.0-35.0); MEAN CELL VOLUME 80.1 fl (80.0-105.0); MEAN CORPUSCULAR HEMOGLOBIN 26.1 pg (25.0-35.0); MEAN CORPUSCULAR HGB CONC 32.5 g/dl (31.0-37.0); MEAN PLATELET VOLUME 9.4 fl (7.0-11.0); MONO # 1.5 (0.1-0.6); MONO % 14.2 % (1.0-6.0); RED CELL DISTRIBUTION WIDTH 14.3 % (11.5-14.5); WHITE BLOOD COUNT 10.7 10^3/ul (4.5-11.0)
[2016-11-11 08:56] LABS: ALB/GLOB RATIO 0.8 (1.1-1.8); BILIRUBIN,TOTAL 0.5 mg/dL (0.2-1.3); CALCIUM 8.6 mg/dL (8.4-10.5); POTASSIUM 4.1 mmol/L (3.6-5.0); TOTAL PROTEIN 5.7 g/dL (5.8-8.3)
--- NOTE | 2016-11-11 10:10 | VASCULAR ---
PROCEDURE: 1. Abdominal aortogram and bilateral lower extremity runoff with right selective views. 2. Right SFA and popliteal artery silver Hawk atherectomy and drug-eluting balloon angioplasty 3. Right proximal peroneal artery angioplasty. HISTORY: Severe peripheral vascular disease. Gangrene right foot. Diabetes. PHYSICIAN(S): Cj Martinez M.D. TECHNIQUE: The relative risks and indications of the procedure were explained thoroughly to the family and consent obtained. The patient was hydrated prior to the procedure and the appropriate labs drawn. The patient was placed supine on the arteriogram table and the left groin prepped and draped in the usual sterile fashion. Conscious sedation and monitoring were provided throughout the procedure by a nurse. Via a left common femoral artery approach, a 5 Lebanese sheath was placed in the left groin. Through the sheath and over a guidewire, a 5 Lebanese flush catheter was placed in the abdominal aorta at the level of the renal arteries and a PA DSA abdominal aortogram performed. The catheter was pulled down to the aortic bifurcation and bilateral oblique DSA pelvic arteriograms performed. Overlapping bilateral lower extremity DSA arteriograms were obtained from the inguinal ligaments to the feet. A 0.035 angled Glidewire was advanced over the bifurcation and placed in the distal right SFA. A 7 Lebanese 45 cm destination sheath was placed in the right external iliac artery.. Heparin 5000 units IV and nitroglycerin in 250 mcg aliquots were given. The multi focal disease in the right SFA and popliteal arteries were crossed with a 5 Lebanese catheter and angled Glidewire. 0.014 support wire was placed in the proximal right peroneal artery at the trifurcation. The terminal right popliteal artery and origin of the right peroneal artery was dilated with a 3.0 mm balloon. A good angiographic result was obtained. The below knee right popliteal artery was dilated with a 4 mm drug coated balloon. Silver Hawk atherectomy of the proximal right SFA, distal right SFA, and right popliteal artery above the knee was performed with an LX catheter. Approximately 6 passes were performed. The right above knee popliteal artery and distal right SFA were dilated with a 5 mm drug coated balloon. The proximal right SFA was dilated with a 6 mm drug-eluting balloon. Completion arteriograms were obtained. The sheath was removed hemostasis obtained. The patient tolerated the procedure well. FINDINGS: There are single renal arteries bilaterally. Bilateral 60-70 percent stenoses in the proximal renal arteries are present. The nephrograms are symmetric in appearance.. Calcified smooth disease of the infrarenal abdominal aorta is present. The aortic bifurcation is patent. The common and external iliac arteries are patent bilaterally. The internal iliac arteries are patent bilaterally. Right lower extremity: The right common femoral artery is patent. The right profunda femoral artery is enlarged. There is 80 percent smooth disease of the proximal right SFA. There is multifocal severe disease of the distal right SFA and right popliteal artery above the knee. There is smooth tapered severe disease of the right popliteal artery below the knee. There is severe right trifurcation and tibial occlusive disease. All 3 tibial arteries are occluded proximally. No named tibial vessels are seen distally or in the foot. There is severe right pedal occlusive disease. Left lower extremity: Left common femoral artery is patent. The left profunda femoral artery is patent. The left superficial femoral artery is patent with a stent in the adductor canal. No significant re- stenosis is seen. The left popliteal artery is patent and smoothly disease. There is severe left trifurcation and tibial occlusive disease. There is 1 vessel runoff via the left peroneal artery. Moderate stenoses are seen in its mid segment. The left anterior tibial and posterior tibial arteries are occluded.. IMPRESSION: 1.Successful right SFA and popliteal artery silver Hawk atherectomy and drug-eluting balloon angioplasty. 2. Successful right peroneal artery origin angioplasty. 3. Severe bilateral trifurcation, tibial, and pedal occlusive disease. On the right, all 3 tibial vessels are occluded proximally. No named distal vessels are noted. 4. Bilateral 60-70 percent proximal renal artery stenoses.
--- NOTE | 2016-11-11 11:09 | CP.PCM.PN ---
<Debo Alonso - Last Filed: 11/11/16 11:05> Subjective - Date & Time of Evaluation Date of Evaluation: 11/11/16 Time of Evaluation: 11:05 - Subjective Subjective: Podiatry Progress Note - Dr. Garrido 81 y/o female seen at bedside for 3rd gangrenous digit and a dailey grade 1 ulcer on the dorsum of the right foot. Patient is accompanied by her family and just had an angioplasty and artherectomy done by Dr. Martinez yesterday. Patient is AAOx3 and is in NAD. Patient denies of any acute overnight events. Patient denies of any pain in her right foot. Patient denies of any F/N/V/C/SOB/CP today. No other pedal complaints at this time. Objective - Vital Signs/Intake and Output Vital Signs (last 24 hours): Temp Pulse Resp BP Pulse Ox 97.1 F L 61 18 169/75 H 100 11/11/16 07:00 11/11/16 07:00 11/11/16 07:00 11/11/16 07:00 11/11/16 07:00 - Medications Medications: Current Medications Acetaminophen (Tylenol 325mg Tab) 650 mg PO Q6H PRN PRN Reason: Fever >100.4 F Last Admin: 11/11/16 07:05 Dose: 650 mg Aspirin (Aspirin Chewable) 81 mg PO DAILY [facility] Last Admin: 11/10/16 10:19 Dose: 81 mg Atorvastatin Calcium (Lipitor) 10 mg PO DIN [facility] Last Admin: 11/10/16 17:01 Dose: Not Given Carvedilol (Coreg) 6.25 mg PO BID [facility] Last Admin: 11/10/16 18:00 Dose: Not Given Docusate Sodium (Colace) 100 mg PO BID [facility] Last Admin: 11/10/16 18:00 Dose: Not Given Ergocalciferol (Drisdol 50,000 Intl Units Cap) 1 cap PO Q7D [facility] Last Admin: 11/04/16 10:44 Dose: 1 cap Hydrochlorothiazide (Microzide) 12.5 mg PO DAILY [facility] Last Admin: 11/10/16 10:24 Dose: Not Given Cefepime HCl (Maxipime 2gm) 2 gm in 100 mls @ 100 mls/hr IVPB Q8 [facility] PRN Reason: Protocol Stop: 11/12/16 14:01 Last Admin: 11/11/16 06:57 Dose: 100 mls/hr Sodium Chloride (Sodium Chloride 0.45%) 1,000 mls @ 80 mls/hr IV .[id number] [facility] Stop: 11/11/16 12:00 Last Admin: 11/11/16 03:15 Dose: 80 mls/hr Insulin Detemir (Levemir) 10 unit SC DAILY [facility] Last Admin: 11/10/16 10:22 Dose: Not Given Insulin Human Regular (Humulin R Med) 0 units SC ACHS [facility] PRN Reason: Protocol Last Admin: 11/10/16 21:56 Dose: Not Given Losartan Potassium (Cozaar) 50 mg PO DAILY [facility] Last Admin: 11/10/16 10:21 Dose: Not Given Montelukast Sodium (Singulair) 10 mg PO HS [facility] Last Admin: 11/10/16 22:12 Dose: 10 mg Pantoprazole Sodium (Protonix Ec Tab) 40 mg PO 0600 [facility] Last Admin: 11/11/16 06:57 Dose: 40 mg - Labs Labs: 11/11/16 08:35 11/11/16 08:35 PT 10.7 Seconds (9.9-11.8) 11/03/16 22:36 INR 0.99 (0.93-1.08) 11/03/16 22:36 APTT 32.4 Seconds (23.7-30.8) H 11/03/16 22:36 - Constitutional Appears: Well, Non-toxic, No Acute Distress - Extremities Exam Additional comments: VASC: DP/PT pulses are non-palpable bilaterally, EXTENSION AGENT: > 3 sec to all digits, Temp gradient: cool to cool from proximal to distal, no pitting or non-pitting edema noted bilaterally DERM: hyperpigmented and necrotic 3rd digit with dorsum of the right forefoot wound, wound bed appears to have approximately 75% fibrosis and 25% granular base, no periwound erythema, minimal serosanguinous drainage, no active bleeding , no probe to bone, no ascending cellulitis, no undermining or tunneling, no clinical suspicion of active infection NEURO: Protective sensation grossly diminished ORTHO: no pain on palpation of the 3rd digit on the right foot - Neurological Exam Neurological Exam: Alert, Awake, Oriented x3 - Psychiatric Exam Psychiatric exam: Normal Affect, Normal Mood Assessment and Plan - Assessment and Plan (Free Text) Assessment: 81 y/o female seen at bedside for 1). gangrenous 3rd digit on the right foot 2) . open wound dailey grade 1 Plan: Patient seen and evaluated discussed in detail with attending Dr. 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 and angioplasty of RLE, shows all 3 tibial vessels occluded MRI exam inconclusive - shows artifacts bone scan positive at 3rd digit right foot discussed likely surgical intervention early next week for amputation of right foot 3rd digit Patient to remain on IV abx as per ID Podiatry to follow patient while patient is in house <Marquez Garrido - Last Filed: 11/12/16 13:40> Objective - Vital Signs/Intake and Output Vital Signs (last 24 hours): Temp Pulse Resp BP Pulse Ox 100.9 F H 76 20 149/63 97 11/12/16 07:30 11/12/16 11:13 11/12/16 07:30 11/12/16 11:13 11/12/16 07:30 Intake and Output: 11/12/16 11/12/16 06:59 18:59 Intake Total 60 Output Total 400 Balance -340 - Medications Medications: Current Medications Acetaminophen (Tylenol 325mg Tab) 650 mg PO Q6H PRN PRN Reason: Fever >100.4 F Last Admin: 11/12/16 05:46 Dose: 650 mg Aspirin (Aspirin Chewable) 81 mg PO DAILY [facility] Last Admin: 11/12/16 11:12 Dose: 81 mg Atorvastatin Calcium (Lipitor) 10 mg PO DIN [facility] Last Admin: 11/11/16 19:50 Dose: 10 mg Carvedilol (Coreg) 6.25 mg PO BID [facility] Last Admin: 11/12/16 11:13 Dose: 6.25 mg Docusate Sodium (Colace) 100 mg PO BID [facility] Last Admin: 11/12/16 11:12 Dose: 100 mg Ergocalciferol (Drisdol 50,000 Intl Units Cap) 1 cap PO Q7D [facility] Last Admin: 11/11/16 11:10 Dose: 1 cap Hydrochlorothiazide (Microzide) 12.5 mg PO DAILY [facility] Last Admin: 11/12/16 11:12 Dose: 12.5 mg Meropenem 1g/NS 100mL IVPB (Meropenem 1g/Ns 100ml Ivpb) 1 gm in 100 mls @ 100 mls/hr IVPB Q12 [facility] PRN Reason: Protocol Stop: 11/21/16 11:08 Last Admin: 11/12/16 12:48 Dose: 100 mls/hr Linezolid (Zyvox 600mg/300ml D5w) 600 mg in 300 mls @ 200 mls/hr IVPB Q12 [facility] PRN Reason: Protocol Stop: 11/21/16 11:09 Insulin Detemir (Levemir) 10 unit SC DAILY [facility] Last Admin: 11/12/16 11:14 Dose: 10 unit Insulin Human Regular (Humulin R Med) 0 units SC ACHS [facility] PRN Reason: Protocol Last Admin: 11/11/16 22:31 Dose: Not Given Losartan Potassium (Cozaar) 50 mg PO DAILY [facility] Last Admin: 11/12/16 11:13 Dose: 50 mg Montelukast Sodium (Singulair) 10 mg PO HS [facility] Last Admin: 11/11/16 21:07 Dose: 10 mg Pantoprazole Sodium (Protonix Ec Tab) 40 mg PO 0600 [facility] Last Admin: 11/12/16 05:22 Dose: 40 mg - Labs Labs: 11/11/16 08:35 11/11/16 08:35 PT 10.7 Seconds (9.9-11.8) 11/03/16 22:36 INR 0.99 (0.93-1.08) 11/03/16 22:36 APTT 32.4 Seconds (23.7-30.8) H 11/03/16 22:36 Attending/Attestation - Attestation I have personally seen and examined this patient.: Yes I have fully participated in the care of the patient.: Yes I have reviewed all pertinent clinical information, including history, physical exam and plan: Yes
[2016-11-11] MEDS: Ergocalciferol 50,000 Intl Units Cap PO SCH (11:10)
[2016-11-11] MEDS: Insulin Detemir 100 units/ml Vial (Levemir) SC SCH (11:11)
--- NOTE | 2016-11-11 12:03 | PN ---
DATE: 11/11/2016 SUBJECTIVE: The patient is seen earlier this morning. She is weak overall. No fevers documented and no chills. PHYSICAL EXAMINATION VITAL SIGNS: Temperature is 98, blood pressure is 160/70, and respiratory rate of 18. HEENT: Examination of HEENT is unremarkable. NECK: Supple. LUNGS: Decreased breath sounds. HEART: Normal S1 and S2. ABDOMEN: Soft and nontender. LABORATORY DATA: Examination reveals a white count of 10,000, hemoglobin of 8, and platelets of 274. BUN of 25 and creatinine of 1.2. Procalcitonin is 0.13. Culture of the foot is positive for Pseudomonas aeruginosa, heavy growth. Blood cultures are negative. ASSESSMENT AND PLAN: She is an 81-year-old female with diabetes, hypertension, hyperlipidemia, and cerebrovascular accident presented with third toe discoloration, right digital foot ulcer, uncontrolled hypertension and hyperglycemia, with a Pseudomonas of right foot cellulitis with sever peripheral artery disease, osteomyelitis, and positive bone scan. She is currently on cefepime, will need 4 weeks of antibiotics, weekly CBC, SMA 18, sedimentation rate, and C reactive protein. The patient had procedure by Dr. Cj Martinez yesterday, an angiogram. We will follow closely with you. The patient had an arteriogram yesterday by Dr. Cj Martinez. Will continue with the antibiotics of cefepime. Tre Boss MD
--- NOTE | 2016-11-11 17:23 | CP.PCM.PN ---
<Goyo Lepe - Last Filed: 11/11/16 22:03> Subjective - Date & Time of Evaluation Date of Evaluation: 11/11/16 Time of Evaluation: 08:00 - Subjective Subjective: Patient has been seen and examined. Per nursing staff patient's family was disruptive to patient in bed 1 overnight. No other overnight events reported. Denies any fever, chills, SOB, CP, N/V/D, constipation, abdominal pain, changes in urinary or bowel habits, or lower extremity pain. Objective - Vital Signs/Intake and Output Vital Signs (last 24 hours): Temp Pulse Resp BP Pulse Ox 97.1 F L 66 18 117/86 100 11/11/16 07:00 11/11/16 11:08 11/11/16 07:00 11/11/16 11:08 11/11/16 07:00 Intake and Output: 11/11/16 11/11/16 06:59 18:59 Intake Total 240 Output Total 600 Balance -360 - Medications Medications: Current Medications Acetaminophen (Tylenol 325mg Tab) 650 mg PO Q6H PRN PRN Reason: Fever >100.4 F Last Admin: 11/11/16 07:05 Dose: 650 mg Aspirin (Aspirin Chewable) 81 mg PO DAILY [facility] Last Admin: 11/11/16 11:07 Dose: 81 mg Atorvastatin Calcium (Lipitor) 10 mg PO DIN [facility] Last Admin: 11/10/16 17:01 Dose: Not Given Carvedilol (Coreg) 6.25 mg PO BID [facility] Last Admin: 11/11/16 11:08 Dose: 6.25 mg Docusate Sodium (Colace) 100 mg PO BID [facility] Last Admin: 11/11/16 11:07 Dose: 100 mg Ergocalciferol (Drisdol 50,000 Intl Units Cap) 1 cap PO Q7D [facility] Last Admin: 11/11/16 11:10 Dose: 1 cap Hydrochlorothiazide (Microzide) 12.5 mg PO DAILY [facility] Last Admin: 11/11/16 11:08 Dose: 12.5 mg Cefepime HCl (Maxipime 2gm) 2 gm in 100 mls @ 100 mls/hr IVPB Q8 [facility] PRN Reason: Protocol Stop: 11/12/16 14:01 Last Admin: 11/11/16 13:03 Dose: 100 mls/hr Insulin Detemir (Levemir) 10 unit SC DAILY [facility] Last Admin: 11/11/16 11:11 Dose: Not Given Insulin Human Regular (Humulin R Med) 0 units SC ACHS [facility] PRN Reason: Protocol Last Admin: 11/11/16 12:03 Dose: Not Given Losartan Potassium (Cozaar) 50 mg PO DAILY [facility] Last Admin: 11/11/16 11:07 Dose: 50 mg Montelukast Sodium (Singulair) 10 mg PO HS [facility] Last Admin: 11/10/16 22:12 Dose: 10 mg Pantoprazole Sodium (Protonix Ec Tab) 40 mg PO 0600 [facility] Last Admin: 11/11/16 06:57 Dose: 40 mg - Labs Labs: 11/11/16 08:35 11/11/16 08:35 PT 10.7 Seconds (9.9-11.8) 11/03/16 22:36 INR 0.99 (0.93-1.08) 11/03/16 22:36 APTT 32.4 Seconds (23.7-30.8) H 11/03/16 22:36 - Constitutional Appears: Well, No Acute Distress - Head Exam Head Exam: ATRAUMATIC, NORMAL INSPECTION, NORMOCEPHALIC - 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 absent: Rhonchi - Cardiovascular Exam Cardiovascular Exam: +S1, +S2. absent: Murmur - GI/Abdominal Exam GI & Abdominal Exam: Soft, Normal Bowel Sounds. absent: Tenderness - Extremities Exam Extremities Exam: absent: Pedal Edema Additional comments: R necrotic hypepigmented R 3rd toe with proximal ulceration. Left inguinal wound at catheter insertion site. Wound clean, dry, with no discharge. - Neurological Exam Neurological Exam: Alert, Awake, Oriented x3 - Psychiatric Exam Psychiatric exam: Normal Affect, Normal Mood - Skin Skin Exam: Dry, Intact, Normal Color Additional comments: Cool lower extremities. Assessment and Plan - Assessment and Plan (Free Text) Assessment: 81F with PMH IDDM, HTN, HLD, CVA, presents for right 3rd toe discoloration, right distal foot ulcer, uncontrolled HTN, hyperglycemia Plan: Right distal foot ulcer near right 3rd toe/necrotic R 3rd toe: -Foot Xray: Showed soft tissue swelling w/o acute articular/osseous abnormality , and no signs of osteomyelitis. -Vacular consult ordered (Dr. Martinez) - recs appreciated. - Podiatry recs appreciated. - MRI shows increased signal density in Bone marrow but likely artifact - Bone scan positive - MRA read No evidence of iliac stenosis or occlusion. Focal stenosis in right proximal and distal SFA. Occluded anterior tibial. Single vessel runoff to left ankle via the peroneal. Anterior and posterior tibial arteries are occluded -went for arteriogram today -Blood culture shows no growth after 4 days. Wound cultures show Pseudomonas A. - Cont. cefepime. Per ID, patient will need 4 weeks of antibiotics, weekly CBC , SMA 18, sedimentation rate, and CRP. -Per Pod. Possible amputation of right 3rd toe early next week. Anemia of Chronic Disease -Consider Iron Supplementation -Monitor HgB. Transfuse if Hgb < 7 -consent in chart. Hypertension: - C/w home meds carvedilol and losartan/hctz IDDM: - hold home oral antidiabetics - c.w home levemir and on ISS. -hold insulin for sugars > 400 Hx of HLD: - c/w lovastatin Hx of asthma: -c/w singulair DVT ppx: SCDs Patient seen, examined, and reviewed with Attending Goyo Lepe PGY-1 <Yara CAMACHO,[facility] - Last Filed: 11/14/16 17:17> Objective - Vital Signs/Intake and Output Vital Signs (last 24 hours): Temp Pulse Resp BP Pulse Ox 98.1 F 60 18 166/71 H 99 11/14/16 16:00 11/14/16 16:00 11/14/16 16:00 11/14/16 16:00 11/14/16 16:00 Intake and Output: 11/14/16 11/14/16 06:59 18:59 Intake Total 120 360 Output Total 1200 300 Balance -1080 60 - Medications Medications: Current Medications Acetaminophen (Tylenol 325mg Tab) 650 mg PO Q6H PRN PRN Reason: Fever >100.4 F Last Admin: 11/14/16 05:05 Dose: 650 mg Aspirin (Aspirin Chewable) 81 mg PO DAILY [facility] Last Admin: 11/14/16 09:30 Dose: 81 mg Atorvastatin Calcium (Lipitor) 10 mg PO DIN [facility] Last Admin: 11/13/16 18:35 Dose: 10 mg Carvedilol (Coreg) 6.25 mg PO BID [facility] Last Admin: 11/14/16 09:30 Dose: 6.25 mg Docusate Sodium (Colace) 100 mg PO BID [facility] Last Admin: 11/14/16 09:30 Dose: Not Given Dronabinol (Marinol) 2.5 mg PO BID [facility] Last Admin: 11/14/16 12:20 Dose: 2.5 mg Ergocalciferol (Drisdol 50,000 Intl Units Cap) 1 cap PO Q7D [facility] Last Admin: 11/11/16 11:10 Dose: 1 cap Hydrochlorothiazide (Microzide) 12.5 mg PO DAILY [facility] Last Admin: 11/14/16 09:31 Dose: 12.5 mg Meropenem 1g/NS 100mL IVPB (Meropenem 1g/Ns 100ml Ivpb) 1 gm in 100 mls @ 100 mls/hr IVPB Q12 [facility] PRN Reason: Protocol Stop: 11/21/16 11:08 Last Admin: 11/14/16 09:30 Dose: 100 mls/hr Linezolid (Zyvox 600mg/300ml D5w) 600 mg in 300 mls @ 200 mls/hr IVPB Q12 [facility] PRN Reason: Protocol Stop: 11/21/16 11:09 Last Admin: 11/14/16 10:59 Dose: 200 mls/hr Insulin Detemir (Levemir) 10 unit SC DAILY [facility] Last Admin: 11/12/16 11:14 Dose: 10 unit Insulin Human Regular (Humulin R Med) 0 units SC ACHS [facility] PRN Reason: Protocol Last Admin: 11/14/16 13:31 Dose: Not Given Losartan Potassium (Cozaar) 50 mg PO DAILY [facility] Last Admin: 11/14/16 09:31 Dose: 50 mg Montelukast Sodium (Singulair) 10 mg PO HS [facility] Last Admin: 11/13/16 21:52 Dose: 10 mg Oxycodone/Acetaminophen (Percocet 5/325 Mg Tab) 1 tab PO Q6H PRN PRN Reason: Pain, severe (8-10) Stop: 11/17/16 09:39 Pantoprazole Sodium (Protonix Ec Tab) 40 mg PO 0600 [facility] Last Admin: 11/14/16 05:05 Dose: 40 mg - Labs Labs: 11/14/16 10:31 11/14/16 10:31 PT 10.7 Seconds (9.9-11.8) 11/03/16 22:36 INR 0.99 (0.93-1.08) 11/03/16 22:36 APTT 32.4 Seconds (23.7-30.8) H 11/03/16 22:36 Attending/Attestation - Attestation I have personally seen and examined this patient.: Yes I have fully participated in the care of the patient.: Yes I have reviewed all pertinent clinical information, including history, physical exam and plan: Yes Notes (Text): 11/14/16 17:15 Patient was seen and examined with medical field representative. Agreed with resident assessment and plan. 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 Cj Martinez and she is SP angioplasty yesterday , Podiatry is planning for toe amputation next week . Management plan was discussed in detail with patient family. Education was provided.
[2016-11-12] MEDS: Cefepime IV 2 gm in NS 2 GM/100 ML BAG IVPB SCH (05:22)
[2016-11-12] MEDS: Pantoprazole 40 mg EC Tab PO SCH (05:22)
[2016-11-12] MEDS: Insulin Reg-MEDIUM-Coverage SC SCH ×4 (08:00→22:34)
[2016-11-12] MEDS: Insulin Detemir 100 units/ml Vial (Levemir) SC SCH (11:14)
[2016-11-12] MEDS: Meropenem 1g/NS 100mL IVPB 1 GM/100 ML PIGGYBACK IVPB SCH (12:48)
--- NOTE | 2016-11-12 13:53 | PN ---
DATE: 11/12/2016 SUBJECTIVE: The patient is in bed, in no acute distress, was seen earlier in 570. PHYSICAL EXAMINATION: VITAL SIGNS: Temperature is 98, blood pressure is 120/70, and respiratory rate 16. HEENT: Unremarkable. NECK: Supple. LUNGS: Have decreased breath sounds. HEART: Normal S1 and S2. ABDOMEN: Soft and nontender. LABORATORY EXAMINATION: Reveals the white count is 10,000, BUN is 25, and creatinine of 1.2. Procalcitonin is noted. ASSESSMENT AND PLAN: An 81-year-old female seen earlier today in 570, bed 2, with history of diabetes, hypertension, hyperlipidemia, and cerebrovascular accident, presented with a third toe discoloration and right digital foot ulcer, uncontrolled hypertension, hyperglycemia, Pseudomonas right foot cellulitis, and peripheral artery disease and osteomyelitis and a positive bone scan on cefepime now. This morning, the patient has had new fever of 100.9. We will repeat ocasio cultures, chest x-ray and upgrade the antibiotics to Zyvox since there is renal insufficiency and meropenem, and etiology of this morning's fever to be determined. We will discontinue the cefepime, and we will follow closely with you. We will repeat ocasio cultures, blood, urine, sputum, urinalysis and start empiric Zyvox and meropenem. Tre Boss MD
--- NOTE | 2016-11-12 15:13 | CP.PCM.PN ---
Subjective - Date & Time of Evaluation Date of Evaluation: 11/12/16 Time of Evaluation: 09:00 - Subjective Subjective: Patient seen and examined at bedside. Complains of poor appetite. Febrile at 100.9 this morning. Denies any cough or dysuria. Denies any new complaints. Review of Systems - Review of Systems All systems: reviewed and no additional remarkable complaints except - Constitutional Constitutional: Fever. absent: Chills - EENT Ears: absent: Dizziness Nose/Mouth/Throat: absent: Nasal Congestion - Cardiovascular Cardiovascular: absent: Chest Pain, Dyspnea - Respiratory Respiratory: absent: Cough, Dyspnea - Gastrointestinal Gastrointestinal: As Per HPI. absent: Abdominal Pain, Nausea, Vomiting - Genitourinary Genitourinary: absent: Dysuria - Musculoskeletal Musculoskeletal: absent: Back Pain - Psychiatric Psychiatric: absent: Anxiety Objective - Vital Signs/Intake and Output Vital Signs (last 24 hours): Temp Pulse Resp BP Pulse Ox 100.9 F H 76 20 149/63 97 11/12/16 07:30 11/12/16 11:13 11/12/16 07:30 11/12/16 11:13 11/12/16 07:30 Intake and Output: 11/12/16 11/12/16 06:59 18:59 Intake Total 60 Output Total 400 Balance -340 - Medications Medications: Current Medications Acetaminophen (Tylenol 325mg Tab) 650 mg PO Q6H PRN PRN Reason: Fever >100.4 F Last Admin: 11/12/16 05:46 Dose: 650 mg Aspirin (Aspirin Chewable) 81 mg PO DAILY [facility] Last Admin: 11/12/16 11:12 Dose: 81 mg Atorvastatin Calcium (Lipitor) 10 mg PO DIN [facility] Last Admin: 11/11/16 19:50 Dose: 10 mg Carvedilol (Coreg) 6.25 mg PO BID [facility] Last Admin: 11/12/16 11:13 Dose: 6.25 mg Docusate Sodium (Colace) 100 mg PO BID [facility] Last Admin: 11/12/16 11:12 Dose: 100 mg Ergocalciferol (Drisdol 50,000 Intl Units Cap) 1 cap PO Q7D [facility] Last Admin: 11/11/16 11:10 Dose: 1 cap Hydrochlorothiazide (Microzide) 12.5 mg PO DAILY [facility] Last Admin: 11/12/16 11:12 Dose: 12.5 mg Meropenem 1g/NS 100mL IVPB (Meropenem 1g/Ns 100ml Ivpb) 1 gm in 100 mls @ 100 mls/hr IVPB Q12 [facility] PRN Reason: Protocol Stop: 11/21/16 11:08 Last Admin: 11/12/16 12:48 Dose: 100 mls/hr Linezolid (Zyvox 600mg/300ml D5w) 600 mg in 300 mls @ 200 mls/hr IVPB Q12 [facility] PRN Reason: Protocol Stop: 11/21/16 11:09 Insulin Detemir (Levemir) 10 unit SC DAILY [facility] Last Admin: 11/12/16 11:14 Dose: 10 unit Insulin Human Regular (Humulin R Med) 0 units SC ACHS [facility] PRN Reason: Protocol Last Admin: 11/11/16 22:31 Dose: Not Given Losartan Potassium (Cozaar) 50 mg PO DAILY [facility] Last Admin: 11/12/16 11:13 Dose: 50 mg Montelukast Sodium (Singulair) 10 mg PO HS [facility] Last Admin: 11/11/16 21:07 Dose: 10 mg Pantoprazole Sodium (Protonix Ec Tab) 40 mg PO 0600 [facility] Last Admin: 11/12/16 05:22 Dose: 40 mg - Labs Labs: 11/11/16 08:35 11/11/16 08:35 PT 10.7 Seconds (9.9-11.8) 11/03/16 22:36 INR 0.99 (0.93-1.08) 11/03/16 22:36 APTT 32.4 Seconds (23.7-30.8) H 11/03/16 22:36 - Constitutional Appears: Well, No Acute Distress - Head Exam Head Exam: NORMAL INSPECTION - Eye Exam Eye Exam: EOMI - ENT Exam ENT Exam: Normal Exam - Respiratory Exam Respiratory Exam: Clear to Ausculation Bilateral. absent: Rales, Wheezes - Cardiovascular Exam Cardiovascular Exam: REGULAR RHYTHM, +S1, +S2 - GI/Abdominal Exam GI & Abdominal Exam: Soft, Normal Bowel Sounds. absent: Tenderness, Organomegaly - Extremities Exam Extremities Exam: Normal Inspection Additional comments: right foot with dressing - Neurological Exam Neurological Exam: Alert, Awake - Psychiatric Exam Psychiatric exam: Normal Affect Assessment and Plan - Assessment and Plan (Free Text) Plan: This is a 81 year old female with past medical history of hypertension, diabetes , and CVA who presented with right distal foot ulceration. 1. Right foot ulceration/cellulitis with necrotic 3rd toe - Foot xray showed soft tissue swelling without acute articular/osseous abnormality. MRI showed increased signal density in bone marrow but likely artifact. This was followed up with bone scan which was positive for OM. Podiatry and ID are following. Wound culture is growing Pseudomona Aeuriginosa. Continue with IV antibiotics. Plan is for possible amputation of right 3rd toe early next week. 2. PAD - MRI showed no evidence of iliac stenosis or occlusion but with focal stenosis in right proximal and distal SFA, occluded anterior tibial and single vessel runoff to left ankle via the peroneal; anterior and posterior tibial arteries are occluded. Vascular evaluation was appreciated and patient is s/p arteriogram. 3. Fever - Repeat septic workup is ordered. Continue with antibiotics as per ID. 4. Anemia - Will continue to monitor closely and transfuse as needed. Today's labs were pending. 5. Hypertension - Continue with coreg, losartan and HCTZ. 6. Diabetes - Patient is on levemir and insulin ss. 7. History of CVA - Patient is on aspirin and statin. Continue with protonix for GI prophylaxis and SCDs for DVT prophylaxis.
--- NOTE | 2016-11-12 17:20 | RAD ---
HISTORY: fever COMPARISON: Comparison chest dated 11/03/2016 FINDINGS: LUNGS: There is silhouetting of the left hemidiaphragm which could be due to left lower lobe consolidation/ atelectasis and effusion. Suspect minor right basilar atelectasis with questionable tiny right effusion. PLEURA: No significant pleural effusion identified, no pneumothorax apparent. CARDIOVASCULAR: Cardiomegaly. The OSSEOUS STRUCTURES: No significant abnormalities. VISUALIZED UPPER ABDOMEN: Normal. OTHER FINDINGS: None. IMPRESSION: There is silhouetting of the left hemidiaphragm which could be due to left lower lobe consolidation/ atelectasis and effusion. Suspect minor right basilar atelectasis with questionable tiny right effusion. Open
[2016-11-12] MEDS: Linezolid 600 mg in D5W 300 ml 600 MG/300 ML BAG IVPB SCH (17:28)
--- NOTE | 2016-11-12 19:59 | PN ---
SUBJECTIVE: An 81-year-old Bangladeshi speaking female who seen at bedside for continued evaluation and management of gangrenous left third digit and a diabetic ulceration with a dorsum of the right foot. I spoke with Dr. Cj Martinez and vascular studies were discussed. The patient has extremely compromised lower extremity perfusion and any type of ablative surgery has a high probability of non-healing, which would require further proximal amputation. The patient is not a surgical candidate due to her severely compromised lower extremity perfusion. PHYSICAL EXAMINATION: VITAL SIGNS: Revealed temperature of 100.9, pulse rate of 70, blood pressure 161/84. LABORATORY FINDINGS: Revealed white count of 10.7, hemoglobin of 8, hematocrit of 24.6, and platelet count of 374. Most recent microbiology report reveals pseudomonas growth. OBJECTIVE: Nonpalpable pedal pulses noted bilaterally. Capillary filling time is greatly delayed to all the digits. There is nonpitting lower extremity edema noted bilaterally. Right third digit presents with pete gangrene and encompass the entire toe. Extending proximally from the gangrenous digit is a full-thickness dorsal ulceration. The base of the ulceration is primarily fibrotic with some granulation tissue into dispersed throughout. There is noted to be serous drainage. There is no purulence. There is no evidence of underlying abscess formation. Dorsal ulceration does not probe to tendon or bone. There is no signs of cellulitis or ascending cellulitis, and there is no active bleeding noted upon cleansing. The tactile sensation is grossly diminished bilaterally. ASSESSMENT: Gangrenous right third digit as well as full-thickness diabetic ulceration on the right dorsal foot. PLAN: Discussed in detail with Dr. Cj Martinez the patient's vascular status, which at this point reveals severe bilateral trifurcation, tibial and pedal occlusive disease. On the right all 3 tibial vessels are occluded proximally. There is noted to be 60% to 70% proximal renal arterial stenosis bilaterally. Given these results, there is a high probability of non-healing if the right third digit is amputated. Given these recent findings, we will attempt to desiccate the third digit to occur. We will continue to provide aggressive local wound care to the dorsal aspect of the foot in an effort to allow the wound to heal and prevent infection. Dr. Boss's note was read and appreciated. We will continue with cefepime as per Infectious Disease. The patient will be seen in followup daily. Marquez Garrido DPM [facility] # [id number]
[2016-11-13 06:28] LABS: PH,URINE 5.5 (4.7-8.0); URINE BILIRUBIN NEGATIVE (NEGATIVE); URINE BLOOD MODERATE (NEGATIVE); URINE GLUCOSE (UA) NEGATIVE (NEGATIVE); URINE KETONE NEGATIVE (NEGATIVE); URINE LEUKOCYTE ESTERASE TRACE Leu/uL (NEGATIVE); URINE PROTEIN 30 mg/dL (<30 mg/dL); URINE UROBILINOGEN 0.2 E.U./dL (<1 E.U./dL)
[2016-11-13 06:29] LABS: URINE APPEARANCE CLEAR (CLEAR)
[2016-11-13] MEDS: Pantoprazole 40 mg EC Tab PO SCH (06:35)
[2016-11-13 06:50] LABS: URINE RBC 15 - 20 /hpf (0-2)
[2016-11-13 06:51] LABS: URINE AMORPHOUS SEDIMENT TRACE; URINE BACTERIA TRACE (NEG)
[2016-11-13] MEDS: Insulin Reg-MEDIUM-Coverage SC SCH ×3 (08:20→16:49)
[2016-11-13] MEDS: Meropenem 1g/NS 100mL IVPB 1 GM/100 ML PIGGYBACK IVPB SCH ×2 (11:12→21:53)
[2016-11-13] MEDS: Linezolid 600 mg in D5W 300 ml 600 MG/300 ML BAG IVPB SCH ×2 (12:50→22:55)
--- NOTE | 2016-11-13 14:10 | PN ---
DATE: 11/13/2016 SUBJECTIVE: The patient is seen in bed, in 570, bed 2. PHYSICAL EXAMINATION VITAL SIGNS: Temperature is 98, T-max yesterday was 100.7 and blood pressure is 150/60, respiratory rate 18, heart rate of 67. HEENT: Unremarkable. NECK: Supple. LUNGS: Have decreased breath sounds. HEART: Normal S1 and S2. ABDOMEN: Soft. EXTREMITIES: Right arm with IV infiltrate yesterday, significant erythema and induration and IV has now removed. LABORATORY DATA: Reveals a white count of 10,000, hemoglobin of 8, platelets of 274. BUN of 25, creatinine of 1.2, procalcitonin is 0.42 from yesterday. Microbiology reveals right foot culture Pseudomonas. Review of ordered revealed the patient repeat blood cultures were pending from yesterday. The patient is on meropenem and Zyvox and chest x-ray from yesterday creepy left lower consolidation versus atelectasis as read by Dr. Abner Oakes. Dr. Reid's note from yesterday is reviewed. ASSESSMENT AND PLAN: This is an 81-year-old female with diabetes and hypertension, hyperlipidemia, cerebrovascular accident, presented with third toe discoloration and foot ulcer, uncontrolled hypertension, hyperglycemia with right foot Pseudomonas cellulitis, and peripheral artery disease, and osteomyelitis with positive bone scan, was being treated with cefepime, yesterday had a new fever with a right arm erythema and induration from IV site, which has been removed, now on Zyvox, meropenem, pending repeat ocasio cultures and local wound care to the right arm from the IV site. Tre Boss MD
--- NOTE | 2016-11-13 14:54 | CP.PCM.PN ---
Subjective - Date & Time of Evaluation Date of Evaluation: 11/13/16 Time of Evaluation: 13:00 - Subjective Subjective: Podiatry Progress Note - Dr. Arevalo 81 y/o female seen at bedside for 3rd gangrenous digit and a dailey grade 1 ulcer on the dorsum of the right foot. Patient is accompanied by her grandchildren at bedside. Patient seen resting comfortably, AAOx3 and NAD. Patient denies any acute events overnight. Patient reports mild pain to her foot , decreased from yesterday's visit. Patient states she has no appetite but denies any nausea. Patient denies V/F/D/C/SOB/calf pain. No other pedal complaints at this time. Objective - Vital Signs/Intake and Output Vital Signs (last 24 hours): Temp Pulse Resp BP Pulse Ox 98.6 F 72 20 157/63 H 100 11/13/16 07:29 11/13/16 11:16 11/13/16 07:29 11/13/16 11:16 11/13/16 07:29 Intake and Output: 11/13/16 11/13/16 06:59 18:59 Intake Total 380 Output Total 1760 Balance -1380 - Medications Medications: Current Medications Acetaminophen (Tylenol 325mg Tab) 650 mg PO Q6H PRN PRN Reason: Fever >100.4 F Last Admin: 11/13/16 06:35 Dose: 650 mg Aspirin (Aspirin Chewable) 81 mg PO DAILY [facility] Last Admin: 11/13/16 11:15 Dose: 81 mg Atorvastatin Calcium (Lipitor) 10 mg PO DIN [facility] Last Admin: 11/12/16 17:33 Dose: 10 mg Carvedilol (Coreg) 6.25 mg PO BID [facility] Last Admin: 11/13/16 11:16 Dose: 6.25 mg Docusate Sodium (Colace) 100 mg PO BID [facility] Last Admin: 11/13/16 11:15 Dose: 100 mg Ergocalciferol (Drisdol 50,000 Intl Units Cap) 1 cap PO Q7D [facility] Last Admin: 11/11/16 11:10 Dose: 1 cap Hydrochlorothiazide (Microzide) 12.5 mg PO DAILY [facility] Last Admin: 11/13/16 11:14 Dose: 12.5 mg Meropenem 1g/NS 100mL IVPB (Meropenem 1g/Ns 100ml Ivpb) 1 gm in 100 mls @ 100 mls/hr IVPB Q12 [facility] PRN Reason: Protocol Stop: 11/21/16 11:08 Last Admin: 11/13/16 11:12 Dose: 100 mls/hr Linezolid (Zyvox 600mg/300ml D5w) 600 mg in 300 mls @ 200 mls/hr IVPB Q12 [facility] PRN Reason: Protocol Stop: 11/21/16 11:09 Last Admin: 11/13/16 12:50 Dose: 200 mls/hr Insulin Detemir (Levemir) 10 unit SC DAILY [facility] Last Admin: 11/12/16 11:14 Dose: 10 unit Insulin Human Regular (Humulin R Med) 0 units SC ACHS [facility] PRN Reason: Protocol Last Admin: 11/13/16 12:10 Dose: Not Given Losartan Potassium (Cozaar) 50 mg PO DAILY [facility] Last Admin: 11/13/16 11:13 Dose: 50 mg Montelukast Sodium (Singulair) 10 mg PO HS [facility] Last Admin: 11/12/16 21:38 Dose: 10 mg Pantoprazole Sodium (Protonix Ec Tab) 40 mg PO 0600 [facility] Last Admin: 11/13/16 06:35 Dose: 40 mg - Labs Labs: 11/11/16 08:35 11/11/16 08:35 PT 10.7 Seconds (9.9-11.8) 11/03/16 22:36 INR 0.99 (0.93-1.08) 11/03/16 22:36 APTT 32.4 Seconds (23.7-30.8) H 11/03/16 22:36 - Extremities Exam Additional comments: VASC: DP/PT pulses are non-palpable bilaterally, INDUSTRIAL TRAINING SPECIALIST: > 3 sec to all digits, Temp gradient: cool to cool from proximal to distal, no pitting or non-pitting edema noted bilaterally DERM: hyperpigmented and necrotic 3rd digit with dorsum of the right forefoot wound, wound bed appears to have approximately 75% fibrosis and 25% granular base, no periwound erythema, serosanguinous drainage, no active bleeding, no probe to bone, no ascending cellulitis, no undermining or tunneling, no clinical suspicion of active infection NEURO: Protective sensation grossly diminished ORTHO: no pain on palpation of the 3rd digit on the right foot Assessment and Plan - Assessment and Plan (Free Text) Assessment: 81 y/o female seen at bedside for 1) gangrenous 3rd digit on the right foot 2) dailey grade 1 ulceration Plan: Patient seen and evaluated discussed in detail with attending Dr. Arevalo Labs and vitals reviewed: afebrile S/P artherectomy and angioplasty of RLE, shows all 3 tibial vessels occluded Patient not a good surgical candidate due to high probability of non-healing given vascular status Continue local wound care to dorsum of right foot. Dressing changed using telpatricia DSD to right foot Patient to remain on IV abx as per ID Podiatry to follow patient while patient is in house
--- NOTE | 2016-11-13 20:04 | CP.PCM.PN ---
<Goyo Lepe - Last Filed: 11/13/16 20:10> Subjective - Date & Time of Evaluation Date of Evaluation: 11/13/16 Time of Evaluation: 20:04 - Subjective Subjective: Patient has been seen and examined. No other overnight events reported. Denies any fever, chills, SOB, CP, N/V/D, constipation, abdominal pain, changes in urinary or bowel habits, or lower extremity pain. Patient complains of right arm pain and low appetite. Objective - Vital Signs/Intake and Output Vital Signs (last 24 hours): Temp Pulse Resp BP Pulse Ox 97.9 F 70 16 156/65 H 98 11/13/16 16:00 11/13/16 18:34 11/13/16 16:00 11/13/16 18:34 11/13/16 16:00 Intake and Output: 11/13/16 11/14/16 18:59 06:59 Intake Total 540 Output Total 250 Balance 290 - Medications Medications: Current Medications Acetaminophen (Tylenol 325mg Tab) 650 mg PO Q6H PRN PRN Reason: Fever >100.4 F Last Admin: 11/13/16 06:35 Dose: 650 mg Aspirin (Aspirin Chewable) 81 mg PO DAILY [facility] Last Admin: 11/13/16 11:15 Dose: 81 mg Atorvastatin Calcium (Lipitor) 10 mg PO DIN [facility] Last Admin: 11/13/16 18:35 Dose: 10 mg Carvedilol (Coreg) 6.25 mg PO BID [facility] Last Admin: 11/13/16 18:34 Dose: 6.25 mg Docusate Sodium (Colace) 100 mg PO BID [facility] Last Admin: 11/13/16 18:35 Dose: 100 mg Ergocalciferol (Drisdol 50,000 Intl Units Cap) 1 cap PO Q7D [facility] Last Admin: 11/11/16 11:10 Dose: 1 cap Hydrochlorothiazide (Microzide) 12.5 mg PO DAILY [facility] Last Admin: 11/13/16 11:14 Dose: 12.5 mg Meropenem 1g/NS 100mL IVPB (Meropenem 1g/Ns 100ml Ivpb) 1 gm in 100 mls @ 100 mls/hr IVPB Q12 [facility] PRN Reason: Protocol Stop: 11/21/16 11:08 Last Admin: 11/13/16 11:12 Dose: 100 mls/hr Linezolid (Zyvox 600mg/300ml D5w) 600 mg in 300 mls @ 200 mls/hr IVPB Q12 [facility] PRN Reason: Protocol Stop: 11/21/16 11:09 Last Admin: 11/13/16 12:50 Dose: 200 mls/hr Insulin Detemir (Levemir) 10 unit SC DAILY [facility] Last Admin: 11/12/16 11:14 Dose: 10 unit Insulin Human Regular (Humulin R Med) 0 units SC ACHS [facility] PRN Reason: Protocol Last Admin: 11/13/16 16:49 Dose: 5 units Losartan Potassium (Cozaar) 50 mg PO DAILY [facility] Last Admin: 11/13/16 11:13 Dose: 50 mg Montelukast Sodium (Singulair) 10 mg PO HS [facility] Last Admin: 11/12/16 21:38 Dose: 10 mg Pantoprazole Sodium (Protonix Ec Tab) 40 mg PO 0600 [facility] Last Admin: 11/13/16 06:35 Dose: 40 mg - Labs Labs: 11/11/16 08:35 11/11/16 08:35 PT 10.7 Seconds (9.9-11.8) 11/03/16 22:36 INR 0.99 (0.93-1.08) 11/03/16 22:36 APTT 32.4 Seconds (23.7-30.8) H 11/03/16 22:36 - Constitutional Appears: No Acute Distress, Cachectic - Head Exam Head Exam: ATRAUMATIC, NORMOCEPHALIC - 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 absent: Tenderness - Extremities Exam Additional comments: R arm swollen. with erythema at antecubital fossa region (improved). 3rd Right toe necrotic, hyperpigmented with proximal ulceration. - Neurological Exam Neurological Exam: Alert, Awake, Oriented x3 - Psychiatric Exam Psychiatric exam: Normal Affect, Normal Mood Assessment and Plan - Assessment and Plan (Free Text) Assessment: 81F with PMH IDDM, HTN, HLD, CVA, presents for right 3rd toe discoloration, right distal foot ulcer, uncontrolled HTN, hyperglycemia Plan: Right distal foot ulcer near right 3rd toe/necrotic R 3rd toe: -Foot Xray: Showed soft tissue swelling w/o acute articular/osseous abnormality , and no signs of osteomyelitis. -Vacular consult ordered (Dr. Martinez) - recs appreciated. - Podiatry recs appreciated. - MRI shows increased signal density in Bone marrow but likely artifact - Bone scan positive - MRA read No evidence of iliac stenosis or occlusion. Focal stenosis in right proximal and distal SFA. Occluded anterior tibial. Single vessel runoff to left ankle via the peroneal. Anterior and posterior tibial arteries are occluded -went for arteriogram 2 days ago -Blood culture shows no growth after 4 days. Wound cultures show Pseudomonas A. - Cont. cefepime. Per ID, patient will need 4 weeks of antibiotics, weekly CBC , SMA 18, sedimentation rate, and CRP. -Per Pod. Possible amputation of right 3rd toe early next week. Anorexia -Leaf Binner ordered -Consider appetite stimulant Anemia of Chronic Disease -Consider Iron Supplementation -Monitor HgB. Transfuse if Hgb < 7 -consent in chart. Hypertension: - C/w home meds carvedilol and losartan/hctz IDDM: - hold home oral antidiabetics - c.w home levemir and on ISS. -hold insulin for sugars > 400 Hx of HLD: - c/w lovastatin Hx of asthma: -c/w singulair DVT ppx: SCDs Dispo: R third toe amputation planned for early this week. Patient seen, examined, and reviewed with Attending Goyo Lepe PGY-1 <Yanely Reid - Last Filed: 11/13/16 21:13> Objective - Vital Signs/Intake and Output Vital Signs (last 24 hours): Temp Pulse Resp BP Pulse Ox 97.9 F 70 16 156/65 H 98 11/13/16 16:00 11/13/16 18:34 11/13/16 16:00 11/13/16 18:34 11/13/16 16:00 Intake and Output: 11/13/16 11/14/16 18:59 06:59 Intake Total 540 Output Total 250 Balance 290 - Medications Medications: Current Medications Acetaminophen (Tylenol 325mg Tab) 650 mg PO Q6H PRN PRN Reason: Fever >100.4 F Last Admin: 11/13/16 06:35 Dose: 650 mg Aspirin (Aspirin Chewable) 81 mg PO DAILY [facility] Last Admin: 11/13/16 11:15 Dose: 81 mg Atorvastatin Calcium (Lipitor) 10 mg PO DIN [facility] Last Admin: 11/13/16 18:35 Dose: 10 mg Carvedilol (Coreg) 6.25 mg PO BID [facility] Last Admin: 11/13/16 18:34 Dose: 6.25 mg Docusate Sodium (Colace) 100 mg PO BID [facility] Last Admin: 11/13/16 18:35 Dose: 100 mg Ergocalciferol (Drisdol 50,000 Intl Units Cap) 1 cap PO Q7D [facility] Last Admin: 11/11/16 11:10 Dose: 1 cap Hydrochlorothiazide (Microzide) 12.5 mg PO DAILY [facility] Last Admin: 11/13/16 11:14 Dose: 12.5 mg Meropenem 1g/NS 100mL IVPB (Meropenem 1g/Ns 100ml Ivpb) 1 gm in 100 mls @ 100 mls/hr IVPB Q12 [facility] PRN Reason: Protocol Stop: 11/21/16 11:08 Last Admin: 11/13/16 11:12 Dose: 100 mls/hr Linezolid (Zyvox 600mg/300ml D5w) 600 mg in 300 mls @ 200 mls/hr IVPB Q12 [facility] PRN Reason: Protocol Stop: 11/21/16 11:09 Last Admin: 11/13/16 12:50 Dose: 200 mls/hr Insulin Detemir (Levemir) 10 unit SC DAILY [facility] Last Admin: 11/12/16 11:14 Dose: 10 unit Insulin Human Regular (Humulin R Med) 0 units SC ACHS [facility] PRN Reason: Protocol Last Admin: 11/13/16 16:49 Dose: 5 units Losartan Potassium (Cozaar) 50 mg PO DAILY [facility] Last Admin: 11/13/16 11:13 Dose: 50 mg Montelukast Sodium (Singulair) 10 mg PO HS [facility] Last Admin: 11/12/16 21:38 Dose: 10 mg Pantoprazole Sodium (Protonix Ec Tab) 40 mg PO 0600 [facility] Last Admin: 11/13/16 06:35 Dose: 40 mg - Labs Labs: 11/11/16 08:35 11/11/16 08:35 PT 10.7 Seconds (9.9-11.8) 11/03/16 22:36 INR 0.99 (0.93-1.08) 11/03/16 22:36 APTT 32.4 Seconds (23.7-30.8) H 11/03/16 22:36 Attending/Attestation - Attestation I have personally seen and examined this patient.: Yes I have fully participated in the care of the patient.: Yes I have reviewed all pertinent clinical information, including history, physical exam and plan: Yes Notes (Text): 11/13/16 21:10 Agree with above except antibiotics were recently switched from cefepime to zyvox/meropenem and levemir held this morning as patient was hypoglycemic earlier this morning with FS of 60. Poor appetite noted; requested line inspector eval; consider appetite stimulant if remains poor. Yanely Reid MD Hospitalist.
[2016-11-14] MEDS: Insulin Reg-MEDIUM-Coverage SC SCH ×5 (02:23→21:52)
[2016-11-14] MEDS: Pantoprazole 40 mg EC Tab PO SCH (05:05)
[2016-11-14] MEDS: Meropenem 1g/NS 100mL IVPB 1 GM/100 ML PIGGYBACK IVPB SCH ×2 (09:30→21:56)
[2016-11-14 10:37] LABS: HEMATOCRIT 26.4 % (36.0-48.0); MEAN CELL VOLUME 80.7 fl (80.0-105.0); MEAN CORPUSCULAR HEMOGLOBIN 25.7 pg (25.0-35.0); MEAN CORPUSCULAR HGB CONC 31.8 g/dl (31.0-37.0); MEAN PLATELET VOLUME 9.6 fl (7.0-11.0); RED CELL DISTRIBUTION WIDTH 14.4 % (11.5-14.5); WHITE BLOOD COUNT 7.1 10^3/ul (4.5-11.0)
[2016-11-14 10:49] LABS: ALB/GLOB RATIO 0.8 (1.1-1.8); BILIRUBIN,TOTAL 0.3 mg/dL (0.2-1.3); CALCIUM 9.3 mg/dL (8.4-10.5); POTASSIUM 3.8 mmol/L (3.6-5.0); TOTAL PROTEIN 6.1 g/dL (5.8-8.3)
[2016-11-14] MEDS: Linezolid 600 mg in D5W 300 ml 600 MG/300 ML BAG IVPB SCH ×2 (10:59→23:00)
--- NOTE | 2016-11-14 15:46 | CP.PCM.PN ---
Subjective - Date & Time of Evaluation Date of Evaluation: 11/14/16 Time of Evaluation: 14:40 - Subjective Subjective: Comfortable, not in distress, afebrile. Objective - Vital Signs/Intake and Output Vital Signs (last 24 hours): Temp Pulse Resp BP Pulse Ox 98 F 67 20 174/76 H 98 11/14/16 07:55 11/14/16 09:31 11/14/16 07:55 11/14/16 09:31 11/14/16 07:55 Intake and Output: 11/14/16 11/14/16 06:59 18:59 Intake Total 120 Output Total 1200 Balance -1080 - Medications Medications: Current Medications Acetaminophen (Tylenol 325mg Tab) 650 mg PO Q6H PRN PRN Reason: Fever >100.4 F Last Admin: 11/14/16 05:05 Dose: 650 mg Aspirin (Aspirin Chewable) 81 mg PO DAILY [facility] Last Admin: 11/14/16 09:30 Dose: 81 mg Atorvastatin Calcium (Lipitor) 10 mg PO DIN [facility] Last Admin: 11/13/16 18:35 Dose: 10 mg Carvedilol (Coreg) 6.25 mg PO BID [facility] Last Admin: 11/14/16 09:30 Dose: 6.25 mg Docusate Sodium (Colace) 100 mg PO BID [facility] Last Admin: 11/14/16 09:30 Dose: Not Given Dronabinol (Marinol) 2.5 mg PO BID [facility] Ergocalciferol (Drisdol 50,000 Intl Units Cap) 1 cap PO Q7D [facility] Last Admin: 11/11/16 11:10 Dose: 1 cap Hydrochlorothiazide (Microzide) 12.5 mg PO DAILY [facility] Last Admin: 11/14/16 09:31 Dose: 12.5 mg Meropenem 1g/NS 100mL IVPB (Meropenem 1g/Ns 100ml Ivpb) 1 gm in 100 mls @ 100 mls/hr IVPB Q12 [facility] PRN Reason: Protocol Stop: 11/21/16 11:08 Last Admin: 11/14/16 09:30 Dose: 100 mls/hr Linezolid (Zyvox 600mg/300ml D5w) 600 mg in 300 mls @ 200 mls/hr IVPB Q12 [facility] PRN Reason: Protocol Stop: 11/21/16 11:09 Last Admin: 11/14/16 10:59 Dose: 200 mls/hr Insulin Detemir (Levemir) 10 unit SC DAILY [facility] Last Admin: 11/12/16 11:14 Dose: 10 unit Insulin Human Regular (Humulin R Med) 0 units SC ACHS [facility] PRN Reason: Protocol Last Admin: 11/14/16 07:54 Dose: Not Given Losartan Potassium (Cozaar) 50 mg PO DAILY [facility] Last Admin: 11/14/16 09:31 Dose: 50 mg Montelukast Sodium (Singulair) 10 mg PO HS [facility] Last Admin: 11/13/16 21:52 Dose: 10 mg Oxycodone/Acetaminophen (Percocet 5/325 Mg Tab) 1 tab PO Q6H [facility] PRN Reason: Pain, severe (8-10) Stop: 11/17/16 09:39 Pantoprazole Sodium (Protonix Ec Tab) 40 mg PO 0600 [facility] Last Admin: 11/14/16 05:05 Dose: 40 mg - Labs Labs: 11/14/16 10:31 11/14/16 10:31 PT 10.7 Seconds (9.9-11.8) 11/03/16 22:36 INR 0.99 (0.93-1.08) 11/03/16 22:36 APTT 32.4 Seconds (23.7-30.8) H 11/03/16 22:36 - Constitutional Appears: Non-toxic, No Acute Distress - Head Exam Head Exam: NORMAL INSPECTION - ENT Exam ENT Exam: Mucous Membranes Moist - Neck Exam Neck Exam: absent: Meningismus - Respiratory Exam Respiratory Exam: Decreased Breath Sounds - Cardiovascular Exam Cardiovascular Exam: +S1, +S2 - GI/Abdominal Exam GI & Abdominal Exam: Soft. absent: Tenderness Assessment and Plan - Assessment and Plan (Free Text) Plan: Assessment infected right foot ulcer with cellulitis with Pseudomonas with severe peripheral arterial disease; osteomyelitis could not be ruled out with MRI but bone scan is positive infltrated right arm IV site S/P removal HTN dyslipidemia DM history of CVA asthma history of left foot ulcer and infection Plan continue Zyvox and Merrem - will need prolonged antibiotics with Merrem or cefepime with weekly ESR, CRP, CBC, CMP -discussed with Dr. Livingston
--- NOTE | 2016-11-14 20:41 | CP.PCM.PN ---
<Goyo Lepe - Last Filed: 11/14/16 20:37> Subjective - Date & Time of Evaluation Date of Evaluation: 11/14/16 Time of Evaluation: 07:10 - Subjective Subjective: Patient has been seen and examined. She complains of slight pain in the right arm which is improving. She denies any fevers, chills, CP, SOB, abdominal pain. She does complain of right lower extremity pain which kept her up at night. She also complains of no appetite. Objective - Vital Signs/Intake and Output Vital Signs (last 24 hours): Temp Pulse Resp BP Pulse Ox 98.1 F 60 18 166/71 H 99 11/14/16 16:00 11/14/16 18:14 11/14/16 16:00 11/14/16 18:14 11/14/16 16:00 Intake and Output: 11/14/16 11/15/16 18:59 06:59 Intake Total 360 Output Total 300 Balance 60 - Medications Medications: Current Medications Acetaminophen (Tylenol 325mg Tab) 650 mg PO Q6H PRN PRN Reason: Fever >100.4 F Last Admin: 11/14/16 05:05 Dose: 650 mg Aspirin (Aspirin Chewable) 81 mg PO DAILY [facility] Last Admin: 11/14/16 09:30 Dose: 81 mg Atorvastatin Calcium (Lipitor) 10 mg PO DIN [facility] Last Admin: 11/14/16 17:34 Dose: 10 mg Carvedilol (Coreg) 6.25 mg PO BID [facility] Last Admin: 11/14/16 18:14 Dose: 6.25 mg Docusate Sodium (Colace) 100 mg PO BID [facility] Last Admin: 11/14/16 18:14 Dose: 100 mg Dronabinol (Marinol) 2.5 mg PO BID [facility] Last Admin: 11/14/16 18:15 Dose: Not Given Ergocalciferol (Drisdol 50,000 Intl Units Cap) 1 cap PO Q7D [facility] Last Admin: 11/11/16 11:10 Dose: 1 cap Hydrochlorothiazide (Microzide) 12.5 mg PO DAILY [facility] Last Admin: 11/14/16 09:31 Dose: 12.5 mg Meropenem 1g/NS 100mL IVPB (Meropenem 1g/Ns 100ml Ivpb) 1 gm in 100 mls @ 100 mls/hr IVPB Q12 [facility] PRN Reason: Protocol Stop: 11/21/16 11:08 Last Admin: 11/14/16 09:30 Dose: 100 mls/hr Linezolid (Zyvox 600mg/300ml D5w) 600 mg in 300 mls @ 200 mls/hr IVPB Q12 [facility] PRN Reason: Protocol Stop: 11/21/16 11:09 Last Admin: 11/14/16 10:59 Dose: 200 mls/hr Insulin Detemir (Levemir) 10 unit SC DAILY [facility] Last Admin: 11/12/16 11:14 Dose: 10 unit Insulin Human Regular (Humulin R Med) 0 units SC ACHS [facility] PRN Reason: Protocol Last Admin: 11/14/16 17:34 Dose: 1 units Losartan Potassium (Cozaar) 50 mg PO DAILY [facility] Last Admin: 11/14/16 09:31 Dose: 50 mg Montelukast Sodium (Singulair) 10 mg PO HS [facility] Last Admin: 11/13/16 21:52 Dose: 10 mg Oxycodone/Acetaminophen (Percocet 5/325 Mg Tab) 1 tab PO Q6H PRN PRN Reason: Pain, severe (8-10) Stop: 11/17/16 09:39 Pantoprazole Sodium (Protonix Ec Tab) 40 mg PO 0600 [facility] Last Admin: 11/14/16 05:05 Dose: 40 mg - Labs Labs: 11/14/16 10:31 11/14/16 10:31 PT 10.7 Seconds (9.9-11.8) 11/03/16 22:36 INR 0.99 (0.93-1.08) 11/03/16 22:36 APTT 32.4 Seconds (23.7-30.8) H 11/03/16 22:36 - Constitutional Appears: Non-toxic, No Acute Distress - Head Exam Head Exam: ATRAUMATIC, NORMAL INSPECTION, NORMOCEPHALIC - 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 - ENT Exam ENT Exam: Mucous Membranes Moist - Respiratory Exam Respiratory Exam: Clear to Ausculation Bilateral - Cardiovascular Exam Cardiovascular Exam: RRR, +S1, +S2 - GI/Abdominal Exam GI & Abdominal Exam: Soft, Normal Bowel Sounds. absent: Tenderness - Extremities Exam Additional comments: Right arm swollen (improved). erythema in region of antecubital fossa. R toe necrotic, hyperpigmented with proximal ulceration. - Neurological Exam Neurological Exam: Alert, Oriented x3 - Skin Skin Exam: Dry, Normal Color Assessment and Plan - Assessment and Plan (Free Text) Assessment: 81F with PMH IDDM, HTN, HLD, CVA, presents for right 3rd toe discoloration, right distal foot ulcer, uncontrolled HTN, hyperglycemia Plan: Right distal foot ulcer near right 3rd toe/necrotic R 3rd toe: -Foot Xray: Showed soft tissue swelling w/o acute articular/osseous abnormality , and no signs of osteomyelitis. -Vascular consult ordered (Dr. Martinez) - recs appreciated. - Podiatry recs appreciated. - MRI shows increased signal density in Bone marrow but likely artifact - Bone scan positive - MRA read No evidence of iliac stenosis or occlusion. Focal stenosis in right proximal and distal SFA. Occluded anterior tibial. Single vessel runoff to left ankle via the peroneal. Anterior and posterior tibial arteries are occluded -went for arteriogram 2 days ago -Blood culture shows no growth after 4 days. Wound cultures show Pseudomonas A. - Cont. cefepime. Per ID, patient will need 4 weeks of antibiotics, weekly CBC , SMA 18, sedimentation rate, and CRP. -Per podiatry, patient is not a good candidate for surgery due to poor blood flow. Anorexia -Legal Recovery Specialist ordered -Marinol Anemia of Chronic Disease -Consider Iron Supplementation -Monitor HgB. Transfuse if Hgb < 7 -consent in chart. Hypertension: - C/w home meds carvedilol and losartan/hctz IDDM: - hold home oral antidiabetics - c.w home levemir and on ISS. -hold insulin for sugars > 400 Hx of HLD: - c/w lovastatin Hx of asthma: -c/w singulair DVT ppx: SCDs Dispo: Case management consulted for discharge planning and LUCINA placement. DC'd ocasio catheter. Patient will need 4 or more weeks of IV antibiotics. Patient seen, examined, and reviewed with Attending Goyo Lepe PGY-1 <Yara CAMACHO,[facility] - Last Filed: 11/15/16 13:41> Objective - Vital Signs/Intake and Output Vital Signs (last 24 hours): Temp Pulse Resp BP Pulse Ox 98.0 F 73 18 178/77 H 98 11/15/16 08:00 11/15/16 08:00 11/15/16 08:00 11/15/16 08:00 11/15/16 08:00 Intake and Output: 11/15/16 11/15/16 06:59 18:59 Intake Total 240 120 Output Total 200 Balance 40 120 - Medications Medications: Current Medications Acetaminophen (Tylenol 325mg Tab) 650 mg PO Q6H PRN PRN Reason: Fever >100.4 F Last Admin: 11/14/16 05:05 Dose: 650 mg Amlodipine Besylate (Norvasc) 5 mg PO DAILY [facility] Aspirin (Aspirin Chewable) 81 mg PO DAILY [facility] Last Admin: 11/15/16 09:38 Dose: 81 mg Atorvastatin Calcium (Lipitor) 10 mg PO DIN [facility] Last Admin: 11/14/16 17:34 Dose: 10 mg Carvedilol (Coreg) 6.25 mg PO BID [facility] Last Admin: 11/15/16 09:37 Dose: 6.25 mg Docusate Sodium (Colace) 100 mg PO BID [facility] Last Admin: 11/15/16 09:39 Dose: 100 mg Dronabinol (Marinol) 2.5 mg PO BID [facility] Last Admin: 11/15/16 09:39 Dose: 2.5 mg Ergocalciferol (Drisdol 50,000 Intl Units Cap) 1 cap PO Q7D [facility] Last Admin: 11/11/16 11:10 Dose: 1 cap Meropenem 1g/NS 100mL IVPB (Meropenem 1g/Ns 100ml Ivpb) 1 gm in 100 mls @ 100 mls/hr IVPB Q12 [facility] PRN Reason: Protocol Stop: 11/21/16 11:08 Last Admin: 11/15/16 09:41 Dose: 100 mls/hr Linezolid (Zyvox 600mg/300ml D5w) 600 mg in 300 mls @ 200 mls/hr IVPB Q12 [facility] PRN Reason: Protocol Stop: 11/21/16 11:09 Last Admin: 11/15/16 11:17 Dose: 200 mls/hr Insulin Detemir (Levemir) 10 unit SC DAILY [facility] Last Admin: 11/12/16 11:14 Dose: 10 unit Insulin Human Regular (Humulin R Med) 0 units SC ACHS [facility] PRN Reason: Protocol Last Admin: 11/15/16 12:51 Dose: 1 units Losartan Potassium (Cozaar) 75 mg PO DAILY [facility] Last Admin: 11/15/16 09:40 Dose: 75 mg Montelukast Sodium (Singulair) 10 mg PO HS [facility] Last Admin: 11/14/16 21:56 Dose: 10 mg Oxycodone/Acetaminophen (Percocet 5/325 Mg Tab) 1 tab PO Q6H PRN PRN Reason: Pain, severe (8-10) Stop: 11/17/16 09:39 Last Admin: 11/15/16 08:19 Dose: 1 tab Pantoprazole Sodium (Protonix Ec Tab) 40 mg PO 0600 [facility] Last Admin: 11/15/16 06:24 Dose: 40 mg - Labs Labs: 11/15/16 06:42 11/15/16 06:42 PT 10.7 Seconds (9.9-11.8) 11/03/16 22:36 INR 0.99 (0.93-1.08) 11/03/16 22:36 APTT 32.4 Seconds (23.7-30.8) H 11/03/16 22:36 Attending/Attestation - Attestation I have personally seen and examined this patient.: Yes I have fully participated in the care of the patient.: Yes I have reviewed all pertinent clinical information, including history, physical exam and plan: Yes Notes (Text): 11/15/16 13:39 Patient was seen and examined with medical manager. Agreed with resident assessment and plan. 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 Cj Martinez and underwent angioplasty last week, no plan for any surgical intervention as per Podiatry .Wound cultures are growing Pseudominas, case was discussed with ID, plan to treat with IV antibiotics cefepime/Meropenem for 4 weeks.We will get PICC line.Case was discussed with case management regarding disposition. Management plan was discussed in detail with patient family. Education was provided.
--- NOTE | 2016-11-14 22:51 | PN ---
SUBJECTIVE: This is an 81-year-old diabetic female, seen at bedside for a gangrene and ulceration to the right foot. The patient is with severe peripheral vascular disease. PHYSICAL EXAMINATION VITAL SIGNS: The patient's vital signs were reviewed. Her temperature is 98.1, her blood pressure is 166/71, respirations are 18 and the ox sat was 99. LABORATORY DATA: The patient's lab were reviewed. Her white blood cell count is 7.1, H and H is 8.4 and 26.4, and platelets are 321. Chemistry shows a BUN and creatinine of 22 and 1.3. The glucose was 196. The patient's microbiology shows pseudomonas and the blood cultures were no growth after 48 hours. The patient is presently on IV antibiotics as per infectious disease. She is receiving meropenem and Zyvox. The patient's lower extremities were evaluated. She has nonpalpable pedal pulses. She has thin shiny skin. She has an ulceration on the dorsal aspect of the right foot with a gangrenous third digit. The gangrene is full-thickness gangrene and it goes to the level of the MPJ. After the level of the MPJ, there is a fibrous ulceration with very little granulation tissue. There is no cellulitis. There is no bone or tendons exposing this wound at this time. However, there is minimal circulation even status post angioplasty. I did speak with Dr. Cj Martinez who stated that the patient has one thin vessel coming into the foot and it is not enough to heal any type of amputation; he suggested that we do palliative care and see if we can get the digit to autoamputate. At this time, we will continue this local care, antibiotics as per infectious disease. Her bone scan was positive for osteo. Clinically, she has left gangrene which is now starting to dry. 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 PLAN OF TREATMENT: Betadine needs to be placed on the wound and dry sterile dressing in hopes of demarcating the digit and keeping the wound clean. No surgery is going to be planned for this patient because of the high risk of nonhealing. Any surgery would have to be a BKA if surgery would be contemplated. Clementine Arevalo DPM [facility] # [id number]
[2016-11-15] MEDS: Oxycodone/Acetaminophen 5/325 mg Tab PO PRN ×3 (01:29→20:30)
[2016-11-15] MEDS: Pantoprazole 40 mg EC Tab PO SCH (06:24)
[2016-11-15 06:59] LABS: BASO # 0.02 K/mm3 (0.0-2.0); BASO % 0.3 % (0.0-3.0); EOS # 0.5 (0.0-0.7); EOS % 7.9 % (1.5-5.0); GRAN # 3.23 (1.4-6.5); GRAN % 49.3 % (50.0-68.0); HEMATOCRIT 26.1 % (36.0-48.0); LYMPH # 1.7 (1.2-3.4); LYMPH % 26.2 % (22.0-35.0); MEAN CELL VOLUME 80.3 fl (80.0-105.0); MEAN CORPUSCULAR HEMOGLOBIN 25.5 pg (25.0-35.0); MEAN CORPUSCULAR HGB CONC 31.8 g/dl (31.0-37.0); MEAN PLATELET VOLUME 9.7 fl (7.0-11.0); MONO # 1.1 (0.1-0.6); MONO % 16.3 % (1.0-6.0); RED CELL DISTRIBUTION WIDTH 14.3 % (11.5-14.5); WHITE BLOOD COUNT 6.6 10^3/ul (4.5-11.0)
[2016-11-15 07:36] LABS: ALB/GLOB RATIO 0.8 (1.1-1.8); BILIRUBIN,TOTAL 0.3 mg/dL (0.2-1.3); CALCIUM 9.3 mg/dL (8.4-10.5); POTASSIUM 4.2 mmol/L (3.6-5.0)
--- NOTE | 2016-11-15 08:23 | PN ---
CARDIOLOGY FOLLOWUP DATE: 11/14/2016 SUBJECTIVE: The patient is without chest pain. PHYSICAL EXAMINATION: VITAL SIGNS: Blood pressure is 174/76, heart rate in the 60s. NECK: Negative JVD. LUNGS: Without rales. HEART: S1, S2. EXTREMITIES: Gangrenous right lower extremity digits. LABORATORY DATA: Hemoglobin is 8.4. Chemistries, BUN and creatinine is 22 and 1.3 with a glucose of 196. IMPRESSION: 1. Gangrenous right lower extremity digit. 2. Peripheral vascular disease. 3. Diabetes mellitus. 4. Hypertension. 5. Hypercholesterolemia. Given these findings, the patient is free of active cardiac ischemia at this time. We will continue the baby aspirin and low-dose beta blockers and preparation for possible surgery. Cj May MD
[2016-11-15] MEDS: Insulin Reg-MEDIUM-Coverage SC SCH ×4 (08:36→21:53)
[2016-11-15] MEDS: Meropenem 1g/NS 100mL IVPB 1 GM/100 ML PIGGYBACK IVPB SCH ×2 (09:41→21:54)
[2016-11-15] MEDS: Linezolid 600 mg in D5W 300 ml 600 MG/300 ML BAG IVPB SCH (11:17)
--- NOTE | 2016-11-15 14:03 | CP.PCM.PN ---
Subjective - Date & Time of Evaluation Date of Evaluation: 11/15/16 Time of Evaluation: 12:20 - Subjective Subjective: Comfortable, not febrile. Objective - Vital Signs/Intake and Output Vital Signs (last 24 hours): Temp Pulse Resp BP Pulse Ox 98.0 F 73 18 178/77 H 98 11/15/16 08:00 11/15/16 08:00 11/15/16 08:00 11/15/16 08:00 11/15/16 08:00 Intake and Output: 11/15/16 11/15/16 06:59 18:59 Intake Total 240 Output Total 200 Balance 40 - Medications Medications: Current Medications Acetaminophen (Tylenol 325mg Tab) 650 mg PO Q6H PRN PRN Reason: Fever >100.4 F Last Admin: 11/14/16 05:05 Dose: 650 mg Aspirin (Aspirin Chewable) 81 mg PO DAILY [facility] Last Admin: 11/15/16 09:38 Dose: 81 mg Atorvastatin Calcium (Lipitor) 10 mg PO DIN [facility] Last Admin: 11/14/16 17:34 Dose: 10 mg Carvedilol (Coreg) 6.25 mg PO BID [facility] Last Admin: 11/15/16 09:37 Dose: 6.25 mg Docusate Sodium (Colace) 100 mg PO BID [facility] Last Admin: 11/15/16 09:39 Dose: 100 mg Dronabinol (Marinol) 2.5 mg PO BID [facility] Last Admin: 11/15/16 09:39 Dose: 2.5 mg Ergocalciferol (Drisdol 50,000 Intl Units Cap) 1 cap PO Q7D [facility] Last Admin: 11/11/16 11:10 Dose: 1 cap Hydrochlorothiazide (Microzide) 12.5 mg PO DAILY [facility] Last Admin: 11/15/16 09:39 Dose: 12.5 mg Meropenem 1g/NS 100mL IVPB (Meropenem 1g/Ns 100ml Ivpb) 1 gm in 100 mls @ 100 mls/hr IVPB Q12 [facility] PRN Reason: Protocol Stop: 11/21/16 11:08 Last Admin: 11/15/16 09:41 Dose: 100 mls/hr Linezolid (Zyvox 600mg/300ml D5w) 600 mg in 300 mls @ 200 mls/hr IVPB Q12 [facility] PRN Reason: Protocol Stop: 11/21/16 11:09 Last Admin: 11/14/16 23:00 Dose: 200 mls/hr Insulin Detemir (Levemir) 10 unit SC DAILY [facility] Last Admin: 11/12/16 11:14 Dose: 10 unit Insulin Human Regular (Humulin R Med) 0 units SC ACHS [facility] PRN Reason: Protocol Last Admin: 11/15/16 08:36 Dose: 3 units Losartan Potassium (Cozaar) 75 mg PO DAILY [facility] Last Admin: 11/15/16 09:40 Dose: 75 mg Montelukast Sodium (Singulair) 10 mg PO HS [facility] Last Admin: 11/14/16 21:56 Dose: 10 mg Oxycodone/Acetaminophen (Percocet 5/325 Mg Tab) 1 tab PO Q6H PRN PRN Reason: Pain, severe (8-10) Stop: 11/17/16 09:39 Last Admin: 11/15/16 08:19 Dose: 1 tab Pantoprazole Sodium (Protonix Ec Tab) 40 mg PO 0600 [facility] Last Admin: 11/15/16 06:24 Dose: 40 mg - Labs Labs: 11/15/16 06:42 11/15/16 06:42 PT 10.7 Seconds (9.9-11.8) 11/03/16 22:36 INR 0.99 (0.93-1.08) 11/03/16 22:36 APTT 32.4 Seconds (23.7-30.8) H 11/03/16 22:36 - Constitutional Appears: Non-toxic, No Acute Distress - Head Exam Head Exam: NORMAL INSPECTION - ENT Exam ENT Exam: Mucous Membranes Moist - Neck Exam Neck Exam: absent: Meningismus - Respiratory Exam Respiratory Exam: Decreased Breath Sounds - Cardiovascular Exam Cardiovascular Exam: +S1, +S2 - GI/Abdominal Exam GI & Abdominal Exam: Soft. absent: Tenderness Assessment and Plan - Assessment and Plan (Free Text) Plan: Assessment infected right foot ulcer with cellulitis with Pseudomonas with severe peripheral arterial disease; osteomyelitis could not be ruled out with MRI but bone scan is positive infltrated right arm IV site S/P removal HTN dyslipidemia DM history of CVA asthma history of left foot ulcer and infection Plan continue Zyvox and Merrem - the patient will need prolonged antibiotics with Merrem or cefepime with weekly ESR, CRP, CBC, CMP -discussed with Dr. Livingston
--- NOTE | 2016-11-15 15:22 | CP.PCM.PN ---
<YessyElysiaaziza - Last Filed: 11/15/16 15:19> Subjective - Date & Time of Evaluation Date of Evaluation: 11/15/16 Time of Evaluation: 14:19 - Subjective Subjective: Podiatry Progress Note - Dr. Garrido 81 y/o female seen at bedside with attending, Dr. Garrido, for 3rd gangrenous digit and a madrigal grade 1 ulcer on the dorsum of the right foot. Patient seen resting comfortably, AAOx3 and NAD. Patient denies any acute events overnight. Patient reports continued pain to right foot. Patient states she has no appetite but denies any nausea. Patient denies V/F/D/C/SOB/calf pain. No other pedal complaints at this time. Objective - Vital Signs/Intake and Output Vital Signs (last 24 hours): Temp Pulse Resp BP Pulse Ox 98.0 F 73 18 178/77 H 98 11/15/16 08:00 11/15/16 08:00 11/15/16 08:00 11/15/16 08:00 11/15/16 08:00 Intake and Output: 11/15/16 11/15/16 06:59 18:59 Intake Total 240 120 Output Total 200 Balance 40 120 - Medications Medications: Current Medications Acetaminophen (Tylenol 325mg Tab) 650 mg PO Q6H PRN PRN Reason: Fever >100.4 F Last Admin: 11/14/16 05:05 Dose: 650 mg Amlodipine Besylate (Norvasc) 5 mg PO DAILY [facility] Aspirin (Aspirin Chewable) 81 mg PO DAILY [facility] Last Admin: 11/15/16 09:38 Dose: 81 mg Atorvastatin Calcium (Lipitor) 10 mg PO DIN [facility] Last Admin: 11/14/16 17:34 Dose: 10 mg Carvedilol (Coreg) 6.25 mg PO BID [facility] Last Admin: 11/15/16 09:37 Dose: 6.25 mg Docusate Sodium (Colace) 100 mg PO BID [facility] Last Admin: 11/15/16 09:39 Dose: 100 mg Dronabinol (Marinol) 2.5 mg PO BID [facility] Last Admin: 11/15/16 09:39 Dose: 2.5 mg Ergocalciferol (Drisdol 50,000 Intl Units Cap) 1 cap PO Q7D [facility] Last Admin: 11/11/16 11:10 Dose: 1 cap Meropenem 1g/NS 100mL IVPB (Meropenem 1g/Ns 100ml Ivpb) 1 gm in 100 mls @ 100 mls/hr IVPB Q12 [facility] PRN Reason: Protocol Stop: 11/21/16 11:08 Last Admin: 11/15/16 09:41 Dose: 100 mls/hr Insulin Detemir (Levemir) 10 unit SC DAILY [facility] Last Admin: 11/12/16 11:14 Dose: 10 unit Insulin Human Regular (Humulin R Med) 0 units SC ACHS [facility] PRN Reason: Protocol Last Admin: 11/15/16 12:51 Dose: 1 units Losartan Potassium (Cozaar) 75 mg PO DAILY [facility] Last Admin: 11/15/16 09:40 Dose: 75 mg Montelukast Sodium (Singulair) 10 mg PO HS [facility] Last Admin: 11/14/16 21:56 Dose: 10 mg Oxycodone/Acetaminophen (Percocet 5/325 Mg Tab) 1 tab PO Q6H PRN PRN Reason: Pain, severe (8-10) Stop: 11/17/16 09:39 Last Admin: 11/15/16 08:19 Dose: 1 tab Pantoprazole Sodium (Protonix Ec Tab) 40 mg PO 0600 [facility] Last Admin: 11/15/16 06:24 Dose: 40 mg - Labs Labs: 11/15/16 06:42 11/15/16 06:42 PT 10.7 Seconds (9.9-11.8) 11/03/16 22:36 INR 0.99 (0.93-1.08) 11/03/16 22:36 APTT 32.4 Seconds (23.7-30.8) H 11/03/16 22:36 - Constitutional Appears: Well, Non-toxic, No Acute Distress - Extremities Exam Additional comments: VASC: DP/PT pulses are non-palpable bilaterally, BUILDINGS PAINTER: > 3 sec to all digits, Temp gradient: cool to cool from proximal to distal, no pitting or non-pitting edema noted bilaterally DERM: hyperpigmented, necrotic, and gangrenous 3rd digit with dorsum of the right forefoot wound, wound bed appears to to be 100% fibrotic, no periwound erythema, serosanguinous drainage, no active bleeding, no probe to bone, no ascending cellulitis, no undermining or tunneling, no clinical suspicion of active infection. No bone or tendons exposed through the wound. Skin appears thin and friable. NEURO: Protective sensation grossly diminished ORTHO: Tenderness to palpation of the 3rd digit and wound on the right foot - Neurological Exam Neurological Exam: Alert, Awake, Oriented x3 - Psychiatric Exam Psychiatric exam: Normal Affect, Normal Mood Assessment and Plan - Assessment and Plan (Free Text) Assessment: 81 year old female with Madrigal grade III ulceration to right foot and severe critical limb ischemia. Plan: Patient seen and evaluated with attending, Dr. Garrido Chart, vitals, labs reviewed = afebrile, WBC WNL @ 6.6 Right foot wound cleansed with hydrogen peroxide and dressed with telfa and DSD - Patient not a good surgical candidate due to high probability of non-heaing given vascular status - Continue local wound care to dorsum of right foot Patient to wear offloading boots at all times while in bed Per ID, continue Zyvox and Merrem. Patient will need 4 weeks IV abx Per medicine, case management consulted for discharge planning and LUCINA placement Podiatry will continue to follow patient while in house <Marquez Garrido - Last Filed: 11/16/16 11:35> Objective - Vital Signs/Intake and Output Vital Signs (last 24 hours): Temp Pulse Resp BP Pulse Ox 98.4 F 61 19 164/69 H 98 11/16/16 08:40 11/16/16 08:40 11/16/16 08:40 11/16/16 08:40 11/16/16 08:40 Intake and Output: 11/16/16 11/16/16 06:59 18:59 Intake Total 220 Output Total 1100 Balance -880 - Medications Medications: Current Medications Acetaminophen (Tylenol 325mg Tab) 650 mg PO Q6H PRN PRN Reason: Fever >100.4 F Last Admin: 11/14/16 05:05 Dose: 650 mg Amlodipine Besylate (Norvasc) 5 mg PO DAILY [facility] Last Admin: 11/16/16 10:54 Dose: 5 mg Aspirin (Aspirin Chewable) 81 mg PO DAILY [facility] Last Admin: 11/16/16 10:51 Dose: 81 mg Atorvastatin Calcium (Lipitor) 10 mg PO DIN [facility] Last Admin: 11/15/16 18:04 Dose: 10 mg Carvedilol (Coreg) 6.25 mg PO BID [facility] Last Admin: 11/16/16 10:51 Dose: 6.25 mg Docusate Sodium (Colace) 100 mg PO BID [facility] Last Admin: 11/16/16 10:51 Dose: 100 mg Dronabinol (Marinol) 2.5 mg PO BID [facility] Last Admin: 11/16/16 10:54 Dose: 2.5 mg Ergocalciferol (Drisdol 50,000 Intl Units Cap) 1 cap PO Q7D [facility] Last Admin: 11/11/16 11:10 Dose: 1 cap Meropenem 1g/NS 100mL IVPB (Meropenem 1g/Ns 100ml Ivpb) 1 gm in 100 mls @ 100 mls/hr IVPB Q12 [facility] PRN Reason: Protocol Stop: 11/21/16 11:08 Last Admin: 11/16/16 10:54 Dose: 100 mls/hr Insulin Detemir (Levemir) 10 unit SC DAILY [facility] Last Admin: 11/12/16 11:14 Dose: 10 unit Insulin Human Regular (Humulin R Med) 0 units SC ACHS [facility] PRN Reason: Protocol Last Admin: 11/16/16 08:23 Dose: Not Given Losartan Potassium (Cozaar) 75 mg PO DAILY [facility] Last Admin: 11/16/16 10:53 Dose: 75 mg Montelukast Sodium (Singulair) 10 mg PO HS [facility] Last Admin: 11/15/16 21:57 Dose: 10 mg Oxycodone/Acetaminophen (Percocet 5/325 Mg Tab) 1 tab PO Q6H PRN PRN Reason: Pain, severe (8-10) Stop: 11/17/16 09:39 Last Admin: 11/16/16 10:51 Dose: 1 tab Pantoprazole Sodium (Protonix Ec Tab) 40 mg PO 0600 [facility] Last Admin: 11/16/16 06:55 Dose: 40 mg - Labs Labs: 11/16/16 07:00 11/16/16 07:00 PT 10.7 Seconds (9.9-11.8) 11/03/16 22:36 INR 0.99 (0.93-1.08) 11/03/16 22:36 APTT 32.4 Seconds (23.7-30.8) H 11/03/16 22:36 Attending/Attestation - Attestation I have personally seen and examined this patient.: Yes I have fully participated in the care of the patient.: Yes I have reviewed all pertinent clinical information, including history, physical exam and plan: Yes
--- NOTE | 2016-11-15 18:23 | RAD ---
HISTORY: placement of line COMPARISON: Chest x-ray performed 11/12/16. TECHNIQUE: Chest, one view. FINDINGS: Left-sided PICC appears to extend to the level the SVC but is directed superiorly and should be repositioned. LUNGS: Left basilar atelectasis/ infiltrate and or small pleural effusion. No definite pneumothorax. Please note that chest x-ray has limited sensitivity for the detection of pulmonary masses. CARDIOVASCULAR: Cardiomegaly. Atherosclerotic calcifications. OSSEOUS STRUCTURES: Osseous demineralization. Degenerative changes. VISUALIZED UPPER ABDOMEN: Unremarkable. OTHER FINDINGS: None. IMPRESSION: Left-sided PICC appears to extend to the level the SVC but is directed superiorly and should be repositioned. Cardiomegaly. Atherosclerotic calcifications. Left basilar atelectasis/infiltrate and or small pleural effusion. Line placement and recommendations discussed with TINY Linares on 11/15/16 at 6:20 p.m.
--- NOTE | 2016-11-15 21:18 | CP.PCM.PN ---
<Goyo Lepe - Last Filed: 11/15/16 21:15> Subjective - Date & Time of Evaluation Date of Evaluation: 11/15/16 Time of Evaluation: 21:15 - Subjective Subjective: Patient has been seen and examined. She reports RUE and distal LLE pain which kept her up at night. Still reports having no appetite. Denies CP, SOB, Abdominal pain,N/V/D or constipation. Objective - Vital Signs/Intake and Output Vital Signs (last 24 hours): Temp Pulse Resp BP Pulse Ox 98.4 F 63 18 176/76 H 100 11/15/16 16:00 11/15/16 16:00 11/15/16 16:00 11/15/16 16:00 11/15/16 16:00 Intake and Output: 11/15/16 11/16/16 18:59 06:59 Intake Total 240 Balance 240 - Medications Medications: Current Medications Acetaminophen (Tylenol 325mg Tab) 650 mg PO Q6H PRN PRN Reason: Fever >100.4 F Last Admin: 11/14/16 05:05 Dose: 650 mg Amlodipine Besylate (Norvasc) 5 mg PO DAILY [facility] Last Admin: 11/15/16 18:05 Dose: 5 mg Aspirin (Aspirin Chewable) 81 mg PO DAILY [facility] Last Admin: 11/15/16 09:38 Dose: 81 mg Atorvastatin Calcium (Lipitor) 10 mg PO DIN [facility] Last Admin: 11/15/16 18:04 Dose: 10 mg Carvedilol (Coreg) 6.25 mg PO BID [facility] Last Admin: 11/15/16 18:04 Dose: 6.25 mg Docusate Sodium (Colace) 100 mg PO BID [facility] Last Admin: 11/15/16 18:04 Dose: 100 mg Dronabinol (Marinol) 2.5 mg PO BID [facility] Last Admin: 11/15/16 18:04 Dose: 2.5 mg Ergocalciferol (Drisdol 50,000 Intl Units Cap) 1 cap PO Q7D [facility] Last Admin: 11/11/16 11:10 Dose: 1 cap Meropenem 1g/NS 100mL IVPB (Meropenem 1g/Ns 100ml Ivpb) 1 gm in 100 mls @ 100 mls/hr IVPB Q12 [facility] PRN Reason: Protocol Stop: 11/21/16 11:08 Last Admin: 11/15/16 09:41 Dose: 100 mls/hr Insulin Detemir (Levemir) 10 unit SC DAILY [facility] Last Admin: 11/12/16 11:14 Dose: 10 unit Insulin Human Regular (Humulin R Med) 0 units SC ACHS [facility] PRN Reason: Protocol Last Admin: 11/15/16 17:43 Dose: 2 units Losartan Potassium (Cozaar) 75 mg PO DAILY [facility] Last Admin: 11/15/16 09:40 Dose: 75 mg Montelukast Sodium (Singulair) 10 mg PO HS [facility] Last Admin: 11/14/16 21:56 Dose: 10 mg Oxycodone/Acetaminophen (Percocet 5/325 Mg Tab) 1 tab PO Q6H PRN PRN Reason: Pain, severe (8-10) Stop: 11/17/16 09:39 Last Admin: 11/15/16 08:19 Dose: 1 tab Pantoprazole Sodium (Protonix Ec Tab) 40 mg PO 0600 [facility] Last Admin: 11/15/16 06:24 Dose: 40 mg - Labs Labs: 11/15/16 06:42 11/15/16 06:42 PT 10.7 Seconds (9.9-11.8) 11/03/16 22:36 INR 0.99 (0.93-1.08) 11/03/16 22:36 APTT 32.4 Seconds (23.7-30.8) H 11/03/16 22:36 - Constitutional Appears: Non-toxic, No Acute Distress - Head Exam Head Exam: ATRAUMATIC, NORMAL INSPECTION, NORMOCEPHALIC - 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 absent: Rales - Cardiovascular Exam Cardiovascular Exam: +S1, +S2 - GI/Abdominal Exam GI & Abdominal Exam: Soft, Tenderness - Extremities Exam Additional comments: Right upper extremity swelling (improving). RLE 3 digit hyperpigmented and necrotic with proximal Madrigal grade 3 ulceration - Neurological Exam Neurological Exam: Alert, Awake, Oriented x3 - Psychiatric Exam Psychiatric exam: Normal Affect, Normal Mood Assessment and Plan - Assessment and Plan (Free Text) Assessment: 81F with PMH IDDM, HTN, HLD, CVA, presents for right 3rd toe discoloration, right distal foot ulcer, uncontrolled HTN, hyperglycemia Plan: Right distal foot ulcer near right 3rd toe/necrotic R 3rd toe: -Foot Xray: Showed soft tissue swelling w/o acute articular/osseous abnormality , and no signs of osteomyelitis. -Vascular consult ordered (Dr. Martinez) - recs appreciated. - Podiatry recs appreciated. - MRI shows increased signal density in Bone marrow but likely artifact - Bone scan positive - MRA read No evidence of iliac stenosis or occlusion. Focal stenosis in right proximal and distal SFA. Occluded anterior tibial. Single vessel runoff to left ankle via the peroneal. Anterior and posterior tibial arteries are occluded -went for arteriogram 3 days ago -Blood culture shows no growth after 5 days. Wound cultures show Pseudomonas A. - Cont. cefepime. Per ID, patient will need 4 weeks of antibiotics, weekly CBC , SMA 18, sedimentation rate, and CRP. -Per podiatry, patient is not a suitable candidate for surgery due to poor blood flow. Will wear offloading boot. Anorexia -Electrical And Instrument Technician ordered -Marinol Anemia of Chronic Disease -Consider Iron Supplementation -Monitor HgB. Transfuse if Hgb < 7 -consent in chart. Hypertension: - C/w home meds carvedilol and losartan/hctz IDDM: - hold home oral antidiabetics - c.w home levemir and on ISS. -hold insulin for sugars > 400 Hx of HLD: - c/w lovastatin Hx of asthma: -c/w singulair DVT ppx: SCDs Patient seen, examined, and discussed with Attending Goyo Lepe - PGY-1 <Yara CAMACHO,[place] - Last Filed: 11/16/16 15:03> Objective - Vital Signs/Intake and Output Vital Signs (last 24 hours): Temp Pulse Resp BP Pulse Ox 98.4 F 61 19 164/69 H 98 11/16/16 08:40 11/16/16 08:40 11/16/16 08:40 11/16/16 08:40 11/16/16 08:40 Intake and Output: 11/16/16 11/16/16 06:59 18:59 Intake Total 220 300 Output Total 1100 Balance -880 300 - Medications Medications: Current Medications Acetaminophen (Tylenol 325mg Tab) 650 mg PO Q6H PRN PRN Reason: Fever >100.4 F Last Admin: 11/14/16 05:05 Dose: 650 mg Amlodipine Besylate (Norvasc) 5 mg PO DAILY [facility] Last Admin: 11/16/16 10:54 Dose: 5 mg Aspirin (Aspirin Chewable) 81 mg PO DAILY [facility] Last Admin: 11/16/16 10:51 Dose: 81 mg Atorvastatin Calcium (Lipitor) 10 mg PO DIN [facility] Last Admin: 11/15/16 18:04 Dose: 10 mg Carvedilol (Coreg) 6.25 mg PO BID [facility] Last Admin: 11/16/16 10:51 Dose: 6.25 mg Docusate Sodium (Colace) 100 mg PO BID [facility] Last Admin: 11/16/16 10:51 Dose: 100 mg Dronabinol (Marinol) 2.5 mg PO BID [facility] Last Admin: 11/16/16 10:54 Dose: 2.5 mg Ergocalciferol (Drisdol 50,000 Intl Units Cap) 1 cap PO Q7D [facility] Last Admin: 11/11/16 11:10 Dose: 1 cap Meropenem 1g/NS 100mL IVPB (Meropenem 1g/Ns 100ml Ivpb) 1 gm in 100 mls @ 100 mls/hr IVPB Q12 [facility] PRN Reason: Protocol Stop: 11/21/16 11:08 Last Admin: 11/16/16 10:54 Dose: 100 mls/hr Insulin Detemir (Levemir) 10 unit SC DAILY [facility] Last Admin: 11/12/16 11:14 Dose: 10 unit Insulin Human Regular (Humulin R Med) 0 units SC ACHS [facility] PRN Reason: Protocol Last Admin: 11/16/16 12:22 Dose: 7 units Losartan Potassium (Cozaar) 75 mg PO DAILY [facility] Last Admin: 11/16/16 10:53 Dose: 75 mg Montelukast Sodium (Singulair) 10 mg PO HS [facility] Last Admin: 11/15/16 21:57 Dose: 10 mg Oxycodone/Acetaminophen (Percocet 5/325 Mg Tab) 1 tab PO Q6H PRN PRN Reason: Pain, severe (8-10) Stop: 11/17/16 09:39 Last Admin: 11/16/16 10:51 Dose: 1 tab Pantoprazole Sodium (Protonix Ec Tab) 40 mg PO 0600 [facility] Last Admin: 11/16/16 06:55 Dose: 40 mg - Labs Labs: 11/16/16 07:00 11/16/16 07:00 PT 10.7 Seconds (9.9-11.8) 11/03/16 22:36 INR 0.99 (0.93-1.08) 11/03/16 22:36 APTT 32.4 Seconds (23.7-30.8) H 11/03/16 22:36 Attending/Attestation - Attestation I have personally seen and examined this patient.: Yes I have fully participated in the care of the patient.: Yes I have reviewed all pertinent clinical information, including history, physical exam and plan: Yes Notes (Text): 11/16/16 15:02 Patient was seen and examined with medical services manager. Agreed with resident assessment and plan. 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 Cj Martinez and underwent angioplasty last week, no plan for any surgical intervention as per Podiatry .Wound cultures are growing Pseudominas, case was discussed with ID, plan to treat with IV antibiotics cefepime/Meropenem for 4 weeks.PICC line has been placed.Patient is at her base line and is awaiting for placement.. Prognosis is guarded. Management plan was discussed in detail with patient family. Education was provided.
[2016-11-16] MEDS: Pantoprazole 40 mg EC Tab PO SCH (06:55)
[2016-11-16 07:35] LABS: EOS # 0.6 (0.0-0.7); EOS % 10.9 % (1.5-5.0); GRAN # 2.8 (1.4-6.5); GRAN % 50.9 % (50.0-68.0); HEMATOCRIT 25.7 % (36.0-48.0); LYMPH # 1.3 (1.2-3.4); MEAN CELL VOLUME 81.6 fl (80.0-105.0); MEAN CORPUSCULAR HEMOGLOBIN 25.4 pg (25.0-35.0); MEAN CORPUSCULAR HGB CONC 31.1 g/dl (31.0-37.0); MEAN PLATELET VOLUME 9.3 fl (7.0-11.0); MONO # 0.8 (0.1-0.6); MONO % 15.2 % (1.0-6.0); RED CELL DISTRIBUTION WIDTH 14.5 % (11.5-14.5); WHITE BLOOD COUNT 5.5 10^3/ul (4.5-11.0)
[2016-11-16 08:08] LABS: ALB/GLOB RATIO 0.9 (1.1-1.8); BILIRUBIN,TOTAL 0.3 mg/dL (0.2-1.3); CALCIUM 9.2 mg/dL (8.4-10.5); POTASSIUM 4.4 mmol/L (3.6-5.0)
[2016-11-16] MEDS: Insulin Reg-MEDIUM-Coverage SC SCH ×3 (08:23→17:14)
--- NOTE | 2016-11-16 09:48 | RAD ---
HISTORY: PICC CATHETER POSITION AFTER ADJUSTMENT COMPARISON: 11/15/2016 at 1650 hour FINDINGS: LUNGS: The alpha previously referenced left basal atelectasis/infiltrate with possible small left pleural effusion is similar in appearance. PLEURA: Small left pleural effusion [id number]. No pneumothorax apparent. CARDIOVASCULAR: Cardiomegaly as before. The prior left PICC line has been repositioned -the tip now is approximately 2 cm cephalad to the caval atrial junction. OSSEOUS STRUCTURES: Minimal degenerative changes VISUALIZED UPPER ABDOMEN: Normal. OTHER FINDINGS: None. IMPRESSION: Interval repositioning of the PICC line -tip in superior vena cava. Left basal consolidation consistent with infiltrate and/or atelectasis with small left pleural effusion -similar-appearing. Cardiomegaly-similar
[2016-11-16] MEDS: Oxycodone/Acetaminophen 5/325 mg Tab PO PRN (10:51)
[2016-11-16] MEDS: Meropenem 1g/NS 100mL IVPB 1 GM/100 ML PIGGYBACK IVPB SCH (10:54)
--- NOTE | 2016-11-16 11:00 | PN ---
DATE: 11/16/2016 SUBJECTIVE: The patient is in bed with discomfort in her right lower extremity which is bandaged at the foot. PHYSICAL EXAMINATION: VITAL SIGNS: Blood pressure is 164/70, the heart rate is in the 60s. NECK: Negative JVD. LUNGS: Without rales. HEART: S1, S2. EXTREMITIES: Right lower extremity is bandaged. LABORATORY DATA: Hemoglobin is 8. Chemistry, glucose is 138. IMPRESSION: 1. Ischemic right lower extremity. 2. Severe peripheral vascular disease. 3. Diabetes mellitus. 4. Anemia. Given these findings, the patient will need long-term antibiotics. I have discussed with the family that once her infection and her ischemia on the right lower extremity has been resolved, she should have a stress test to rule out significant coronary disease in which she would be at high risk for. Cj May MD
--- NOTE | 2016-11-16 14:28 | CP.PCM.PN ---
Subjective - Date & Time of Evaluation Date of Evaluation: 11/16/16 Time of Evaluation: 15:51 - Subjective Subjective: Podiatry Progress Note - Dr. Arevalo 81 year old female patient PMHx IDDM, HTN, HLD seen at bedside for 3rd gangrenous digit and Madrigal grade I ulceration on the dorsum of the right foot. Patient seen at bedside resting comfortably, AAOx3 and NAD. Patient's family is accompanied at bedside. Patient denies any acute events overnight. Patient reports continued pain to right foot. Patient and patient's family aware she is to be discharged tomorrow, and are aware patient is to follow up with Dr. Arevalo in office next week for outpatient care. Patient denies N/V/F/D/C/SOB/ calf pain. No other pedal complaints at this time. Objective - Vital Signs/Intake and Output Vital Signs (last 24 hours): Temp Pulse Resp BP Pulse Ox 98.4 F 61 19 164/69 H 98 11/16/16 08:40 11/16/16 08:40 11/16/16 08:40 11/16/16 08:40 11/16/16 08:40 Intake and Output: 11/16/16 11/16/16 06:59 18:59 Intake Total 220 300 Output Total 1100 Balance -880 300 - Medications Medications: Current Medications Acetaminophen (Tylenol 325mg Tab) 650 mg PO Q6H PRN PRN Reason: Fever >100.4 F Last Admin: 11/14/16 05:05 Dose: 650 mg Amlodipine Besylate (Norvasc) 5 mg PO DAILY [facility] Last Admin: 11/16/16 10:54 Dose: 5 mg Aspirin (Aspirin Chewable) 81 mg PO DAILY [facility] Last Admin: 11/16/16 10:51 Dose: 81 mg Atorvastatin Calcium (Lipitor) 10 mg PO DIN [facility] Last Admin: 11/15/16 18:04 Dose: 10 mg Carvedilol (Coreg) 6.25 mg PO BID [facility] Last Admin: 11/16/16 10:51 Dose: 6.25 mg Docusate Sodium (Colace) 100 mg PO BID [facility] Last Admin: 11/16/16 10:51 Dose: 100 mg Dronabinol (Marinol) 2.5 mg PO BID [facility] Last Admin: 11/16/16 10:54 Dose: 2.5 mg Ergocalciferol (Drisdol 50,000 Intl Units Cap) 1 cap PO Q7D [facility] Last Admin: 11/11/16 11:10 Dose: 1 cap Meropenem 1g/NS 100mL IVPB (Meropenem 1g/Ns 100ml Ivpb) 1 gm in 100 mls @ 100 mls/hr IVPB Q12 [facility] PRN Reason: Protocol Stop: 11/21/16 11:08 Last Admin: 11/16/16 10:54 Dose: 100 mls/hr Insulin Detemir (Levemir) 10 unit SC DAILY [facility] Last Admin: 11/12/16 11:14 Dose: 10 unit Insulin Human Regular (Humulin R Med) 0 units SC ACHS [facility] PRN Reason: Protocol Last Admin: 11/16/16 12:22 Dose: 7 units Losartan Potassium (Cozaar) 75 mg PO DAILY [facility] Last Admin: 11/16/16 10:53 Dose: 75 mg Montelukast Sodium (Singulair) 10 mg PO HS [facility] Last Admin: 11/15/16 21:57 Dose: 10 mg Oxycodone/Acetaminophen (Percocet 5/325 Mg Tab) 1 tab PO Q6H PRN PRN Reason: Pain, severe (8-10) Stop: 11/17/16 09:39 Last Admin: 11/16/16 10:51 Dose: 1 tab Pantoprazole Sodium (Protonix Ec Tab) 40 mg PO 0600 [facility] Last Admin: 11/16/16 06:55 Dose: 40 mg - Labs Labs: 11/16/16 07:00 11/16/16 07:00 PT 10.7 Seconds (9.9-11.8) 11/03/16 22:36 INR 0.99 (0.93-1.08) 11/03/16 22:36 APTT 32.4 Seconds (23.7-30.8) H 11/03/16 22:36 - Constitutional Appears: Well, Non-toxic, No Acute Distress - Extremities Exam Additional comments: VASC: DP/PT pulses are non-palpable bilaterally, [employer]OCIATE [employer] JUDGE: > 3 sec to all digits, Temp gradient: cool to cool from proximal to distal, no pitting or non-pitting edema noted bilaterally DERM: hyperpigmented, necrotic, and gangrenous 3rd digit with dorsum of the right forefoot wound, wound bed appears to to be 100% fibrotic, no periwound erythema, serosanguinous drainage, no active bleeding, no probe to bone, no ascending cellulitis, no undermining or tunneling, no clinical suspicion of active infection. No bone or tendons exposed through the wound. Skin appears thin and friable. NEURO: Protective sensation grossly diminished ORTHO: Tenderness to palpation of the 3rd digit and wound on the right foot - Neurological Exam Neurological Exam: Alert, Awake, Oriented x3 - Psychiatric Exam Psychiatric exam: Normal Affect, Normal Mood Assessment and Plan - Assessment and Plan (Free Text) Assessment: 81 year old female with Madrigal grade III ulceration to right foot and severe critical limb ischemia. Plan: Patient seen and evaluated with attending, Dr. Arevalo Chart, vitals, labs reviewed = afebrile, WBC @ 5.5 Betadine applied to left foot and dressed with adaptic and DSD Continue wearing offloading boots at all times while in bed Per ID, continue Zyvox and Merrem. Patient will need 4 weeks IV abx Patient to be discharge to [facility] tomorrow NURSING ORDERS FOR DAILY DRESSING CHANGES: - Apply betadine to gangrenous 3rd digit, right foot - Apply thin layer of Bactroban to open wound on dorsum of forefoot - Place adaptic in between 2nd and 3rd webspaces, on either side of 3rd digit, and adaptic over open wound - ABD pad on dorsum of forefoot - Wrap right foot with yola Patient to follow up with Dr. Arevalo in office next week 11/22/16 for follow-up care Will monitor 3rd digit for eventual autoamputation w/o infection. If patient to get right foot infection, will evaluate need for right BKA. Patient and patient' s family demonstrate verbal understanding. Podiatry will continue to follow patient while in house
--- NOTE | 2016-11-16 16:21 | CP.PCM.DIS ---
<Goyo Lepe - Last Filed: 11/16/16 19:42> Provider - Provider Date of Admission: 11/04/16 00:39 Attending physician: Jericho Livingston MD Primary care physician: Wood Rossi MD Consults: Podiatry: Irina ID: [email or web address] IR: Cj Martinez Cardiology: Lalo Time Spent in preparation of Discharge (in minutes): 65 Diagnosis - Discharge Diagnosis (1) DM foot ulcer Status: Acute Hospital Course - Lab Results Lab Results: Micro Results 11/12/16 12:00 Blood Blood Culture - Preliminary NO GROWTH AFTER 4 DAYS 11/12/16 11:40 Blood Blood Culture - Preliminary NO GROWTH AFTER 4 DAYS 11/12/16 11:00 Stool C. difficile Antigen & Toxin A,B (M - Final 11/04/16 02:47 Foot - Right Gram Stain - Final 11/04/16 02:47 Foot - Right Wound Culture - Final Pseudomonas Aeruginosa Most Recent Lab Values WBC 5.5 10^3/ul (4.5-11.0) 11/16/16 07:00 RBC 3.15 10^6/uL (3.5-6.1) L 11/16/16 07:00 Hgb 8.0 g/dL (12.0-16.0) L 11/16/16 07:00 Hct 25.7 % (36.0-48.0) L 11/16/16 07:00 MCV 81.6 fl (80.0-105.0) 11/16/16 07:00 MCH 25.4 pg (25.0-35.0) 11/16/16 07:00 MCHC 31.1 g/dl (31.0-37.0) 11/16/16 07:00 RDW 14.5 % (11.5-14.5) 11/16/16 07:00 Plt Count 316 10^3/uL (120.0-450.0) 11/16/16 07:00 MPV 9.3 fl (7.0-11.0) 11/16/16 07:00 Gran % 50.9 % (50.0-68.0) 11/16/16 07:00 Lymph % (Auto) 23.0 % (22.0-35.0) 11/16/16 07:00 [place] % (Auto) 15.2 % (1.0-6.0) H 11/16/16 07:00 Eos % (Auto) 10.9 % (1.5-5.0) H 11/16/16 07:00 Baso % (Auto) 0.0 % (0.0-3.0) 11/16/16 07:00 Gran # 2.80 (1.4-6.5) 11/16/16 07:00 Lymph # 1.3 (1.2-3.4) 11/16/16 07:00 [place] # 0.8 (0.1-0.6) H 11/16/16 07:00 Eos # 0.6 (0.0-0.7) 11/16/16 07:00 Baso # 0.00 K/mm3 (0.0-2.0) 11/16/16 07:00 ESR 70 mm/hr (0.0-20.0) H 11/04/16 06:15 PT 10.7 Seconds (9.9-11.8) 11/03/16 22:36 INR 0.99 (0.93-1.08) 11/03/16 22:36 APTT 32.4 Seconds (23.7-30.8) H 11/03/16 22:36 pO2 36 mm/Hg (30-55) 11/03/16 22:36 VBG pH 7.34 (7.32-7.43) 11/03/16 22:36 VBG pCO2 54.0 (40-60) 11/03/16 22:36 VBG HCO3 29.1 mmol/l (21-28) H 11/03/16 22:36 VBG Total CO2 30.8 mmol.L (22-28) H 11/03/16 22:36 VBG O2 Sat (Calc) 75.4 % (40-65) H 11/03/16 22:36 VBG Base Excess 2.5 mmol/L (0.0-2.0) H 11/03/16 22:36 VBG Potassium 4.8 mmol/L (3.6-5.2) 11/03/16 22:36 Sodium 135.0 mmol/L (132-148) 11/03/16 22:36 Chloride 103.0 mmol/L (98-107) 11/03/16 22:36 Glucose 339 mg/dl (65-105) H 11/03/16 22:36 Lactate 1.1 mmol/L (0.7-2.1) 11/03/16 22:36 FiO2 21.0 % 11/03/16 22:36 Sodium 138 mmol/L (132-148) 11/16/16 07:00 Potassium 4.4 mmol/L (3.6-5.0) 11/16/16 07:00 Chloride 99 mmol/L (98-107) 11/16/16 07:00 Carbon Dioxide 31 mmol/L (21-33) 11/16/16 07:00 Anion Gap 12 (10-20) 11/16/16 07:00 BUN 22 mg/dL (7-21) H 11/16/16 07:00 Creatinine 1.3 mg/dL (0.5-1.4) 11/16/16 07:00 Est GFR ( Amer) 47 11/16/16 07:00 Est GFR (Non-Af Amer) 39 11/16/16 07:00 POC Glucose (mg/dL) 340 mg/dL (65-110) H 11/16/16 10:54 Random Glucose 138 mg/dL (70-110) H 11/16/16 07:00 Calcium 9.2 mg/dL (8.4-10.5) 11/16/16 07:00 Iron 15 ug/dL (45-180) L 11/04/16 06:15 TIBC 251 ug/dL (265-497) L 11/04/16 06:15 % Saturation 6 % (20-55) L 11/04/16 06:15 Ferritin 98.7 ng/mL 11/04/16 06:15 Total Bilirubin 0.3 mg/dL (0.2-1.3) 11/16/16 07:00 AST 35 U/L (14-36) 11/16/16 07:00 ALT 36 U/L (7-56) 11/16/16 07:00 Alkaline Phosphatase 100 U/L (38-126) 11/16/16 07:00 Total Creatine Kinase 62 U/L (35-230) 11/04/16 05:46 C-React Prot High Sens > 15.00 mg/L (1.00-3.00) H 11/04/16 06:15 Total Protein 6.0 g/dL (5.8-8.3) 11/16/16 07:00 Albumin 2.8 g/dL (3.0-4.8) L 11/16/16 07:00 Globulin 3.2 gm/dL 11/16/16 07:00 Albumin/Globulin Ratio 0.9 (1.1-1.8) L 11/16/16 07:00 Triglycerides 101 mg/dL (35-160) 11/04/16 06:15 Cholesterol 136 mg/dL (130-200) 11/04/16 06:15 LDL Cholesterol Direct 68 mg/dL (0-129) 11/04/16 06:15 HDL Cholesterol 39 mg/dL (29-60) 11/04/16 06:15 Vitamin B12 > 1000 pg/mL (239-931) H 11/04/16 06:15 Folate 10.2 ng/mL 11/04/16 06:15 Procalcitonin 0.42 NG/ML (0.19-0.49) 11/12/16 12:00 Venous Blood Potassium 4.8 mmol/L (3.6-5.2) 11/03/16 22:36 Urine Color yellow (YELLOW) 11/13/16 06:00 Urine Appearance Clear (CLEAR) 11/13/16 06:00 Urine pH 5.5 (4.7-8.0) 11/13/16 06:00 Ur Specific [place] 1.010 (1.005-1.035) 11/13/16 06:00 Urine Protein 30 mg/dL (<30 mg/dL) H 11/13/16 06:00 Urine Glucose (UA) Negative mg/dL (NEGATIVE) 11/13/16 06:00 Urine Ketones Negative mg/dL (NEGATIVE) 11/13/16 06:00 Urine Blood Moderate (NEGATIVE) H 11/13/16 06:00 Urine Nitrate Negative (NEGATIVE) 11/13/16 06:00 Urine Bilirubin Negative (NEGATIVE) 11/13/16 06:00 Urine Urobilinogen 0.2 E.U./dL (<1 E.U./dL) 11/13/16 06:00 Ur Leukocyte Esterase Trace Phillip/uL (NEGATIVE) H 11/13/16 06:00 Urine RBC 15 - 20 /hpf (0-2) 11/13/16 06:00 Urine WBC 2 - 5 /hpf (0-6) 11/13/16 06:00 Ur Epithelial Cells 6 - 8 /hpf (0-5) 11/13/16 06:00 Amorphous Sediment Trace 11/13/16 06:00 Urine Bacteria Trace (NEG) 11/13/16 06:00 - Hospital Course Hospital Course: This patient is an 81 year old Vincentian speaking female with a PMHx of PVD, HTN, and diabetes who presented to [facility] with third toe hyperpigmentation with proximal Madrigal Grade 3 ulceration.. Patient hit her foot in the [place], 1 month prior to admission. Per patients family , there was bullae formation at the ulcer site which was drained by a doctor [place]. Patient presented with worsening of the ulcer with associated sharp pain, swelling, and erythema. During her stay (11/04-11/16). Podiatry, Wound care, ID, IR and cardiology were consulted. All relevant studies and procedure results are below. Patient was treated with IV antibiotics, and daily wound care. There was discussion of amputating the Right third too. Podiatry stated that patient was not a suitable candidate for surgery due to lack of blood flow to the toe. Hospital course was complicated with very low appetite so patient was put on appetite stimulant. Course was also complicated by hypoglycemia post insulin administration. Family requested that we do not give insulin because her current home medications drops her blood sugars to a point that she gets symptomatic hypoglycemic We held insulin for sugars < 400. We also changed her Levemir dose to 6 units at night at discharge and stopped her short acting insulin. Wound culture of the right foot grew pseudomonas aeruginosa, and she was positive for osteomyelitis. Blood cultures were negative. Patient will need to be on at least 4 weeks of IV antibiotics for treatment of her toe infection. PT recommended [facility]. She will go to [facility] to continue IV antibiotic and reconditioning. We will discharge her with a reduced Levemir dose. She was told to check her blood sugars at least 3 times a day. She will also be discharged with cefepime, marinol, Colace, Percocet, and Norvasc. She will need weekly cbc, cmp, and crp for 4 weeks after DC. Patient and family are agreeable to plan and medications. CXR (11/03) Lower lobe infiltrate/atelectasis. Obscured left hemidiagphragm Foot X-ray (11/03) Showed no evidence of osteomyelitis LE US (11/04) Severely abnormal right JUNG at rest. Right iliac occlusive disease , b/l tibial disease. LE US (11/05) No evidence of DVT Lower extremity MRI non diagnostic study due to artifact Bone Scan on (11/07) - positive for osteomyelitis of the Right 3rd toe Lower Ext MRA No evidence of iliac stenosis or occlusion. Focal stenoses in the rightproximal and distal SFA. Occluded anterior and posterior tibial arteries. Single vessel runoff to left ankle via peroneal. Echo (11/09) Normal Ef Arteriogram Successful right SFA and popliteal artery silver Hawk artherectomy and drug- eluting balloon angioplasty. Successful right peroneal artery orgin angioplasty. Severe b/l trifurcation, tibial and pedal occlusive disease. On the right, all 3 tibail vessels are occulded proximally. No named distal vessels are noted. B/l 60-70 percent proximal renal artery stenoses CXR (11/12) showed same finding as previous x-ray and questionable tiny right effusion. Patient seen, reviewed, and discussed with Attending Goyo Lepe PGY-1 - Date & Time of H&P Date of H&P: 11/16/16 Time of H&P: 12:00 Discharge Exam - Head Exam Head Exam: ATRAUMATIC, NORMAL INSPECTION, NORMOCEPHALIC - Eye Exam Eye Exam: absent: Scleral icterus Additional comments: Blind Right eye - ENT Exam ENT Exam: Mucous Membranes Moist - Respiratory Exam Respiratory Exam: Clear to PA & Lateral - Cardiovascular Exam Cardiovascular Exam: RRR, +S1, +S2 - GI/Abdominal Exam GI & Abdominal Exam: Normal Bowel Sounds, Soft. absent: Tenderness - Extremities Exam Additional comments: no pedal edema. R upper ext swelling from IV (improved), Right third toe hyperpigmented and necrotic with proximal Madrigal Grade III ulceration. - Back Exam Back exam: absent: CVA tenderness (L), CVA tenderness (R) - Neurological Exam Neurological exam: Alert, Oriented x3 - Psychiatric Exam Psychiatric exam: Normal Affect, Normal Mood - Skin Skin Exam: Dry, Intact, Normal Color, Warm Discharge Plan - Discharge Medications Prescriptions: Cefepime [Maxipime] 2 gm IV Q8 14 Days vial Insulin Detemir [Levemir] 6 unit SC HS 14 Days ml - Follow Up Plan Condition: STABLE Disposition: TRANSF TO SNF Instructions: Constipation (DC), Constipation (GEN), Fall Prevention (GEN) Additional Instructions: antibiotic: [id number] IV q8h for 4 weeks blood work cbc, cmp, crp weekly for 4 weeks Check sugars 3x daily before meals. Referrals: Wood Rossi MD [Primary Care Provider] - <Jericho Livingston MD - Last Filed: 11/17/16 07:59> Provider - Provider Date of Admission: 11/04/16 00:39 Attending physician: Jericho Livingston MD Primary care physician: Wood Rossi MD Hospital Course - Lab Results Lab Results: Micro Results 11/12/16 12:00 Blood Blood Culture - Preliminary NO GROWTH AFTER 4 DAYS 11/12/16 11:40 Blood Blood Culture - Preliminary NO GROWTH AFTER 4 DAYS 11/12/16 11:00 Stool C. difficile Antigen & Toxin A,B (M - Final 11/04/16 02:47 Foot - Right Gram Stain - Final 11/04/16 02:47 Foot - Right Wound Culture - Final Pseudomonas Aeruginosa Most Recent Lab Values WBC 5.5 10^3/ul (4.5-11.0) 11/16/16 07:00 RBC 3.15 10^6/uL (3.5-6.1) L 11/16/16 07:00 Hgb 8.0 g/dL (12.0-16.0) L 11/16/16 07:00 Hct 25.7 % (36.0-48.0) L 11/16/16 07:00 MCV 81.6 fl (80.0-105.0) 11/16/16 07:00 MCH 25.4 pg (25.0-35.0) 11/16/16 07:00 MCHC 31.1 g/dl (31.0-37.0) 11/16/16 07:00 RDW 14.5 % (11.5-14.5) 11/16/16 07:00 Plt Count 316 10^3/uL (120.0-450.0) 11/16/16 07:00 MPV 9.3 fl (7.0-11.0) 11/16/16 07:00 Gran % 50.9 % (50.0-68.0) 11/16/16 07:00 Lymph % (Auto) 23.0 % (22.0-35.0) 11/16/16 07:00 [place] % (Auto) 15.2 % (1.0-6.0) H 11/16/16 07:00 Eos % (Auto) 10.9 % (1.5-5.0) H 11/16/16 07:00 Baso % (Auto) 0.0 % (0.0-3.0) 11/16/16 07:00 Gran # 2.80 (1.4-6.5) 11/16/16 07:00 Lymph # 1.3 (1.2-3.4) 11/16/16 07:00 [place] # 0.8 (0.1-0.6) H 11/16/16 07:00 Eos # 0.6 (0.0-0.7) 11/16/16 07:00 Baso # 0.00 K/mm3 (0.0-2.0) 11/16/16 07:00 ESR 70 mm/hr (0.0-20.0) H 11/04/16 06:15 PT 10.7 Seconds (9.9-11.8) 11/03/16 22:36 INR 0.99 (0.93-1.08) 11/03/16 22:36 APTT 32.4 Seconds (23.7-30.8) H 11/03/16 22:36 pO2 36 mm/Hg (30-55) 11/03/16 22:36 VBG pH 7.34 (7.32-7.43) 11/03/16 22:36 VBG pCO2 54.0 (40-60) 11/03/16 22:36 VBG HCO3 29.1 mmol/l (21-28) H 11/03/16 22:36 VBG Total CO2 30.8 mmol.L (22-28) H 11/03/16 22:36 VBG O2 Sat (Calc) 75.4 % (40-65) H 11/03/16 22:36 VBG Base Excess 2.5 mmol/L (0.0-2.0) H 11/03/16 22:36 VBG Potassium 4.8 mmol/L (3.6-5.2) 11/03/16 22:36 Sodium 135.0 mmol/L (132-148) 11/03/16 22:36 Chloride 103.0 mmol/L (98-107) 11/03/16 22:36 Glucose 339 mg/dl (65-105) H 11/03/16 22:36 Lactate 1.1 mmol/L (0.7-2.1) 11/03/16 22:36 FiO2 21.0 % 11/03/16 22:36 Sodium 138 mmol/L (132-148) 11/16/16 07:00 Potassium 4.4 mmol/L (3.6-5.0) 11/16/16 07:00 Chloride 99 mmol/L (98-107) 11/16/16 07:00 Carbon Dioxide 31 mmol/L (21-33) 11/16/16 07:00 Anion Gap 12 (10-20) 11/16/16 07:00 BUN 22 mg/dL (7-21) H 11/16/16 07:00 Creatinine 1.3 mg/dL (0.5-1.4) 11/16/16 07:00 Est GFR ( Amer) 47 11/16/16 07:00 Est GFR (Non-Af Amer) 39 11/16/16 07:00 POC Glucose (mg/dL) 261 mg/dL (65-110) H 11/16/16 16:17 Random Glucose 138 mg/dL (70-110) H 11/16/16 07:00 Calcium 9.2 mg/dL (8.4-10.5) 11/16/16 07:00 Iron 15 ug/dL (45-180) L 11/04/16 06:15 TIBC 251 ug/dL (265-497) L 11/04/16 06:15 % Saturation 6 % (20-55) L 11/04/16 06:15 Ferritin 98.7 ng/mL 11/04/16 06:15 Total Bilirubin 0.3 mg/dL (0.2-1.3) 11/16/16 07:00 AST 35 U/L (14-36) 11/16/16 07:00 ALT 36 U/L (7-56) 11/16/16 07:00 Alkaline Phosphatase 100 U/L (38-126) 11/16/16 07:00 Total Creatine Kinase 62 U/L (35-230) 11/04/16 05:46 C-React Prot High Sens > 15.00 mg/L (1.00-3.00) H 11/04/16 06:15 Total Protein 6.0 g/dL (5.8-8.3) 11/16/16 07:00 Albumin 2.8 g/dL (3.0-4.8) L 11/16/16 07:00 Globulin 3.2 gm/dL 11/16/16 07:00 Albumin/Globulin Ratio 0.9 (1.1-1.8) L 11/16/16 07:00 Triglycerides 101 mg/dL (35-160) 11/04/16 06:15 Cholesterol 136 mg/dL (130-200) 11/04/16 06:15 LDL Cholesterol Direct 68 mg/dL (0-129) 11/04/16 06:15 HDL Cholesterol 39 mg/dL (29-60) 11/04/16 06:15 Vitamin B12 > 1000 pg/mL (239-931) H 11/04/16 06:15 Folate 10.2 ng/mL 11/04/16 06:15 Procalcitonin 0.42 NG/ML (0.19-0.49) 11/12/16 12:00 Venous Blood Potassium 4.8 mmol/L (3.6-5.2) 11/03/16 22:36 Urine Color yellow (YELLOW) 11/13/16 06:00 Urine Appearance Clear (CLEAR) 11/13/16 06:00 Urine pH 5.5 (4.7-8.0) 11/13/16 06:00 Ur Specific [place] 1.010 (1.005-1.035) 11/13/16 06:00 Urine Protein 30 mg/dL (<30 mg/dL) H 11/13/16 06:00 Urine Glucose (UA) Negative mg/dL (NEGATIVE) 11/13/16 06:00 Urine Ketones Negative mg/dL (NEGATIVE) 11/13/16 06:00 Urine Blood Moderate (NEGATIVE) H 11/13/16 06:00 Urine Nitrate Negative (NEGATIVE) 11/13/16 06:00 Urine Bilirubin Negative (NEGATIVE) 11/13/16 06:00 Urine Urobilinogen 0.2 E.U./dL (<1 E.U./dL) 11/13/16 06:00 Ur Leukocyte Esterase Trace Phillip/uL (NEGATIVE) H 11/13/16 06:00 Urine RBC 15 - 20 /hpf (0-2) 11/13/16 06:00 Urine WBC 2 - 5 /hpf (0-6) 11/13/16 06:00 Ur Epithelial Cells 6 - 8 /hpf (0-5) 11/13/16 06:00 Amorphous Sediment Trace 11/13/16 06:00 Urine Bacteria Trace (NEG) 11/13/16 06:00 Attending/Attestation - Attestation I have personally seen and examined this patient.: Yes I have fully participated in the care of the patient.: Yes I have reviewed all pertinent clinical information, including history, physical exam and plan: Yes Notes (Text): 11/17/16 07:53 Patient was seen and examined with bilingual medical assistant. Agreed with resident assessment and plan. 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 Cj Martinez and underwent angioplasty last week, no plan for any surgical intervention as per Podiatry .Wound cultures are growing Pseudominas, case was discussed with ID, plan to treat with IV antibiotics Meropenem for 4 weeks.PICC line has been placed.Patient will need weekly CBC,CMP and CRP while on antibiotics. Patient was having low blood sugar and her diabetic medications are adjusted , Levemir dose is reduced and Glyburide is discontinued. Prognosis is guarded. Management plan was discussed in detail with patient family. Education was provided.
[2016-11-16 18:39] VITALS: BP 157/67; PULSE 66; RESP 18; TEMP 98.5; O2SAT 100
== END 2016-11-16 19:54 | DRG 478 ==
LOC: ED 19:54 → ERH 11-04 00:39 → 5RNO 11-04 04:00 → 5RSO 11-08 18:37 → 2RSO 11-10 20:20 → 5RSO 11-11 05:56
PROVIDERS: ADMIT Internal Medicine; ATTEND Internal Medicine
PROC: 047K3Z1 Dilation of Right Femoral Artery using Drug-Coated Balloon, Percutaneous Approach (ICD-10-PCS; principal; 2016-11-10)
PROC: 047M3Z1 Dilation of Right Popliteal Artery using Drug-Coated Balloon, Percutaneous Approach (ICD-10-PCS; 2016-11-10)
PROC: 04CK3ZZ Extirpation of Matter from Right Femoral Artery, Percutaneous Approach (ICD-10-PCS; 2016-11-10)
PROC: 04CM3ZZ Extirpation of Matter from Right Popliteal Artery, Percutaneous Approach (ICD-10-PCS; 2016-11-10)
PROC: 047T3ZZ Dilation of Right Peroneal Artery, Percutaneous Approach (ICD-10-PCS; 2016-11-10)
PROC: B41DYZZ Fluoroscopy of Aorta and Bilateral Lower Extremity Arteries using Other Contrast (ICD-10-PCS; 2016-11-10)
PROC: 3E03328 Introduction of Oxazolidinones into Peripheral Vein, Percutaneous Approach (ICD-10-PCS; 2016-11-12)
DX: E11.52 Type 2 diabetes mellitus with diabetic peripheral angiopathy with gangrene (principal); E11.621 Type 2 diabetes mellitus with foot ulcer; L97.519 Non-pressure chronic ulcer of other part of right foot with unspecified severity; L03.115 Cellulitis of right lower limb; B96.5 Pseudomonas (aeruginosa) (mallei) (pseudomallei) as the cause of diseases classified elsewhere; E11.42 Type 2 diabetes mellitus with diabetic polyneuropathy; M86.9 Osteomyelitis, unspecified; E09.649 Drug or chemical induced diabetes mellitus with hypoglycemia without coma; I70.1 Atherosclerosis of renal artery; E11.65 Type 2 diabetes mellitus with hyperglycemia; I10 Essential (primary) hypertension; E78.00 Pure hypercholesterolemia, unspecified; D50.9 Iron deficiency anemia, unspecified; D63.8 Anemia in other chronic diseases classified elsewhere; E11.69 Type 2 diabetes mellitus with other specified complication; I35.0 Nonrheumatic aortic (valve) stenosis; R63.0 Anorexia; T38.3X5A Adverse effect of insulin and oral hypoglycemic [antidiabetic] drugs, initial encounter; J45.909 Unspecified asthma, uncomplicated; Z79.4 Long term (current) use of insulin; Z86.73 Personal history of transient ischemic attack (TIA), and cerebral infarction without residual deficits; Z83.3 Family history of diabetes mellitus

== ENCOUNTER 2017-01-12 06:21 | Day surgery (SDC) | payer OTHER ==
[2017-01-12] MEDS ORDERED: Lidocaine 2% Inj (20ml) ONE (07:12)
[2017-01-12] MEDS ORDERED: Bupivacaine 0.5% Inj(30mL) ONE (07:24)
[2017-01-12] MEDS ORDERED: Lidocaine 1% Inj (20ml) ONE (07:24)
[2017-01-12] MEDS ORDERED: Midazolam 2 MG/2 ML VIAL ONE (07:54)
[2017-01-12 08:07] VITALS: BMI 15.4
[2017-01-12] MEDS ORDERED: Labetalol 5 mg/ml Inj 20ML ONE (08:13)
[2017-01-12] MEDS ORDERED: Oxycodone/Acetaminophen 5/325 mg Tab PO PRN ×2 (08:45)
[2017-01-12] MEDS ORDERED: Lactated Ringer's 1,000 ML IV SCH (08:45)
--- NOTE | 2017-01-12 08:52 | PCM.SURG1 ---
<Kimberly Patterson - Last Filed: 01/12/17 08:48> Surgeon's Initial Post Op Note - Surgeon's Notes Surgeon: Dr. Garrido DPM Commercial [employer] Specialist: Dr. Kimberly Patterson DPM PGY-1, Myesha Stanley MS-4 Type of Anesthesia: IV Sedation, Local Anesthesia Administered By: Dr. 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 M: 3-0 vicryl, 3-0 Chromic gut. I: Pre-op 13 cc of 1:1 mixture of 1% lidocaine : 0.5% marcain mix Post-Operative Diagnosis: Same Operation Performed: Right foot 3rd digit amputation with removal of all non- viable soft tissue Specimen/Specimens Removed: Right foot 3rd digit Estimated Blood Loss: EBL {In ML}: 5 Blood Products Given: N/A Drains Used: No Drains Post-Op Condition: Good Date of Surgery/Procedure: 01/12/17 Time of Surgery/Procedure: 08:52 <Marquez Garrido - Last Filed: 01/13/17 10:54> Attending/Attestation - Attestation I have personally seen and examined this patient.: Yes I have fully participated in the care of the patient.: Yes I have reviewed all pertinent clinical information: Yes
[2017-01-12 10:02] VITALS: RESP 20; TEMP 97; O2SAT 99
[2017-01-12 10:17] VITALS: BP 183/77; PULSE 58
--- NOTE | 2017-01-12 10:34 | RAD ---
PROCEDURE: Right Foot Radiographs. HISTORY: s/p right foot surgery COMPARISON: None. FINDINGS: BONES: There has been amputation of the 3rd toe. Surgical dressing is seen on the dorsal side. The remainder the foot is unremarkable JOINTS: Normal. SOFT TISSUES: Normal. OTHER FINDINGS: None. IMPRESSION: There has been amputation of the 3rd toe. Surgical dressing is seen on the dorsal side. The remainder the foot is unremarkable
--- NOTE | 2017-01-16 02:37 | OP ---
PROCEDURE DATE: 01/12/2017 Dictated by Kimberly Patterson DPM on be half of Marquez Garrido DPM. PREOPERATIVE DIAGNOSIS: Right foot third digit gangrene. POSTOPERATIVE DIAGNOSIS: Right foot third digit gangrene. PROCEDURE: Right foot third digit amputation with removal of all nonviable soft tissue. SURGEON: Marquez Garrido DPM. [employer]: Kimberly Patterson DPM, PGY-1. TYPE OF ANESTHESIA: IV sedation with local. ANESTHESIA ADMINISTERED BY: Dr. Suggs. INDICATION: The patient is an 81-year-old female with above diagnosis. The patient has exhausted all conservative treatment at this time and now requires surgical intervention. The patient signed a consent after careful explanation of the risks, benefits, complication, and alternative for the procedure. No guarantees were given nor implied. PREPARATION: The patient was brought through the operating room table and placed on the operating room table in supine position. Time-out was performed for identification of the correct patient and the procedure. After induction of IV sedation, the patient received total of 13 mL of one-to-one mixture of 2% lidocaine plain, 0.5% Marcaine plain in a local block type fashion. Once the local anesthesia was achieved, the right foot and ankle was then prepped and draped in a normal sterile manner. No tourniquet was used during the procedure. DESCRIPTION OF PROCEDURE: Attention was then directed to the right foot third digit where the incision was made circumferentially around the wound on the digit using a #15 blade. At this time, the proximal phalanx of the third digit was visualized using a bone clamp. The proximal phalanx was stabilized and was disarticulated at the level of MTPJ with cartilage scissors. The digit was then passed off to pathology using a fresh #15 blade. All necrotic and nonviable soft tissue was excisionally debrided from surgical site. The surgical site was then irrigated with normal saline. At this time, subcutaneous layers were partially brought together using 3-0 Vicryl and skin layers were partially re-approximated with 3-0 chromic gut sutures. Both simple and retention suture technique was used to partially close the surgical site. The right foot was then dressed with Xeroform 4 x 4 gauze. POSTOPERATIVE CONDITION: The patient tolerated the anesthesia and procedure well and was escorted to the recovery room with vital signs stable and neurovascular status intact to the right foot. All the postoperative instructions were explained before the procedure. The patient will be seen and followed by Dr. Arevalo in outpatient and wound care center. Kimberly Patterson DPM Marquez Garrido DPM
== END 2017-01-12 10:45 | disposition home or self-care (01) ==
LOC: SDS 06:21
PROVIDERS: ATTEND Podiatrist
DX: E11.52 Type 2 diabetes mellitus with diabetic peripheral angiopathy with gangrene (principal); I25.10 Atherosclerotic heart disease of native coronary artery without angina pectoris; J45.909 Unspecified asthma, uncomplicated; J43.9 Emphysema, unspecified; I13.10 Hypertensive heart and chronic kidney disease without heart failure, with stage 1 through stage 4 chronic kidney disease, or unspecified chronic kidney disease; E07.9 Disorder of thyroid, unspecified; E11.21 Type 2 diabetes mellitus with diabetic nephropathy; E11.22 Type 2 diabetes mellitus with diabetic chronic kidney disease; N18.9 Chronic kidney disease, unspecified; F19.10 Other psychoactive substance abuse, uncomplicated; Z86.73 Personal history of transient ischemic attack (TIA), and cerebral infarction without residual deficits; D64.9 Anemia, unspecified
CPT/HCPCS: 28820; 73630; 82948; 87070; 87181; 88305; 88311; J0690; J2250; J3010; J7120 ×2

== ENCOUNTER 2017-04-05 16:38 | Inpatient (IN) | payer OTHER ==
[2017-04-05 16:39] VITALS: BMI 16.0
[2017-04-05] MEDS: Albuterol-Ipratrop 3 mg / 0.5 (3 ml) UD IH SCH ×3 (17:07→17:41)
[2017-04-05 17:23] LABS: BASO # 0.01 K/mm3 (0.0-2.0); BASO % 0.2 % (0.0-3.0); EOS # 0.2 (0.0-0.7); EOS % 2.8 % (1.5-5.0); GRAN # 3.77 (1.4-6.5); GRAN % 59.3 % (50.0-68.0); HEMOGLOBIN 10.5 g/dL (12.0-16.0); LYMPH # 1.6 (1.2-3.4); LYMPH % 24.5 % (22.0-35.0); MEAN CELL VOLUME 84.5 fl (80.0-105.0); MEAN CORPUSCULAR HEMOGLOBIN 27.1 pg (25.0-35.0); MEAN CORPUSCULAR HGB CONC 32.1 g/dl (31.0-37.0); MEAN PLATELET VOLUME 11.5 fl (7.0-11.0); MONO # 0.8 (0.1-0.6); MONO % 13.2 % (1.0-6.0); RBC 3.87 10^6/uL (3.5-6.1); RED CELL DISTRIBUTION WIDTH 14.3 % (11.5-14.5); WHITE BLOOD COUNT 6.4 10^3/ul (4.5-11.0)
[2017-04-05 17:28] LABS: VENOUS BLOOD GAS BASE EXCESS 2.1 mmol/L (0.0-2.0); VENOUS BLOOD GAS PO2 64 mm/Hg (30-55); VENOUS BLOOD PH 7.35 (7.32-7.43)
[2017-04-05 17:29] LABS: INR 0.94 (0.93-1.08); PARTIAL THROMBOPLASTIN TIME 31.3 Seconds (25.1-36.5); PROTHROMBIN TIME 10.7 SECONDS (9.4-12.5)
[2017-04-05 17:39] LABS: ALB/GLOB RATIO 1.1 (1.1-1.8); ALBUMIN 3.6 g/dL (3.0-4.8); CALCIUM 9.3 mg/dL (8.4-10.5)
[2017-04-05] MEDS ORDERED: Sodium Chloride 0.9% 1,000 ML IV STA (17:40)
[2017-04-05 17:45] LABS: TROPONIN I 0.03 ng/mL
[2017-04-05] MEDS: Insulin Regular 1 UNITS/0.01 ML ML IV STA ×4 (17:51→18:20)
[2017-04-05] MEDS ORDERED: Insulin Regular 1 UNITS/0.01 ML ML IV STA (18:29)
--- NOTE | 2017-04-05 19:09 | ED PDOC ---
Arrival/HPI - General Chief Complaint: Shortness Of Breath Time Seen by Provider: 04/05/17 16:42 Historian: Patient, Family, Electric Fork Operator - History of Present Illness Narrative History of Present Illness (Text): 04/05/17 19:06 Patient is an 81 yo female with past medical history of diabetes, wound care, presents to the Emergency Department with shortness of breath for the past 2 days, worse this afternoon. She denies chest pain. States she is short of breath with any exertion and she states that inhaler was not beneficial today. Denies new leg pain or swelling. Denies fevers. Denies abdominal pain or nausea or vomiting. Does report increased thirst and urination. Daughter is present and translates for patient. Time/Duration: Prior to Arrival Symptom Onset: Gradual Past Medical History - Infectious Disease Hx of Infectious Diseases: None - Tetanus Immunization Tetanus Immunization: Unknown - Reproductive Menopause: Yes - Cardiac Hx Cardiac Disorders: Yes Hx Hypertension: Yes Hx Pacemaker: No - Pulmonary Hx Respiratory Disorders: Yes Hx Asthma: Yes - Neurological Hx Paralysis: No - HEENT Hx HEENT Disorder: Yes Hx Blind: Yes (right eye sx) Hx Cataracts: Yes (left eye sx) - Renal Hx Renal Disorder: No - Endocrine/Metabolic Hx Endocrine Disorders: Yes Hx Diabetes Mellitus Type 2: Yes - Hematological/Oncological Hx Blood Transfusions: No Hx Blood Transfusion Reaction: No - Integumentary Hx Dermatological Disorder: Yes Hx Cellulitis: Yes - Musculoskeletal/Rheumatological Hx Musculoskeletal Disorders: Yes - Gastrointestinal Hx Gastrointestinal Disorders: No - Genitourinary/Gynecological Hx Genitourinary Disorders: No - Psychiatric Hx Emotional Abuse: No Hx Physical Abuse: No Hx Substance Use: No - Past Surgical History Past Surgical History: No Previous - Surgical History Other/Comment: Foot sx - Anesthesia Hx Anesthesia: Yes Hx Anesthesia Reactions: No Hx Malignant Hyperthermia: No - Suicidal Assessment Feels Threatened In Home Enviroment: No Family/Social History Family/Social History: Unknown Family HX Smoking Status: Never Smoked Hx Alcohol Use: No Hx Substance Use: No Hx Substance Use Treatment: No Allergies/Home Meds Allergies/Adverse Reactions: Allergies No Known Allergies Allergy (Verified 04/05/17 16:53) Home Medications: Home Meds Medication Instructions Recorded Confirmed Sitagliptin Phosphate [Januvia] 50 mg PO DAILY 06/13/13 04/05/17 Lovastatin 20 mg PO DAILY 09/13/13 04/05/17 Losartan/Hydrochlorothiazide 1 tab PO DAILY 01/25/14 04/05/17 [Losartan-Hctz 50-12.5 mg Tab] Montelukast [Singulair] 10 mg PO DAILY 01/25/14 04/05/17 Aspirin [Ecotrin] 81 mg PO DAILY 01/06/17 04/05/17 Carvedilol [Coreg] 6.25 mg PO BID 01/06/17 04/05/17 Review of Systems - Review of Systems Constitutional: Fatigue. absent: Fevers Eyes: absent: Vision Changes ENT: absent: Hearing Changes Respiratory: SOB. absent: Cough, Sputum, Wheezing Cardiovascular: Edema, LEE. absent: Chest Pain, Palpitations, Calf Pain Gastrointestinal: absent: Abdominal Pain, Nausea, Vomiting Genitourinary Female: absent: Dysuria, Frequency Musculoskeletal: absent: Back Pain, Neck Pain Skin: absent: Rash Neurological: absent: Headache, Dizziness, Focal Weakness Endocrine: Polyuria, Polydipsia Hemo/Lymphatic: absent: Easy Bleeding Physical Exam Vital Signs Reviewed: Yes Vital Signs Temp Pulse Resp BP Pulse Ox 04/05/17 21:22 183/83 H 04/05/17 16:50 98.0 F 70 18 184/85 H 100 04/05/17 16:41 18 100 Temperature: Afebrile Respiratory Rate: Tachypneic Appearance: Positive for: Well-Appearing, Non-Toxic Pain Distress: None Mental Status: Positive for: Alert and Oriented X 3 Finger Stick Blood Glucose: 315 - Systems Exam Head: Present: Atraumatic Pupils: Present: Other (eye changes at baseline) Extroacular Muscles: No: Gaze Palsy Ears: No: Erythema Mouth: Present: Moist Mucous Membranes Pharnyx: No: ERYTHEMA Nose (Internal): Present: Normal Inspection Neck: Present: Normal Range of Motion. No: Meningeal Signs Respiratory/Chest: Present: Wheezes, Tachypneic Cardiovascular: Present: Regular Rate and Rhythm, Murmurs Abdomen: No: Tenderness, Distention Back: No: CVA Tenderness Upper Extremity: No: Cyanosis Lower Extremity: Present: Edema Neurological: Present: Motor Func Grossly Intact, Normal Sensory Function Skin: Present: Warm. No: Diaphoretic Psychiatric: Present: Alert, Normal Insight, Normal Concentration Medical Decision Making ED Course and Treatment: 04/05/17 19:11 Patient's history supplemented by daughter. Reportedly she has prior pulmonary disease and uses inhaler, although patient denies past cardiac disease. EKG reveals LVH, t wave changes which were present on prior EKG. I reviewed abnormal EKG with patient and family. Patient denies chest discomfort. Nebulizers and solumedrol administered with improved but persistent wheezing. Hyperkalemic. Patient treated with multiple nebulizers and iv insulin as she is hyperglycemic. Daughter states that she is sensitive to higher does of insulin and "it drops quickly if she gets 10 units where she has a problem", thus she was administered lower dose of iv insulin for hyperkalemia. BNP elevated, I cannot exclude cardiac component of symptoms and possible component of CHF. Edema appears to be chronic as per family. Patient will be admitted for evaluation of possible CHF, wheezing, r/o KS, abnormal EKG, and treatment of hyperkalemia and hyperglycemia. 04/05/17 22:58 Labs and treatment plan reviewed with patient and family. Case d/w Dr. Cm, covering for PMD Dr. Rossi. Lasix ordered. kayexalate ordered. - Lab Interpretations Lab Results: 04/05/17 17:00 04/05/17 17:00 Lab Results 04/05/17 18:57: POC Glucose (mg/dL) 315 H 04/05/17 18:55: POC Glucose (mg/dL) 422 H* 04/05/17 18:02: POC Glucose (mg/dL) 392 H 04/05/17 17:00: PT 10.7, INR 0.94, APTT 31.3 04/05/17 17:00: Influenza Typ A,B (EIA) Negative for flu a/b 04/05/17 17:00: Sodium 135, Chloride 101, Potassium 5.8 H* D, Carbon Dioxide 25 , Anion Gap 15, BUN 19, Creatinine 1.1, Est GFR ( Amer) 57, Est GFR (Non- Af Amer) 47, Random Glucose 433 H* D, Calcium 9.3, Total Bilirubin 0.5, AST 47 H D, ALT 50, Alkaline Phosphatase 114, Lactate Dehydrogenase 574, Total Creatine Kinase 103, Troponin I 0.03 D, NT-Pro-B Natriuret Pep 2370 H, Total Protein 6.9, Albumin 3.6, Globulin 3.3, Albumin/Globulin Ratio 1.1 04/05/17 17:00: WBC 6.4, RBC 3.87, Hgb 10.5 L, Hct 32.7 L, MCV 84.5 D, MCH 27.1 , MCHC 32.1, RDW 14.3, Plt Count 176, MPV 11.5 H, Gran % 59.3, Lymph % (Auto) 24.5, [place] % (Auto) 13.2 H, Eos % (Auto) 2.8, Baso % (Auto) 0.2, Gran # 3.77, Lymph # (Auto) 1.6, [place] # (Auto) 0.8 H, Eos # (Auto) 0.2, Baso # (Auto) 0.01 04/05/17 16:50: pO2 64 H, VBG pH 7.35, VBG pCO2 52.0, VBG HCO3 28.7 H, VBG Total CO2 30.3 H, VBG O2 Sat (Calc) 96.5 H, VBG Base Excess 2.1 H, VBG Potassium 6.0 H, Sodium 133.0, Chloride 102.0, Glucose 463 H* D, Lactate 1.1, FiO2 21.0, Venous Blood Potassium 6.0 H 04/05/17 16:45: POC Glucose (mg/dL) 388 H - RAD Interpretation Narrative RAD Interpretations (Text): 04/05/17 19:11 cxr reveals pulmonary vascular congestion Radiology Orders: 04/05/17 16:51 CHEST PORTABLE [RAD] Stat Concrete Foreman: ED Physician - EKG Interpretation EKG Interpretation (Text): 04/05/17 19:10 EKG at 16:37 reveals normal sinus rhythm rate of 68 with left ventricular hypertrophy, and lateral t wave abnormality Interpreted by ED Physician: Yes Type: 12 lead EKG Comparison: Com.w/previous EKG - Medication Orders Current Medication Orders: Acetaminophen (Tylenol 325mg Tab) 650 mg PO Q6H PRN PRN Reason: Fever >100.4 F Albuterol/Ipratropium (Duoneb 3 Mg/0.5 Mg (3 Ml) Ud) 3 ml IH Q2H PRN PRN Reason: Shortness of Breath Albuterol/Ipratropium (Duoneb 3 Mg/0.5 Mg (3 Ml) Ud) 3 ml IH [id number] VALERIE Amlodipine Besylate (Norvasc) 5 mg PO DAILY [facility] Aspirin (Ecotrin) 81 mg PO DAILY [facility] Carvedilol (Coreg) 6.25 mg PO BID [facility] Furosemide (Lasix) 40 mg IVP DAILY [facility] Hydrochlorothiazide (Microzide) 12.5 mg PO DAILY [facility] Insulin Human Regular (Humulin R Med) 0 units SC ACHS VALERIE PRN Reason: Protocol Insulin Lispro Protam/Lispro Human (Humalog Mix 75/25) 10 units SC ACBD VALERIE Losartan Potassium (Cozaar) 50 mg PO DAILY [facility] Montelukast Sodium (Singulair) 10 mg PO DAILY [facility] Oxycodone/Acetaminophen (Percocet 5/325 Mg Tab) 1 tab PO Q6H PRN PRN Reason: Pain, severe (8-10) Stop: 04/08/17 21:22 Sitagliptin Phosphate (Januvia) 50 mg PO DAILY [facility] Discontinued Medications Albuterol/Ipratropium (Duoneb 3 Mg/0.5 Mg (3 Ml) Ud) 3 ml IH Q15M VALERIE Stop: 04/05/17 17:31 Last Admin: 04/05/17 17:41 Dose: 3 ml Furosemide (Lasix) 20 mg IVP STAT STA Stop: 04/05/17 20:35 Last Admin: 04/05/17 21:22 Dose: 20 mg MAR Blood Pressure Document 04/05/17 21:22 SS (Rec: 04/05/17 21:24 [id number]) Blood Pressure Blood Pressure (100/60-150/90) 183/83 IVP Administration Document 04/05/17 21:22 SS (Rec: 04/05/17 21:24 SS [id number]) Charges for Administration # of IVP Administrations 1 Sodium Chloride (Sodium Chloride 0.9%) 1,000 mls @ 1,000 mls/hr IV .Q1H STA Stop: 04/05/17 18:39 Last Admin: 04/05/17 17:41 Dose: 1,000 mls/hr eMAR Start Stop Document 04/05/17 17:41 SE (Rec: 04/05/17 17:41 SE [id number]) Intravenous Solution Start Date 04/05/17 Start Time 17:41 Insulin Human Regular (Humulin R) 10 units IV STAT STA Stop: 04/05/17 17:41 Last Admin: 04/05/17 17:58 Dose: Insulin Human Regular (Humulin R) 5 units IV STAT STA Stop: 04/05/17 18:00 Last Admin: 04/05/17 18:20 Dose: Insulin Human Regular (Humulin R) 4 units IV STAT STA Stop: 04/05/17 18:30 Last Admin: 04/05/17 18:31 Dose: 4 units eMAR Start Stop Document 04/05/17 18:31 SE (Rec: 04/05/17 18:31 SE [id number]) Intravenous Solution Start Date 04/05/17 Start Time 18:31 MAR Blood Glucose Document 04/05/17 18:31 SE (Rec: 04/05/17 18:31 SE [id number]) Blood Glucose Finger Stick Blood Glucose (70-120) 392 Methylprednisolone (Solu-Medrol) 125 mg IVP STAT STA Stop: 04/05/17 16:52 Last Admin: 04/05/17 17:07 Dose: 125 mg IVP Administration Document 04/05/17 17:07 SE (Rec: 04/05/17 17:07 SE [id number]) Charges for Administration # of IVP Administrations 1 Sodium Polystyrene Sulfonate (Kayexalate Susp) 30 gm PO STAT STA Stop: 04/05/17 20:35 Last Admin: 04/05/17 21:24 Dose: 30 gm Disposition/Present on Arrival - Present on Arrival Any Indicators Present on Arrival: Yes History of DVT/PE: No History of Uncontrolled Diabetes: Yes Urinary Catheter: No History of Decub. Ulcer: No History Surgical Site Infection Following: None - Disposition Have Diagnosis and Disposition been Completed?: Yes Diagnosis: Hyperglycemia, Hyperkalemia, Abnormal EKG, Wheezing, Congestive heart failure Disposition: HOSPITALIZED Disposition Time: 19:16 Patient Plan: Admission, Telemetry Patient Problems: Current Active Problems Problem Status Onset Abnormal EKG Acute Congestive heart failure Acute Hyperglycemia Acute Hyperkalemia Acute Wheezing Acute Condition: SERIOUS
[2017-04-05] MEDS ORDERED: Sod Polystyrene Sulf 15 gm/60 ml Susp PO STA (20:34)
[2017-04-05] MEDS ORDERED: Albuterol-Ipratrop 3 mg / 0.5 (3 ml) UD IH PRN (21:06)
[2017-04-05] MEDS ORDERED: Oxycodone/Acetaminophen 5/325 mg Tab PO PRN (21:21)
[2017-04-05] MEDS ORDERED: MethylPREDNISolone 40 mg Vial IV SCH (22:00)
--- NOTE | 2017-04-06 00:31 | CARD ---
APPROVED REPORT EKG Measurement Heart [id number] <Conclusion> Normal sinus rhythm Possible Left atrial enlargement Rightward axis Left ventricular hypertrophy T wave abnormality, consider lateral ischemia Abnormal ECG
[2017-04-06] MEDS: Insulin Reg-MEDIUM-Coverage SC SCH ×5 (00:41→22:11)
[2017-04-06] MEDS: Albuterol-Ipratrop 3 mg / 0.5 (3 ml) UD IH SCH ×4 (02:23→21:06)
--- NOTE | 2017-04-06 04:39 | HP ---
HISTORY OF PRESENT ILLNESS: The patient is 81-year-old who came to emergency room because of increasing shortness of breath, more so with exertion. The patient denies any fever or chills. No history of nausea, vomiting, or diarrhea. She does not have any significant chest pain. The patient states the shortness of breath is going on for last two days, got worse today. There is no associated nausea. No hemoptysis. No hematemesis. PAST MEDICAL HISTORY: Significant for: 1. Insulin-dependent diabetes. 2. Hypertension. 3. Hyperlipidemia. 4. History of peripheral vascular disease. The patient has cardiac cath done. 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 She had third toe gangrene. ALLERGIES: SHE IS NOT ALLERGIC TO ANY MEDICATIONS. PAST SURGICAL HISTORY: Significant for left cataract extraction. MEDICATIONS AT HOME: She is on Percocet. She is on amlodipine 5 mg daily, Januvia 50 mg daily, Singulair 10 mg daily, lovastatin 100 mg daily, losartan, Levemir 6 units at bedtime, Colace, carvedilol 6.25 twice a day, aspirin 81 daily. SOCIAL HISTORY: She lives with her daughter. Denies smoking, drinking, or alcohol use. REVIEW OF SYSTEMS: Significant for shortness of breath. No history of fever or chills. No nausea or vomiting. PHYSICAL EXAMINATION: GENERAL: She is awake and alert, able to communicate. VITAL SIGNS: She is afebrile, pulse 70, respirations 18, blood pressure 184/85. LUNGS: Bilateral few occasional expiratory rhonchi. Soft crackles and wheezes. HEART: S1 and S2 audible. ABDOMEN: Soft. Nontender. No rebound. No guarding. NEUROLOGIC: The patient is awake, alert, oriented, able to communicate. LABORATORY DATA: WBC 6.4, hemoglobin 10.5, hematocrit 32.7, platelet 176. PT 9.7, INR 0.97. Chemistry: Sodium 135, potassium 5.8, chloride 101, CO2 of 25, BUN 19, creatinine 1.1, blood sugar of 433, BNP 2370, troponin 0.03. Otherwise, LFTs are normal. Flu test is negative. X-ray chest shows venous congestion. ASSESSMENT: 1. Shortness of breath with diabetes. Rule out underlying ischemia. 2. Congestive heart failure. 3. Insulin-dependent diabetes. 4. Hypertension. 5. Hyperlipidemia. PLAN: The patient will be admitted. We will start her on nebulizer treatment. We will start her on diuretics, monitor blood sugar. Order for echocardiogram. We will follow up electrolyte in a.m. Hyperkalemia has been treated by Dr. Orozco. She was given Kayexalate, nebulizer treatment, and calcium gluconate. We will follow up this patient in a.m. Follow up electrolytes. Michale Cm MD
[2017-04-06] MEDS ORDERED: Insulin Regular 1 UNITS/0.01 ML ML SC ONE (04:48)
[2017-04-06 06:58] LABS: FREE T4 0.99 ng/dL (0.78-2.19)
[2017-04-06 07:28] LABS: ALB/GLOB RATIO 1.1 (1.1-1.8); ALBUMIN 3.6 g/dL (3.0-4.8); CALCIUM 9.9 mg/dL (8.4-10.5); URIC ACID 4.4 mg/dL (2.5-6.2)
--- NOTE | 2017-04-06 08:42 | RAD ---
HISTORY: sob COMPARISON: 01/06/2017 FINDINGS: LUNGS: Linear scar right apex. There is a small ovoid nodular O opacity in the right lung apex, unchanged compared to multiple prior examinations dating back to at least 2013. Likely granulomatous. PLEURA: No significant pleural effusion identified, no pneumothorax apparent. CARDIOVASCULAR: Normal. OSSEOUS STRUCTURES: No significant abnormalities. VISUALIZED UPPER ABDOMEN: Normal. OTHER FINDINGS: None. IMPRESSION: No active disease.
[2017-04-06] MEDS ORDERED: Non Formulary Medication (Losartan/Hydrochlorothiazide [Losartan-Hctz 50-12.5 Mg Tab] 1 TA PO SCH (10:00)
[2017-04-06] MEDS: Insulin Lispro (humaLOG) MIX 75/25(10 ml) SC SCH ×2 (10:57→18:06)
--- NOTE | 2017-04-06 17:08 | CARD ---
APPROVED REPORT EXAM: Two-dimensional and M-mode echocardiogram with Doppler and color Doppler. INDICATION Pericardial Effusion 2D DIMENSIONS Left Atrium (2D)3.7 (1.6-4.0cm)IVSd1.3 (0.7-1.1cm) LVDd4.4 (3.9-5.9cm)PWd1.2 (0.7-1.1cm) LVDs2.8 (2.5-4.0cm)FS (%) 36.3 % LVEF (%)66.3 (>50%) M-Mode DIMENSIONS Aortic Root2.20 (2.2-3.7cm)Aortic Cusp Exc.1.60 (1.5-2.0cm) Aortic Valve AoV Peak Vzlybxnw910.0cm/Jovanny Peak GR.10mmHgAI P 1/2 [id number] Mitral Valve MV E Tyhlhvtt95.8cm/sMV A Qrkmwxab88.9cm/sE/A ratio0.9 TDI E/Lateral E'0.0E/Medial E'0.0 Tricuspid Valve TR Peak Kvagmtsr276ni/sRAP [id number] Peak Gr.17mmHg [id number] LEFT VENTRICLE The left ventricle is normal size. There is mild concentric left ventricular hypertrophy. The left ventricular function is normal. The left ventricular ejection fraction is within the normal range. There is normal LV segmental wall motion. Transmitral Doppler flow pattern is Grade I-abnormal relaxation pattern. RIGHT VENTRICLE The right ventricle is normal size. There is normal right ventricular wall thickness. The right ventricular systolic function is normal. ATRIA The left atrium size is normal. The right atrium size is normal. AORTIC VALVE The aortic valve is moderately thickened. There is mild aortic regurgitation. MITRAL VALVE The mitral valve is moderately thickened. Mitral regurgitation is mild. GREAT VESSELS The aortic root is normal in size. PERICARDIAL EFFUSION There is a small circumferential pericardial effusion. Slight degree of diatolic compression of the Right Atrium <Conclusion> The left ventricle is normal size. There is mild concentric left ventricular hypertrophy. The left ventricular function is normal. The left ventricular ejection fraction is within the normal range. There is normal LV segmental wall motion. Transmitral Doppler flow pattern is Grade I-abnormal relaxation pattern. There is mild aortic regurgitation. Mitral regurgitation is mild. There is a small circumferential pericardial effusion. Slight degree of diatolic compression of the Right Atrium
--- NOTE | 2017-04-06 18:53 | PN ---
DATE: SUBJECTIVE: Patient is 81 years old, seen and examined, lying in bed, seems to be comfortable. Denies any chest pain. No shortness of breath. No nausea, vomiting, or diarrhea. PHYSICAL EXAMINATION: VITAL SIGNS: She is afebrile, pulse 70, respirations 18, blood pressure 157/87. LUNGS: Bilateral good airflow. No rhonchi or crackle. HEART: S1, S2 audible. ABDOMEN: Soft, nontender. No rebound. No guarding. NEUROLOGIC: Patient is awake, alert, and able to communicate. LABORATORY DATA: WBC 6.4, hemoglobin 10.5, hematocrit 32.7, platelet 176. Chemistry: Her blood sugar is 202, hemoglobin A1c is 12.5. Her flu test is negative. Echocardiogram is pending. ASSESSMENT: 1. Asthmatic bronchitis. 2. Congestive heart failure. 3. Insulin-dependent diabetes. PLAN: Patient is clinically stable. We will follow up echocardiogram. Patient's blood sugar seemed to be very uncontrolled. I will reach out to the family to improve her plans with her medication for diabetes and will follow up this patient in the a.m. and make discharge plan. Michael Cm MD
[2017-04-06 23:51] VITALS: O2SAT 100
--- NOTE | 2017-04-07 01:29 | CON ---
DATE: 04/06/2017 CARDIOLOGY CONSULTATION HISTORY OF PRESENT ILLNESS: The patient is an 81-year-old woman who presents with progressive shortness of breath. She denies chest pain. PAST MEDICAL HISTORY: Includes diabetes mellitus, hypertension, hyperlipidemia, and peripheral vascular disease. She has documented gangrene in the digits of the lower extremities in the past. SOCIAL HISTORY: Does not smoke. MEDICATIONS: She is on multiple medications for hypertension. REVIEW OF SYSTEMS: Fourteen-point review of systems was reviewed in detail. Other than the shortness of breath, there is no edema in the lower extremities. No angina noted. CARDIAC WORKUPS: Her previous echo revealed good LV function with a small pericardial effusion. PHYSICAL EXAMINATION: GENERAL: The patient is in no acute distress. VITAL SIGNS: Blood pressure is 144/78, heart rate is in the 70s. NECK: Negative JVD. LUNGS: Clear to auscultation. HEART: Reveal S1, S2. EXTREMITIES: Without edema. LABORATORY DATA: Hemoglobin is 10.5. Chemistries: Glucose is now down to 202. BUN and creatinine are unremarkable. Troponin is negative x1. The ProBNP is mildly elevated. Repeat echocardiogram reveals small pericardial effusion, no evidence for tamponade. IMPRESSION: 1. Acute diastolic congestive heart failure. 2. Diabetes mellitus. 3. Hypertension. 4. Peripheral vascular disease. 5. Hypercholesterolemia. PLAN: Given these findings, the patient has responded well to IV Lasix. I would consider placing her on long-term Lasix 20 mg a day as an outpatient. If the patient is stable tomorrow, the patient can be discharged. We will arrange for an outpatient stress test to rule out coronary artery disease given her cardiac risk factors. Cj May MD
[2017-04-07] MEDS: Albuterol-Ipratrop 3 mg / 0.5 (3 ml) UD IH SCH ×3 (02:35→13:43)
[2017-04-07 07:20] LABS: PH,URINE 5.5 (4.7-8.0); URINE BILIRUBIN NEGATIVE (NEGATIVE); URINE BLOOD NEGATIVE (NEGATIVE); URINE GLUCOSE (UA) 250 mg/dL (NEGATIVE); URINE LEUKOCYTE ESTERASE SMALL Leu/uL (NEGATIVE); URINE NITRATE NEGATIVE (NEGATIVE); URINE PROTEIN 30 mg/dL (<30 mg/dL); URINE UROBILINOGEN 0.2 E.U./dL (<1 E.U./dL)
[2017-04-07 07:21] LABS: URINE APPEARANCE SL CLOUDY (CLEAR); URINE COLOR YELLOW (YELLOW)
[2017-04-07 07:23] LABS: URINE BACTERIA MANY (NEG); URINE RBC NEGATIVE /hpf (0-2); URINE WBC TNTC /hpf (0-6)
[2017-04-07] MEDS: Insulin Reg-MEDIUM-Coverage SC SCH ×2 (08:27→11:41)
[2017-04-07] MEDS: Insulin Lispro (humaLOG) MIX 75/25(10 ml) SC SCH (08:27)
[2017-04-07 12:31] VITALS: BP 138/61; PULSE 65; RESP 20; TEMP 98
--- NOTE | 2017-04-07 15:33 | PN ---
DATE: COVERING FOR: Cj May MD. SUBJECTIVE: The patient denies any shortness of breath or chest pain. PHYSICAL EXAMINATION: VITAL SIGNS: Blood pressure 138/61, heart rate 65, temperature 98, respirations 20. HEENT: Corneal opacity. NECK: No JVD. CHEST: Bibasilar rhonchi. HEART: S1 and S2, regular. ABDOMEN: Soft. EXTREMITIES: No edema. DIAGNOSTIC DATA: EKG revealed sinus rhythm, left atrial enlargement, rightward axis, and T-wave abnormality, consider lateral ischemia. Echocardiographic study revealed mild concentric LVH with normal ejection fraction, mild aortic insufficiency, small circumferential pericardial effusion, no evidence of tamponade with slight diastolic compression of the right atrium. Hemoglobin and hematocrit 10.5 and 32.7, white count and platelet count are within normal limit. ASSESSMENT: 1. Small pericardial effusion. 2. Acute diastolic heart failure. 3. Hypertension. 4. Peripheral vascular disease. 5. Hyperlipidemia. 6. Uncontrolled diabetes mellitus. 7. Mild anemia. RECOMMENDATIONS: Continue Coreg 6.25 mg twice a day, Cozaar 50 mg once a day, aspirin 81 mg once a day, Lasix at 20 mg once a day, Norvasc at 5 mg once a day, and Singulair 10 mg once a day. Gerald Cabrales MD
--- NOTE | 2017-04-08 02:21 | DS ---
HISTORY OF PRESENT ILLNESS: The patient is 81 years old, seen and examined, doing well and anxious to go home. No nausea, vomiting. No diarrhea. PHYSICAL EXAMINATION: VITAL SIGNS: She is afebrile, pulse rate 65, respirations 20, blood pressure 136/61. LUNGS: Bilateral fair airflow. No rhonchi or crackle. HEART: S1 and S2 audible. ABDOMEN: Soft. Nontender. No rebound. No guarding. NEUROLOGIC: She is awake, alert, oriented, able to communicate, ambulatory. LABORATORY EXAM: Blood sugar is 122. Her right foot wound shows Staphylococcus aureus. Blood cultures are negative. She has echocardiogram done that showed left ventricle is normal in size. Mild concentric LVH. Left ventricular function is normal. Left ventricular ejection fraction within normal limits and there is mild aortic regurg, mild mitral regurg and there is small circumferential pericardial effusion, slight degree of diastolic compression of right atrium. ASSESSMENT: 1. Mild congestive heart failure, acute on chronic; diastolic dysfunction. 2. Hypertension. 3. Xao-ftxqarq-lamwenafa diabetes. 4. Hyperlipidemia. PLAN: The patient is being discharged home today. She will resume all her medications including amlodipine 5 mg daily, Januvia, Singulair, Lovastatin, losartan, carvedilol 6.25 twice a day, Lasix 20 mg daily, aspirin 81 daily. The patient has been scheduled for stress test as outpatient next week by Dr. May and further recommendation will be made after stress test to modify any medication. The patient is advised to follow up with her PMD. Michael Cm MD
== END 2017-04-07 16:38 | disposition home or self-care (01) | DRG 127 ==
LOC: ED 16:38 → ERH 20:35 → 2RSO 04-06 00:16
PROVIDERS: ADMIT Internal Medicine; ATTEND Internal Medicine
DX: I11.0 Hypertensive heart disease with heart failure (principal); I50.33 Acute on chronic diastolic (congestive) heart failure; E11.51 Type 2 diabetes mellitus with diabetic peripheral angiopathy without gangrene; E11.65 Type 2 diabetes mellitus with hyperglycemia; E87.5 Hyperkalemia; E78.00 Pure hypercholesterolemia, unspecified; J45.909 Unspecified asthma, uncomplicated; I31.3 Pericardial effusion (noninflammatory); D64.9 Anemia, unspecified; Z79.4 Long term (current) use of insulin; Z79.82 Long term (current) use of aspirin; Z98.42 Cataract extraction status, left eye

== ENCOUNTER 2018-05-23 09:24 | Outpatient (CLI) | payer OTHER | END 2018-05-23 09:25 | disposition home or self-care (01) | LOC: RAD 09:24 ==